=== PATIENT | female | born 1940 | race Caucasian/White ===

== ENCOUNTER 2016-11-13 10:02 | Inpatient (IN) | payer MEDICARE ==
[2016-11-13] MEDS ORDERED: SODIUM CHLORIDE 0.9% 1,000 ML IV STA (10:28)
[2016-11-13] MEDS ORDERED: ACETAMINOPHEN TAB 325 MG TAB PO STA (10:28)
--- NOTE | 2016-11-13 10:37 | ED ---
Fever HPI - General Chief Complaint: Fever Stated Complaint: fever Time Seen by Provider: 11/13/16 10:12 Source: patient Mode of arrival: ambulatory Limitations: no limitations - History of Present Illness Initial Comments: 76-year-old female presents with onset of cough for 2 days. Began having a fever that day [place] night. Up to 101. She then began having some diarrhea and loose stools. His been on no recent antibiotics. Her cough is nonproductive. She has not been eating or drinking well the last 2 days. She anticipated her fever would resolve his private viral. She had a URI about a week and a half ago. She denies any earache sore throat runny nose no frequency urgency dysuria. Patient has had a non-Hodgkin's B-cell lymphoma diagnosed in January 2011 she is no longer on chemotherapy but follows with the oncologist. She had a history of hypertension no diabetes seizures stroke asthma. She has Sjogren syndrome. She also has a history of atrial fibrillation flutter. - Related Data Home Medications Medication Instructions Recorded Confirmed Hydroxychloroquine Sulfate 200 mg PO BID 05/26/15 11/13/16 [Plaquenil] LORazepam [Ativan] 1 mg PO HS PRN 05/26/15 11/13/16 Levothyroxine Sodium [Synthroid] 88 mcg PO SUTUWETHSA 05/26/15 11/13/16 Levothyroxine Sodium [Synthroid] 132 mcg PO MOFR 05/26/15 11/13/16 Pilocarpine [Salagen] 5 mg PO TID 05/26/15 11/13/16 Ranitidine HCl 150 mg PO BID 05/26/15 11/13/16 cycloSPORINE 0.05% OPHTH SOLN 1 drop BOTH EYES BID 05/26/15 11/13/16 [Restasis] Hydrocodone/Acetaminophen 1 tab PO TID PRN 08/31/15 11/13/16 [Hydrocodon-Acetaminophen 5-325] Apixaban [Eliquis] 2.5 mg PO BID 07/28/16 11/13/16 Biotin 5 mg PO DAILY 07/28/16 11/13/16 Spironolactone [Aldactone] 25 mg PO DAILY 07/28/16 11/13/16 Amiodarone [Cordarone] 100 mg PO DAILY 02/26/17 02/26/17 amLODIPine [Norvasc] 5 mg PO DAILY PRN 11/13/16 11/13/16 Previous Rx's Medication Instructions Recorded predniSONE 1 mg PO DAILY tab 09/04/15 Allergies Allergy/AdvReac Type Severity Reaction Status Date / Time Iodinated Contrast Media - Allergy Rash/Hives Verified 11/13/16 12:10 Oral and [Iodinated Contrast Media - IV Dye] Review of Systems ROS Statement: Those systems with pertinent positive or pertinent negative responses have been documented in the HPI. ROS Other: All systems not noted in ROS Statement are negative. Constitutional: Reports: fever, weakness. Denies: chills Eyes: Denies: eye discharge ENT: Denies: ear pain, throat pain Respiratory: Reports: cough. Denies: dyspnea, wheezes Cardiovascular: Denies: chest pain Endocrine: Reports: fatigue Gastrointestinal: Reports: diarrhea (Loose stools 3 a day). Denies: abdominal pain, nausea, vomiting Genitourinary: Denies: urgency, dysuria, frequency Musculoskeletal: Denies: back pain Skin: Denies: rash Neurological: Denies: headache Psychiatric: Denies: anxiety, depression Hematological/Lymphatic: Denies: easy bleeding, easy bruising Past Medical History Past Medical History: Cancer, Deep Vein Thrombosis (DVT), GERD/Reflux, Osteoarthritis (OA), Thyroid Disorder Additional Past Medical History / Comment(s): autoimmune hepatits (1994), sjogrens, lupus, osteoporosis, lymphoma-monthly chemo treatments History of Any Multi-Drug Resistant Organisms: None Reported Past Surgical History: Appendectomy, Breast Surgery, Cholecystectomy, Tonsillectomy Additional Past Surgical History / Comment(s): breast biopsy, paola cataracts, Past Anesthesia/Blood Transfusion Reactions: No Reported Reaction Past Psychological History: No Psychological Hx Reported Smoking Status: Never smoker Past Alcohol Use History: None Reported Past Drug Use History: None Reported - Past Family History Mother Family Medical History: No Reported History, Osteoarthritis (OA) General Exam Limitations: no limitations General appearance: alert, in no apparent distress Head exam: Present: atraumatic Eye exam: Present: normal appearance, PERRL, EOMI ENT exam: Present: normal oropharynx, mucous membranes dry Neck exam: Present: normal inspection. Absent: meningismus Respiratory exam: Present: rales (Left base and anterior right) Cardiovascular Exam: Present: normal heart sounds GI/Abdominal exam: Present: soft. Absent: distended, tenderness Neurological exam: Present: alert, CN II-XII intact Psychiatric exam: Present: normal affect, normal mood Skin exam: Present: warm, dry Course Vital Signs 11/13/16 11/13/16 11/13/16 10:04 10:27 10:48 Temperature 101.2 F H Pulse Rate 60 50 L Respiratory 18 16 16 Rate Blood Pressure 196/79 173/79 O2 Sat by Pulse 98 99 Oximetry Medical Decision Making - Medical Decision Making Spoke with Dr. Perez for Dr Chambers will admit - Lab Data Result diagrams: 11/13/16 10:45 11/13/16 10:45 Lab Results 11/13/16 11/13/16 11/13/16 Range/Units 10:45 10:45 10:50 WBC 4.0 (3.8-10.6) k/uL RBC 4.15 (3.80-5.40) m/uL Hgb 12.7 (11.4-16.0) gm/dL Hct 39.5 (34.0-46.0) % MCV 95.2 (80.0-100.0) fL MCH 30.6 (25.0-35.0) pg MCHC 32.1 (31.0-37.0) g/dL RDW 14.8 (11.5-15.5) % Plt Count 133 L (150-450) k/uL Neutrophils % (Manual) 83.0 % Lymphocytes % (Manual) 4.0 % Monocytes % (Manual) 13.0 % Neutrophils # (Manual) 3.3 (1.3-7.7) k/uL Lymphocytes # (Manual) 0.2 L (1.0-4.8) k/uL Monocytes # (Manual) 0.5 (0-1.0) k/uL Nucleated RBCs 0 (0-0) /100 WBC Manual Slide Review Performed Polychromasia Present Sodium 135 L (137-145) mmol/L Potassium 5.9 H (3.5-5.1) mmol/L Chloride 104 (98-107) mmol/L Carbon Dioxide 20 L (22-30) mmol/L Anion Gap 11 mmol/L BUN 20 H (7-17) mg/dL Creatinine 1.45 H (0.52-1.04) mg/dL Est GFR (MDRD) Af Amer 43 (>60 ml/min/1.73 sqM) Est GFR (MDRD) Non-Af 35 (>60 ml/min/1.73 sqM) Glucose 86 (74-99) mg/dL Calcium 9.2 (8.4-10.2) mg/dL Total Bilirubin 0.8 (0.2-1.3) mg/dL AST 32 (14-36) U/L ALT 32 (9-52) U/L Alkaline Phosphatase 123 (38-126) U/L Total Protein 8.4 H (6.3-8.2) g/dL Albumin 4.0 (3.5-5.0) g/dL Urine Color Yellow Urine Appearance Cloudy H (Clear) Urine pH 6.0 (5.0-8.0) Ur Specific Carmen 1.010 (1.001-1.035) Urine Protein 1+ H (Negative) Urine Glucose (UA) Negative (Negative) Urine Ketones Negative (Negative) Urine Blood Small H (Negative) Urine Nitrate Positive H (Negative) Urine Bilirubin Negative (Negative) Urine Urobilinogen <2.0 (<2.0) mg/dL Ur Leukocyte Esterase Trace H (Negative) Urine RBC 6 H (0-5) /hpf Urine WBC 12 H (0-5) /hpf Ur Squamous Epith Cells 8 H (0-4) /hpf Urine Bacteria Rare H (None) /hpf Urine Mucus Occasional H (None) /hpf - EKG Data -: EKG Interpreted by 11/13/16 11:31 EKG 11/13/2016 1123 ventricular rate 48 bpm, SC interval 154 ms, QRS duration and 32 ms, QT interval 500 ms, sinus bradycardia with right bundle branch block left anterior fascicular block - Radiology Data Radiology results: report reviewed Chronic chest x-ray changes with patchy left infiltrate or atelectasis. Disposition Clinical Impression: Community acquired pneumonia, UTI (urinary tract infection), B-cell lymphoma, Hyperkalemia Disposition: ADMITTED IP TO THIS HOSP Condition: Fair Referrals: Vitaly Chambers MD [Primary Care Provider] - 1-2 days Time of Disposition: 12:17
[2016-11-13 11:01] LABS: Appearance,Urine Cloudy (Clear); Bacteria,Urine Rare /hpf; Bilirubin,Urine Negative (Negative); Glucose,Urine (UA) Negative (Negative); Ketones,Urine Negative (Negative); Leukocyte Esterase,Urine Trace (Negative); Mucus,Urine Occasional /hpf; Nitrite,Urine Positive (Negative); Particle Count 96513; Protein,Urine 1+ (Negative); RBC,Urine 6 /hpf (0-5); Squamous Epithelial Cell,Urine 8 /hpf (0-4); UA Billing (MACRO vs. MICRO) MICRO; Urobilinogen,Urine <2.0 mg/dL (<2.0); WBC,Urine 12 /hpf (0-5)
[2016-11-13 11:01] LABS: Aty Lym Flag Slight; CH 30.7; CHCM 32.4; HCT 39.5 % (34.0-46.0); HDW 2.84; HGB 12.7 gm/dL (11.4-16.0); MCH 30.6 pg (25.0-35.0); MCHC 32.1 g/dL (31.0-37.0); MCV 95.2 fL (80.0-100.0); Mean Platelet Volume 7.2; RBC 4.15 m/uL (3.80-5.40); RDW 14.8 % (11.5-15.5); WBC (Perox) 4.08
[2016-11-13 11:05] LABS: Calcium 9.2 mg/dL (8.4-10.2); Potassium 5.9 mmol/L (3.5-5.1); Total Bilirubin 0.8 mg/dL (0.2-1.3); Total Protein 8.4 g/dL (6.3-8.2)
--- NOTE | 2016-11-13 11:13 | XR ---
EXAMINATION TYPE: XR chest 2V DATE OF EXAM: 11/13/2016 11:03 AM COMPARISON: 08/31/2015 HISTORY: 76-year-old female cough, fever TECHNIQUE: PA and lateral views FINDINGS: Heart remains upper limits of normal in size. Chronic interstitial prominence, possible chronic bronc hitis/asthma. There is some new patchy retrocardiac and left basilar density. No pleural effusion. IMPRESSION: Chronic changes with some new patchy left basilar atelectasis or early infiltrate.
[2016-11-13 11:34] LABS: Add Differential Manual Differential
[2016-11-13 11:37] LABS: Nucleated Red Blood Cells 0 /100 WBC (0-0); Total Cells Counted 100
[2016-11-13 11:38] LABS: Manual Review Performed; Polychromasia Present
[2016-11-13] MEDS ORDERED: amLODIPine 5 MG TAB PO STA (11:55)
[2016-11-13] MEDS ORDERED: NALOXONE 0.4 MG/ML 1 ML VIAL IV PRN (12:18)
[2016-11-13] MEDS ORDERED: ACETAMINOPHEN TAB 325 MG TAB PO PRN (12:20)
[2016-11-13] MEDS ORDERED: HYDROcodone/APAP 5-325MG 1 EACH TAB PO PRN (12:22)
[2016-11-13] MEDS ORDERED: amLODIPine 5 MG TAB PO PRN (12:22)
[2016-11-13] MEDS ORDERED: AZITHROMYCIN 500 MG in SODIUM CHLORIDE 0.9% 250 ML IVPB STA (12:33)
[2016-11-13] MEDS ORDERED: 0.9% NACL WITH KCL 20 MEQ/L 1,000 ML IV ONE (13:00)
[2016-11-13 14:59] VITALS: BMI 28.2
[2016-11-13] MEDS: SODIUM CHLORIDE 0.9% 1,000 ML IV SCH (17:08)
[2016-11-13] MEDS: PILOCARPINE 5 MG TAB PO SCH ×2 (17:49→22:33)
[2016-11-13] MEDS ORDERED: SODIUM POLYSTYRENE SULFONATE 15 GM/60 ML BOTTLE PO STA (18:20)
[2016-11-13] MEDS: FAMOTIDINE 20 MG TAB PO SCH (20:40)
[2016-11-13] MEDS: APIXABAN 2.5 MG TABLET PO SCH (22:33)
[2016-11-13] MEDS: HYDROXYCHLOROQUINE SULFATE 200 MG TAB PO SCH (22:33)
[2016-11-13] MEDS: cycloSPORINE 0.05% OPHTH 0.4 ML DROPERETTE BOTH EYES SCH (22:33)
[2016-11-14] MEDS: SODIUM CHLORIDE 0.9% 1,000 ML IV SCH ×2 (05:47→20:53)
[2016-11-14] MEDS ORDERED: LEVOTHYROXINE 88 MCG TAB PO SCH (06:30)
[2016-11-14 08:11] LABS: Calcium 8.2 mg/dL (8.4-10.2); Magnesium 1.7 mg/dL (1.6-2.3); Potassium 5.5 mmol/L (3.5-5.1); Uric Acid 5.3 mg/dL (3.7-7.4)
[2016-11-14 08:27] LABS: Aty Lym Flag Slight; CH 30.7; CHCM 31.5; HCT 37.3 % (34.0-46.0); HDW 2.91; HGB 11.6 gm/dL (11.4-16.0); Hypochromasia Slight; MCH 30.4 pg (25.0-35.0); MCV 97.9 fL (80.0-100.0); Mean Platelet Volume 8.4; RBC 3.81 m/uL (3.80-5.40); RDW 14.9 % (11.5-15.5); WBC (Perox) 4.09
--- NOTE | 2016-11-14 08:47 | HP ---
DATE OF ADMISSION: 11/13/2016 FULL CODE. DATA: She is 5 foot, 6 inches. Her weight 79.37 kg. Body surface area 1.89 m2. Body mass index 28.2 kg/m2. Allergy to IODINATED CONTRAST MEDIA and ORAL CONTRAST and others. The history and chief complain. Patient presented to the emergency room brought from the [facility] to the emergency room. CHIEF COMPLAINT: Not feeling well, having cold symptoms and she had a fever. HISTORY OF PRESENT ILLNESS: Patient seen and evaluated by the ER physician, Dr. Jacques Mcknight and he stated that she has been onset of cough and she had fever on Monday up to 101. She had then diarrhea and loose bowels, but no recent antibiotic. She had a cough, but nonproductive and she is not eating or drinking in the last 2 days and she was anticipated that will be all resolved and she was brought by private car. PAST MEDICAL HISTORY: She had history of upper respiratory tract infection and she was seen by Dr. Chambers with cold symptoms and he is advised her that if she has any further problem or increased temperature, she may have to call him. Subsequently as symptom appeared during the weekend and he is out of town, patient came to the ER. Currently she denies any ear aches, sore throat, frequency of urination. She had history of B-cell lymphoma and was non-Hodgkin and she was treated by Dr. Ornelas with the two cycles of chemotherapy and it ( ) and since then she had no problem and was diagnosed in [address] Chambers on October [address] Ornelas one week later. PAST MEDICAL HISTORY: She had history of osteoporosis. However, currently in the lab in the ER found that she has also hyperkalemia and they did give her Kayexalate one dose. On the reviewing of the symptoms, neuropsychiatry was negative. She is conscious, alert, oriented, no headache. No blurred vision. On the cardiovascular, she has history of atrial fibrillation. She has been treated with apixaban as well as with amiodarone. She was converted to sinus by Dr. Fariha Salazar who is her shear grinder operator and she did see Dr. Fariha Salazar recently and he told her that her heart rate average of 45 but sinus. The other medical problem including no recurrent of the B-cell lymphoma. On her kidney, I did ask about any previous history of kidney disease. She denied; however, she had increase BUN and creatinine, mainly the creatinine is elevated. Currently no nausea and vomiting and no hematochezia or hematemesis or melena. She has been seen by a liver foreign banknote teller specialist closer to [place] where he advised her that she had autoimmune liver disease that was 5 years ago and she still has been following with him and she has been taking prednisone 1 mg once a day and has been adjusting that prednisone for her. The question if the patient has underlying adrenal insufficiency or not that will be ( ). We will obtain a cortisol level in a.m. She had underlying history of hypertension and she checked her blood pressure at the [facility]. If it is more than 140, Dr. Chambers advised her to take amlodipine. She denied any edema of the lower extremities and denied any urinary symptoms at this time or genitourinary symptoms. No history of pneumonia in the past. She had surgical history of gallbladder, laparoscopic cholecystectomy and she had history of appendectomy and she had history of tonsillectomy at the age of 13. SOCIAL HISTORY: She is a and she has no children. She denies any numbness or tingling or previous stroke. 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 On the examination, patient is conscious, alert, oriented x3. She is giving a good history. Her temperature 98.3 orally. Her pulse rate has been in the average 45 to 50 with the bradycardia and regular sinus. Her blood pressure was on admission 173/79 and currently 152/70 and her pulse ox was 95%. On exam, she is conscious, alert, oriented x3. Her pupils are equal, reactive she had a previous cataract removed with implants by Dr. Rivas. Her ears are negative, oropharynx, has dentures upper and lower. Uvula midline. No sore throat, no runny nose. No congestion over the throat, no recent events of swelling or expectoration. The neck was supple. No JVD. No thyromegaly. No lymphadenopathy. Trachea midline. She had history of hypothyroidism. The chest was clear to auscultation in the upper lung field, lower lung field she has underlying inspiratory rhonchi and no wheezes, however. The heart PMI in the fifth intercostal space was outside the midclavicular line with the underlying bradycardia. I could not hear any gallop. The abdomen is obese, positive bowel sounds. No tenderness in the 4 quadrant and no tenderness in the suprapubic or on the flank area and the extremities she had some bruises and plus the pulses bilateral dorsalis pedis and posterior tibial and she has as well onychomycosis of the toenail bilateral from 1 to 5 in both right and left foot. On the back, she had mild discomfort on the lumbosacral junction with the deep palpation. Otherwise, the risks of the spine is normal. She had no other abnormalities appear on the back. Also the laboratory, I mentioned the laboratory indicating that white count was 4 and platelet count was 133, slightly thrombocytopenia and her sodium is 135, the initial potassium was 5.9 and the second potassium 5.2 with the underlying hyperkalemia. She had also carbon dioxide was 20 slightly below the normal range. Patient could be acidotic and she had BUN of 20, and creatinine 1.4, indicating the estimated glomerular filtration rate is 35% and she had normal blood sugar, normal bilirubin, normal liver enzyme as well as alkaline phosphatase. Her total protein was slightly elevated 4.8 and albumin is normal at 4. She had urinalysis and the urinalysis was indicating that she had a positive nitrate and trace leukocyte and WBC 12, with the indicating definitely presence of urinary tract infection. Her chest x-ray as well that initially done in the ER and that was indicating that she had underlying new patchy left basilar atelectasis or infiltrate. Patient neuro examination was grossly intact. Patient on several medications could be underlying immunosuppressed as well, with the cyclosporin for stasis and also she is on hypothyroidism. She is also on for dryness the mouth she is receiving Salagen and she is prednisone 1 mg has been for the last 5 years and will be checking also serum cortisol level. ASSESSMENT: 1. Urinary tract infection evident by the urinary tract infection by the urinalysis. We do not have the culture yet. 2. Questionable patchy infiltrate with the possibility of early infiltrate and pneumonia of the left basilar considered. 3. Hypoproteinemia with the elevated protein was considered and the thrombocytopenia is considered as well. 4. History of B-cell lymphoma with no recurrence. 5. Hyperkalemia and we will be giving her Kayexalate another dose and as well as have chronic kidney disease stage III and patient apparently was not aware of that but could be associated with her urinary tract infection as well. PLAN: 1. Will hydrate the patient. 2. Will obtain laboratory tomorrow, BMP and CBC with differential and meanwhile we obtained ultrasound of the kidneys, bladder and ureter and start the Kayexalate and continue the antibiotic, which has been on azithromycin and Rocephin as well and further investigation depends on the results of the ultrasound of the kidney as well as the laboratories and the general condition. Patient had recently echocardiogram at Dr. Fariha Salazar. Will try to get copy of that echocardiogram. We will be obtaining influenza A & B as well with the underlying diagnosis of pyrexia. The etiology is unclear at this time with normal hemoglobin.
[2016-11-14] MEDS ORDERED: AZITHROMYCIN 500 MG in SODIUM CHLORIDE 0.9% 250 ML IVPB SCH (09:00)
[2016-11-14] MEDS: FAMOTIDINE 20 MG TAB PO SCH (09:09)
[2016-11-14] MEDS: AMIODARONE 100 MG TAB PO SCH (09:09)
[2016-11-14] MEDS: PILOCARPINE 5 MG TAB PO SCH ×3 (09:09→20:54)
[2016-11-14] MEDS: HYDROXYCHLOROQUINE SULFATE 200 MG TAB PO SCH ×2 (09:10→20:54)
[2016-11-14] MEDS: APIXABAN 2.5 MG TABLET PO SCH ×2 (09:10→20:53)
[2016-11-14] MEDS: cycloSPORINE 0.05% OPHTH 0.4 ML DROPERETTE BOTH EYES SCH ×2 (09:10→20:53)
[2016-11-14] MEDS: predniSONE 1 MG TAB PO SCH (09:10)
--- NOTE | 2016-11-14 09:15 | US ---
EXAMINATION TYPE: US kidneys/renal and bladder DATE OF EXAM: 11/14/2016 8:48 AM COMPARISON: See PACS CLINICAL HISTORY: CKD/ B cell lymphoma. EXAM MEASUREMENTS: Right Kidney: 9.8 x 4.2 x 4.5 cm Left Kidney: 9.7 x 3.6 4.0 cm TECHNOLOGIST IMPRESSION: patient of large body habitus with extensive overlying bowel gas, technical ly difficult and limited study FINDINGS: There is no evidence for hydronephrosis at this point in time. No nephrolithiasis is seen. No soo s are identified. The urinary bladder is anechoic. Bilateral ureteral jets are seen. Hypoechoic nodule involving the left kidney is too small to characterize. IMPRESSION: 1. There is a 1 cm hypoechoic nodule left kidney too small to characterize. 2. Liver is diffusely heterogeneous in appearance. Only portions are demonstrated. Recommend follow-u p hepatic ultrasound.
[2016-11-14 10:41] LABS: Add Differential Manual Differential
[2016-11-14 10:44] LABS: Nucleated Red Blood Cells 0 /100 WBC (0-0); Total Cells Counted 100
[2016-11-14 10:46] LABS: Polychromasia Present
[2016-11-14 10:47] LABS: Large Platelets Present; Manual Review Performed
[2016-11-14] MEDS ORDERED: SODIUM POLYSTYRENE SULFONATE 15 GM/60 ML BOTTLE PO STA (10:54)
[2016-11-14 11:39] LABS: Erythrocyte Sedimentation Rate 33 mm/hr (0-20)
[2016-11-14] MEDS: amLODIPine 10 MG TAB PO SCH (13:21)
--- NOTE | 2016-11-14 18:53 | P.PN ---
Subjective There is a dictation on progress note date of service 11/14/2016, dictated by Dr. Toby Espitia [facility]. Patient seen and evaluated discussed with her in detail [id number]. On admission patient has fever and cough and was suspicious of x-ray phone pneumonitis, as well as UTI found to be enterococcus sensitivity not available. Consultation with Dr. Rivas infectious disease requested, patient has history of B-cell lymphoma and she is on hydroxy quinolone Plaquenil for many years however she could not recall who gave it to her and for what diagnosis, questionable autoimmune disease questionable rheumatoid arthritis, unclear. We also consulted Dr. Ornelas oncology hematology who has been treated her with the B-cell lymphoma in the past for his evaluation and input. Patient has persistent hyperkalemia treated with Kayexalate, she has to have a bowel movement and glucose and the bothering her, patient had potassium today 5.5 and we have to give her another dose of Kayexalate, she has not been taken any medication 2 added potassium on her however to increase the serum potassium , we looked at her medication and she is on Plaquenil and amiodarone, patient has chronic at [place] fibrillation as well Patient found that she had also elevated BUN/creatinine creatinine, we did ultrasound of the kidneys catheter ureter which was insignificant to increase the baseline could be associated with the cardiac function, we will order echocardiogram to disease with Doppler failure for evaluation of the heart and the ejection fraction and the effect on the kidneys. On the physical exam: HEENT negative, neck supple no JVD no thyromegaly no lymphadenopathy trachea midline. Chest there is a coughing, minimal rhonchi's with admission chest x-ray questionable infiltrate, was normal white count, we'll repeat the chest x-ray tomorrow patient on antibiotic. Her heart is regular irregularities controlled ventricular response with the underlying atrial fibrillation. We'll recheck her ejection fraction Abdomen soft positive bowel sounds no tenderness in the 4 quadrant. Extremities : She had bilateral varicose veins. When she came to the hospital initially was because of her fever and chills with negative influenza A and B. Neurologically stable no lateralizing sign. Assessment: #1 UTI with enterococcus associated with fever and chills with the possible immunocompromised. #2 chest x-ray questionable infiltrate with possible pneumonitis or the effect of amiodarone on the chest. #3 she is on Plaquenil with the change of her vision, using it for prolonged time, unclear the treatment for what diagnosis, with possible autoimmune disease, rheumatoid arthritis, other etiology unknown. #4 chronic at [place] fibrillation with the associated possible decreased ejection fraction affecting the kidney with the associated chronic kidney disease. #5 chronic kidney disease. Plan: #[address] Rivas and Dr. Altamirano. #2 obtaining CCP as well ANAs and DNA double-stranded. #3 obtain echocardiogram to assess her ejection fraction. CBC with differential and BMP in a.m. as well as sed rate. Objective - Vital Signs Vital signs: Vital Signs Temp 99.3 F 11/14/16 15:00 Pulse 53 L 11/14/16 16:00 Resp 16 11/14/16 16:00 BP 132/60 11/14/16 15:00 Pulse Ox 94 L 11/14/16 15:00 Intake & Output 11/13/16 11/14/16 11/14/16 18:59 06:59 18:59 Intake Total 200 900 200 Balance 200 900 200 Weight 79.379 kg 79.379 kg Intake: Intake, IV Titration 200 600 Amount Azithromycin 500 mg In 100 Sodium Chloride 0.9% 250 ml @ 125 mls/hr IVPB ONCE STA Rx#:[id number] Sodium Chloride 0.9% 1, 600 000 ml @ 75 mls/hr IV . [id number] Rx#:[id number] cefTRIAXone 1,000 mg In 100 Sodium Chloride 0.9% 50 ml @ 100 mls/hr IVPB ONCE STA Rx#:[id number] Oral 300 200 Other: Voiding Method Toilet Toilet Toilet # Voids 2 1 1 - Labs CBC & Chem 7: 11/14/16 07:24 11/14/16 07:24 Labs: Abnormal Lab Results - Last 24 Hours (Table) 11/14/16 11/14/16 Range/Units 07:24 07:24 Plt Count 127 L (150-450) k/uL Lymphocytes # (Manual) 0.2 L (1.0-4.8) k/uL ESR 33 H (0-20) mm/hr Sodium 134 L (137-145) mmol/L Potassium 5.5 H (3.5-5.1) mmol/L Carbon Dioxide 17 L (22-30) mmol/L BUN 20 H (7-17) mg/dL Creatinine 1.20 H (0.52-1.04) mg/dL Calcium 8.2 L (8.4-10.2) mg/dL
[2016-11-14] MEDS: PIPERACILLIN-TAZOBACTAM 3.375 GM in DEXTROSE/WATER 1 50ML.BAG IVPB SCH (19:54)
[2016-11-14] MEDS: LORazepam 1 MG TAB PO PRN (20:55)
[2016-11-15] MEDS: PIPERACILLIN-TAZOBACTAM 3.375 GM in DEXTROSE/WATER 1 50ML.BAG IVPB SCH ×3 (03:37→20:25)
[2016-11-15] MEDS: LEVOTHYROXINE 88 MCG TAB PO SCH (06:16)
[2016-11-15 07:15] LABS: Basophils % (A) 0 %; CH 30.4; CHCM 31.4; Eosinophils % (A) 0 %; HCT 34.2 % (34.0-46.0); HDW 2.96; HGB 10.8 gm/dL (11.4-16.0); Hypochromasia Slight; Luc # (Auto) 0.06; Luc % (Auto) 2; Lymphocytes # (A) 0.2 k/uL (1.0-4.8); Lymphocytes % (A) 5 %; MCH 30.8 pg (25.0-35.0); MCHC 31.6 g/dL (31.0-37.0); MCV 97.3 fL (80.0-100.0); Mean Platelet Volume 7.9; Monocytes # (A) 0.1 k/uL (0-1.0); Monocytes % (A) 4 %; Neutrophils # (A) 2.7 k/uL (1.3-7.7); Neutrophils % (A) 89 %; RBC 3.51 m/uL (3.80-5.40); RDW 14.7 % (11.5-15.5); WBC 3.1 k/uL (3.8-10.6)
[2016-11-15 07:37] LABS: Calcium 7.8 mg/dL (8.4-10.2); Potassium 4.7 mmol/L (3.5-5.1)
--- NOTE | 2016-11-15 07:55 | XR ---
EXAMINATION TYPE: XR chest 2V DATE OF EXAM: 11/15/2016 7:10 AM COMPARISON: Prior chest x-ray 13 November 2016 HISTORY: Pneumonia, follow-up TECHNIQUE: Frontal and lateral views of the chest are obtained. FINDINGS: Prominent lung volumes suggest underlying COPD. Surgical clips present in the upper abdome n. There are overlying cardiac leads. No pneumothorax or pleural effusion. Interstitium is increased. Heart is again enlarged. Patchy basilar density is again noted. IMPRESSION: Similar findings. There may be some basilar airspace disease or atelectasis, additional follow-up recommended. Suspect interstitial lung disease, difficult to exclude a component of volume overload, interstitial edema. 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
[2016-11-15 08:58] LABS: Erythrocyte Sedimentation Rate 28 mm/hr (0-20)
[2016-11-15] MEDS ORDERED: AZITHROMYCIN 500 MG TAB PO SCH (09:00)
[2016-11-15] MEDS: predniSONE 1 MG TAB PO SCH (09:07)
[2016-11-15] MEDS: PILOCARPINE 5 MG TAB PO SCH ×3 (09:07→22:10)
[2016-11-15] MEDS: cycloSPORINE 0.05% OPHTH 0.4 ML DROPERETTE BOTH EYES SCH ×2 (09:07→22:09)
[2016-11-15] MEDS: FAMOTIDINE 20 MG TAB PO SCH (09:07)
[2016-11-15] MEDS: HYDROXYCHLOROQUINE SULFATE 200 MG TAB PO SCH (09:08)
[2016-11-15] MEDS: amLODIPine 10 MG TAB PO SCH (09:08)
[2016-11-15] MEDS: AMIODARONE 100 MG TAB PO SCH (09:08)
[2016-11-15] MEDS: APIXABAN 2.5 MG TABLET PO SCH ×2 (09:08→22:10)
--- NOTE | 2016-11-15 11:57 | P.CONS ---
History of Present Illness - Reason for Consult Consult date: 11/15/16 Urinary tract infection - History of Present Illness This is a 76-year-old female. She has a significant past medical history for autoimmune hepatitis, Sjogren's, lupus and had been under the care of a meal room hand and powersaw supervisor. 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 She was treated with 2 chemo treatments and the last one was in September 2014 and it did shrink the leg lesion. She is not currently on any treatment for this and follows with Dr. Ornelas. Patient apparently was not able to tolerate any additional treatments. She states during that time she did have a urinary tract infection and has had one episode since completing her chemotherapy which was during a hospitalization in August 2015 at which time she was admitted for atrial fibrillation, new onset. She has been on amiodarone and eliquis since that time. She also has a history of DVT on the right lower extremity and also wound to the right lower extremity for which [facility] under the care of Dr. Thompson a few years ago and had full healing of this wound. She states at least a couple weeks ago she had upper respiratory infection and has never felt that she fully recovered from this. Patient states she has noticed that she has been losing strength for about 2 1/2 weeks. She states she is having difficulty managing her apartment at [facility] and prior to this was very independent and active. Fever started on Monday and she had diarrhea on and off since Monday but now seems to have resolved. She has had very little to eat or drink since Monday and she also has a cough but resolved and then suddenly returned. She denies having nausea or vomiting, abdominal pain. She denies any pain with urination but she wears depends for incontinence and noticed she has had worsening incontinence and possibly more frequent episodes. On Monday she went to cardiology office and she ended up going back to her car and she pushed the button to open the hatchback which then brushed against her and she lost her balance. She thought she was going to fall but, fortunately, she did not have fall or syncope at that time but she was afraid and was concerned that something was wrong. Patient's niece is here from [place] to visit with her and some of the history is being obtained from her. Patient came into [facility] emergency center on November 13. She had a chest x-ray that showed chronic changes with some area of patchy basilar atelectasis or early infiltrate. Renal ultrasound showed a 1 cm hypoechoic non-jolt left kidney which Rosie to small to characterize. Liver has diffusely heterogenous in appearance. She was noted to have a temperature of 101.2, white count was 4. Platelet count was 133 and is now at 111. Cortisol level is 28, TSH 1.580. Influenza testing for a and B was negative. Urinalysis was cloudy, blood small, nitrate positive, leukoesterase trace, RBC 6, WBC is 12, squamous cells 8, bacteria rare. Urine culture showing group D enterococcus and gram-negative bacilli. Blood cultures showing no growth. Initially she came in with a potassium of 5.9 and had Kayexalate given with good results and again patient has not had any further diarrhea since response from Kayexalate. Patient states at this time she is feeling almost back to her baseline and is much improved since she has been admitted. She has been on IV antibiotics with Zosyn.. Review of Systems All systems: negative Constitutional: Reports anorexia, Reports chills, Reports fatigue, Reports fever , Reports poor appetite, Reports weakness Eyes: denies blurred vision, denies pain Ears, nose, mouth and throat: Denies dental pain, Denies headache, Denies mouth pain, Denies sore throat, Denies vertigo Cardiovascular: Reports leg edema, Reports shortness of breath, Denies chest pain, Denies lightheadedness, Denies syncope Respiratory: Reports cough, Denies cough with sputum, Denies dyspnea, Denies excessive sputum, Denies hemoptysis, Denies home oxygen Gastrointestinal: Reports diarrhea, Denies abdominal pain, Denies nausea, Denies vomiting Genitourinary: Reports stress incontinence, Reports urge incontinence, Denies dysuria, Denies hematuria Musculoskeletal: Reports muscle weakness, Denies myalgias Integumentary: Denies pruritus, Denies rash, Denies wounds Neurological: Reports weakness, Denies numbness, Denies visual changes Psychiatric: Denies anxiety, Denies depression Endocrine: Denies fatigue, Denies weight change 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, chronic kidney disease stage III History of Any Multi-Drug Resistant Organisms: None Reported Past Surgical History: Appendectomy, Breast Surgery, Cholecystectomy, Tonsillectomy Additional Past Surgical History / Comment(s): breast biopsy, paola cataracts, biopsy left thigh mass, wound right lower extremity [facility] status post multiple debridements Past Anesthesia/Blood Transfusion Reactions: No Reported Reaction Past Psychological History: No Psychological Hx Reported Smoking Status: Never smoker Past Alcohol Use History: None Reported Additional Past Alcohol Use History / Comment(s): Patient is a lifelong nonsmoker. No illicit drug use. No alcohol abuse or alcohol intake. The patient is worked in the past for [employer]. She lives at [facility] and has a cat in the home. Past Drug Use History: None Reported - Past Family History Mother Family Medical History: No Reported History, Osteoarthritis (OA) Medications and Allergies Home Medications Medication Instructions Recorded Confirmed Type Hydroxychloroquine Sulfate 200 mg PO BID 05/26/15 11/13/16 History [Plaquenil] LORazepam [Ativan] 1 mg PO HS PRN 05/26/15 11/13/16 History Levothyroxine Sodium [Synthroid] 88 mcg PO SUTUWETHSA 05/26/15 11/13/16 History Levothyroxine Sodium [Synthroid] 132 mcg PO MOFR 05/26/15 11/13/16 History Pilocarpine [Salagen] 5 mg PO TID 05/26/15 11/13/16 History Ranitidine HCl 150 mg PO BID 05/26/15 11/13/16 History cycloSPORINE 0.05% OPHTH SOLN 1 drop BOTH EYES BID 05/26/15 11/13/16 History [Restasis] Hydrocodone/Acetaminophen 1 tab PO TID PRN 08/31/15 11/13/16 History [Hydrocodon-Acetaminophen 5-325] Apixaban [Eliquis] 2.5 mg PO BID 07/28/16 11/13/16 History Biotin 5 mg PO DAILY 07/28/16 11/13/16 History Spironolactone [Aldactone] 25 mg PO DAILY 07/28/16 11/13/16 History Amiodarone [Cordarone] 100 mg PO DAILY 11/13/16 11/13/16 History amLODIPine [Norvasc] 5 mg PO DAILY PRN 11/13/16 11/13/16 History Allergies Allergy/AdvReac Type Severity Reaction Status Date / Time Iodinated Contrast Media - Allergy Rash/Hives Verified 11/13/16 12:10 Oral and [Iodinated Contrast Media - IV Dye] Physical Exam Vitals: Vital Signs Temp Pulse Resp BP Pulse Ox 11/15/16 07:00 98.5 F 48 L 16 142/66 93 L 11/15/16 00:00 50 L 16 11/14/16 21:00 97.9 F 46 L 16 138/63 95 11/14/16 16:00 53 L 16 11/14/16 15:00 99.3 F 53 L 16 132/60 94 L Intake and Output 11/14/16 11/15/16 11/15/16 22:59 06:59 14:59 Intake Total 1070 650 Balance 1070 650 Intake: Intake, IV Titration 350 650 Amount Piperacillin-Tazobactam 3 50 50 .375 gm In Dextrose/Water 1 50ml.bag @ 12.5 mls/hr IVPB Q8H BATSHEVA Rx#: [id number] Sodium Chloride 0.9% 1, 300 600 000 ml @ 75 mls/hr IV . [id number] BATSHEVA Rx#:[id number] Oral 720 Other: Voiding Method Toilet Toilet Toilet # Voids 1 1 # Bowel Movements 1 Weight 79.379 kg 79.379 kg Patient Weight 11/16/16 06:59 Weight 79.379 kg Gen: This is a 76-year-old female. She is found sitting up in a chair at the bedside and appears to be in no acute distress. HEENT: Head is atraumatic, normocephalic. Pupils equal, round. Sclerae is anicteric. Conjunctiva pink. Mucous membranes of the mouth are dry. Tongue is smooth. Dentures upper and lower are in place. No thrush noted NECK: Supple. No JVD. No lymphadenopathy. No thyromegaly. LUNGS: A few scattered rhonchi but otherwise good air exchange. No intercostal retractions. HEART: Regular rate and rhythm. No murmur. Bradycardia. ABDOMEN: Soft. Bowel sounds are present. No masses. No tenderness. EXTREMITIES: Trace bilateral pedal edema. No calf tenderness. Dorsalis pedis 1 + bilaterally. NEUROLOGICAL: Patient is awake, alert and oriented x3. Cranial nerves 2 through 12 are grossly intact. Results Results: Laboratory Results WBC 3.1 k/uL (3.8-10.6) L 11/15/16 06:47 RBC 3.51 m/uL (3.80-5.40) L 11/15/16 06:47 Hgb 10.8 gm/dL (11.4-16.0) L 11/15/16 06:47 Hct 34.2 % (34.0-46.0) 11/15/16 06:47 MCV 97.3 fL (80.0-100.0) 11/15/16 06:47 MCH 30.8 pg (25.0-35.0) 11/15/16 06:47 MCHC 31.6 g/dL (31.0-37.0) 11/15/16 06:47 RDW 14.7 % (11.5-15.5) 11/15/16 06:47 Plt Count 111 k/uL (150-450) L 11/15/16 06:47 Neutrophils % 89 % 11/15/16 06:47 Neutrophils % (Manual) 80.0 % 11/14/16 07:24 Lymphocytes % 5 % 11/15/16 06:47 Lymphocytes % (Manual) 5.0 % 11/14/16 07:24 Monocytes % 4 % 11/15/16 06:47 Monocytes % (Manual) 15.0 % 11/14/16 07:24 Eosinophils % 0 % 11/15/16 06:47 Basophils % 0 % 11/15/16 06:47 Neutrophils # 2.7 k/uL (1.3-7.7) 11/15/16 06:47 Neutrophils # (Manual) 3.2 k/uL (1.3-7.7) 11/14/16 07:24 Lymphocytes # 0.2 k/uL (1.0-4.8) L 11/15/16 06:47 Lymphocytes # (Manual) 0.2 k/uL (1.0-4.8) L 11/14/16 07:24 Monocytes # 0.1 k/uL (0-1.0) 11/15/16 06:47 Monocytes # (Manual) 0.6 k/uL (0-1.0) 11/14/16 07:24 Eosinophils # 0.0 k/uL (0-0.7) 11/15/16 06:47 Basophils # 0.0 k/uL (0-0.2) 11/15/16 06:47 Nucleated RBCs 0 /100 WBC (0-0) 11/14/16 07:24 Manual Slide Review Performed 11/14/16 07:24 Large Platelets Present 11/14/16 07:24 Polychromasia Present 11/14/16 07:24 Hypochromasia Slight 11/15/16 06:47 ESR 28 mm/hr (0-20) H 11/15/16 06:47 Sodium 136 mmol/L (137-145) L 11/15/16 06:47 Potassium 4.7 mmol/L (3.5-5.1) 11/15/16 06:47 Chloride 109 mmol/L (98-107) H 11/15/16 06:47 Carbon Dioxide 18 mmol/L (22-30) L 11/15/16 06:47 Anion Gap 9 mmol/L 11/15/16 06:47 BUN 19 mg/dL (7-17) H 11/15/16 06:47 Creatinine 1.39 mg/dL (0.52-1.04) H 11/15/16 06:47 Est GFR (MDRD) Af Amer 45 (>60 ml/min/1.73 sqM) 11/15/16 06:47 Est GFR (MDRD) Non-Af 37 (>60 ml/min/1.73 sqM) 11/15/16 06:47 Glucose 104 mg/dL (74-99) H 11/15/16 06:47 Osmolality 280 mosm/kg (280-301) 11/13/16 12:13 Uric Acid 5.3 mg/dL (3.7-7.4) 11/14/16 07:24 Calcium 7.8 mg/dL (8.4-10.2) L 11/15/16 06:47 Magnesium 1.7 mg/dL (1.6-2.3) 11/14/16 07:24 Total Bilirubin 0.8 mg/dL (0.2-1.3) 11/13/16 10:45 AST 32 U/L (14-36) 11/13/16 10:45 ALT 32 U/L (9-52) 11/13/16 10:45 Alkaline Phosphatase 123 U/L (38-126) 11/13/16 10:45 Total Protein 8.4 g/dL (6.3-8.2) H 11/13/16 10:45 Albumin 4.0 g/dL (3.5-5.0) 11/13/16 10:45 TSH 1.580 mIU/L (0.465-4.680) 11/14/16 07:24 Cortisol 28 ug/dL 11/14/16 07:24 Urine Color Yellow 11/13/16 10:50 Urine Appearance Cloudy (Clear) H 11/13/16 10:50 Urine pH 6.0 (5.0-8.0) 11/13/16 10:50 Ur Specific Dietrich 1.010 (1.001-1.035) 11/13/16 10:50 Urine Protein 1+ (Negative) H 11/13/16 10:50 Urine Glucose (UA) Negative (Negative) 11/13/16 10:50 Urine Ketones Negative (Negative) 11/13/16 10:50 Urine Blood Small (Negative) H 11/13/16 10:50 Urine Nitrate Positive (Negative) H 11/13/16 10:50 Urine Bilirubin Negative (Negative) 11/13/16 10:50 Urine Urobilinogen <2.0 mg/dL (<2.0) 11/13/16 10:50 Ur Leukocyte Esterase Trace (Negative) H 11/13/16 10:50 Urine RBC 6 /hpf (0-5) H 11/13/16 10:50 Urine WBC 12 /hpf (0-5) H 11/13/16 10:50 Ur Squamous Epith Cells 8 /hpf (0-4) H 11/13/16 10:50 Urine Bacteria Rare /hpf (None) H 11/13/16 10:50 Urine Mucus Occasional /hpf (None) H 11/13/16 10:50 Influenza Type A RNA Not Detected (Not Detectd) 11/13/16 21:00 Influenza Type B (PCR) Not Detected (Not Detectd) 11/13/16 21:00 CBC & Chem 7: 11/15/16 06:47 11/15/16 06:47 Labs: Abnormal Lab Results - Last 24 Hours (Table) 11/14/16 11/15/16 11/15/16 Range/Units 07:24 06:47 06:47 WBC 3.1 L (3.8-10.6) k/uL RBC 3.51 L (3.80-5.40) m/uL Hgb 10.8 L (11.4-16.0) gm/dL Plt Count 127 L 111 L (150-450) k/uL Lymphocytes # 0.2 L (1.0-4.8) k/uL Lymphocytes # (Manual) 0.2 L (1.0-4.8) k/uL ESR 33 H 28 H (0-20) mm/hr Sodium 136 L (137-145) mmol/L Chloride 109 H (98-107) mmol/L Carbon Dioxide 18 L (22-30) mmol/L BUN 19 H (7-17) mg/dL Creatinine 1.39 H (0.52-1.04) mg/dL Glucose 104 H (74-99) mg/dL Calcium 7.8 L (8.4-10.2) mg/dL Assessment and Plan Plan: This is a 76-year-old female who was past medical history for multiple autoimmune diseases as well as non-Hodgkin be lymphoma. She presented with signs of sepsis and dehydration, hyperkalemia. Influenza testing was negative. Urinalysis culture is showing group D enterococcus and Klebsiella pneumoniae. She has been on Zosyn for urinary tract infection. It is noted she has had thrombocytopenia and currently with platelet count of 111. Blood culture showing no growth after 24 hours. Patient is anxious to be discharged home. Recommendations will be made for oral antibiotics at discharge. Further recommendations as patient progresses. The above dictated assessment and findings were discussed with Dr. Rivas. The impression and plan of care have been directed as dictated. Daly Del Cid nurse practitioner acting as scribe for Dr. Rivas. Time with Patient: Greater than 30
--- NOTE | 2016-11-15 12:00 | ECHOF ---
Referral Reason:Atrial fibrillation, cardiomyopathy MEASUREMENTS -------- HEIGHT: 167.6 cm WEIGHT: 79.4 kg BP: 132/60 RVIDd: 3.5 cm (< 3.3) IVSd: 1.2 cm (0.6 - 1.1) LVIDd: 4.2 cm (3.9 - 5.3) LVPWd: 1.2 cm (0.6 - 1.1) IVSs: 1.4 cm LVIDs: 3.3 cm LVPWs: 1.7 cm LA Diam: 3.1 cm (2.7 - 3.8) LAESV Index (A-L): 38.05 ml/m Ao Diam: 3.4 cm (2.0 - 3.7) AV Cusp: 1.9 cm (1.5 - 2.6) LA Diam: 3.4 cm (2.7 - 3.8) MV EXCURSION: 19.197 mm (> 18.000) MV EF SLOPE: 94 mm/s (70 - 150) EPSS: 1.1 cm AR PHT: 1515 ms RAP: 5.00 mmHg RVSP: 40.08 mmHg FINDINGS -------- Atrial fibrillation. This was a technically good study. There is borderline concentric left ventricular hypertrophy. Overall left ventricular systolic function is normal with, an EF between 55 - 60 %. The right ventricle is mildly enlarged. LA is moderately dilated 34-39 ml/m2 The right atrial size is normal. Aortic valve is trileaflet and is mildly thickened. There is mild aortic regurgitation. The mitral valve leaflets are mildly thickened. Mild mitral annular calcification present. Mild mitral regurgitation is present. Mild tricuspid regurgitation present. There is mild pulmonary hypertension. The right ventricular systolic pressure, as measured by Doppler, is 40.08mmHg. Moderate pulmonic regurgitation. The aortic root size is normal. The inferior vena cava is mildly dilated. There is no pericardial effusion. CONCLUSIONS -------- 1. Atrial fibrillation. 2. The mitral valve leaflets are mildly thickened. 3. Mild mitral annular calcification present. 4. Mild mitral regurgitation is present. 5. Mild tricuspid regurgitation present. 6. There is mild pulmonary hypertension. 7. The right ventricular systolic pressure, as measured by Doppler, is 40.08mmHg. 8. Moderate pulmonic regurgitation. 9. The aortic root size is normal. 10. The inferior vena cava is mildly dilated. 11. There is no pericardial effusion. 12. This was a technically good study. 13. There is borderline concentric left ventricular hypertrophy. 14. Overall left ventricular systolic function is normal with, an EF between 55 - 60 %. 15. The right ventricle is mildly enlarged. 16. LA is moderately dilated 34-39 ml/m2 17. The right atrial size is normal. 18. Aortic valve is trileaflet and is mildly thickened. 19. There is mild aortic regurgitation. TELEVISION PROGRAM DIRECTOR: Heather Canseco RDCS
--- NOTE | 2016-11-15 13:46 | P.PN ---
Subjective This is a dictation on progress note date of service 11/15/[address] Chris Espitia [facility] Patient seen and evaluated [id number] discussed with the patient and her niece. Also discussed the lab and discussed with Dr. Travis Rivas infectious disease. And she had in the telemetry episodes of bradycardia we will be consulting the harness installer Dr. LEDESMA As well as obtaining echocardiogram. With the underlying lung infiltrate could be associated with mild congestive heart failure. Patient had potassium 4.7 and corrected now however she lost a lot of fluid through the GI tract with the treatment for hyperkalemia and possibly that improved her general condition has decreased volume. On exam she feeling much better today seen by Dr. Rivas infectious disease and he also is not 100% convinced of the pneumonia or pneumonitis however she is on antibiotic for the Enterococcus faecalis which is covered by Zosyn and she will be on oral antibiotic when she gets to be discharged. The of shortness of breath is not clear yet we will be obtaining BNP as well as obtaining echocardiogram and consultation with the cardiology especially with the association of bradycardia she had underlying history of a tibial fibrillation and she is on anticoagulation. Patient on Plaquenil and apparently hit she had a leukopenia with the associated adverse effect of the Plaquenil as well as the visual problem and we will hold the Plaquenil at this time, the laboratory for AMA and DNA and CCP and sed rate not available yet On the physical exam patient conscious alert oriented 3 able to communicate with her niece at bedside and neck was supple and no JVD no thyromegaly no lymphadenopathy trachea midline chest was improved aeration bilaterally no wheezes no rhonchi's and the heart was irregular irregularities with a tibial fibrillation chronically present the abdomen is soft positive bowel sounds and no tenderness in the four-quadrant extremities she had mild varicose veins bilaterally and she does not wear stocking. Neurologically moving 4 extremities ambulatory no added abnormalities no lateralizing sign. Assessment urinary tract infection with sepsis enterococcus faecalis #2 underlying pneumonitis versus mild congestive heart failure considered #3 bradycardia intermittently with a history of atrial fibrillation on anticoagulant. #4 questionable history of autoimmune disease versus inflammatory arthritis #5 adverse effect associated with Plaquenil spatially patient also on amiodarone and will hold the Plaquenil for the Plan hold his Plaquenil until we find the results of the laboratory and will repeat lab in a.m., #2 we'll obtain echocardiogram #[address] LEDESMA. His and a dictation by [facility] Toby Espitia [facility] thank you Objective - Vital Signs Vital signs: Vital Signs Temp 98.5 F 11/15/16 07:00 Pulse 48 L 11/15/16 07:00 Resp 16 11/15/16 07:00 BP 142/66 11/15/16 07:00 Pulse Ox 93 L 11/15/16 07:00 Intake & Output 11/14/16 11/15/16 11/15/16 18:59 06:59 18:59 Intake Total 200 1720 Balance 200 1720 Weight 79.379 kg 79.379 kg Intake: Intake, IV Titration 1000 Amount Piperacillin-Tazobactam 3 100 .375 gm In Dextrose/Water 1 50ml.bag @ 12.5 mls/hr IVPB Q8H [facility]HEVA Rx#: [id number] Sodium Chloride 0.9% 1, 900 000 ml @ 75 mls/hr IV . [id number] BATSHEVA Rx#:[id number] Oral 200 720 Other: Voiding Method Toilet Toilet Toilet # Voids 1 1 # Bowel Movements 1 - Labs CBC & Chem 7: 11/15/16 06:47 11/15/16 06:47 Labs: Abnormal Lab Results - Last 24 Hours (Table) 11/15/16 11/15/16 Range/Units 06:47 06:47 WBC 3.1 L (3.8-10.6) k/uL RBC 3.51 L (3.80-5.40) m/uL Hgb 10.8 L (11.4-16.0) gm/dL Plt Count 111 L (150-450) k/uL Lymphocytes # 0.2 L (1.0-4.8) k/uL ESR 28 H (0-20) mm/hr Sodium 136 L (137-145) mmol/L Chloride 109 H (98-107) mmol/L Carbon Dioxide 18 L (22-30) mmol/L BUN 19 H (7-17) mg/dL Creatinine 1.39 H (0.52-1.04) mg/dL Glucose 104 H (74-99) mg/dL Calcium 7.8 L (8.4-10.2) mg/dL
[2016-11-15] MEDS: SODIUM CHLORIDE 0.9% 1,000 ML IV SCH (14:11)
[2016-11-15] MEDS: SODIUM BICARBONATE TAB 650 MG TAB PO SCH (14:16)
[2016-11-15] MEDS ORDERED: ALBUTEROL NEBULIZED 2.5 MG/3 ML INHALATION PRN (16:21)
[2016-11-15 17:11] LABS: ANA w/Reflex to Titer POSITIVE (NEGATIVE)
[2016-11-15] MEDS: ALBUTEROL NEBULIZED 2.5 MG/3 ML INHALATION SCH (18:40)
--- NOTE | 2016-11-15 21:10 | P.CON ---
Consult Note - . Consult date: 11/15/16 Assessment/Plan:: his is a 76-year-old female. She has a significant past medical history for autoimmune hepatitis, Sjogren's, lupus and had been under the care of a imaging account manager and awning spreader. 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 She was treated with 2 chemo treatments and the last one was in September 2014 and it did shrink the leg lesion. She is not currently on any treatment for this and follows with Dr. Ornelas. Patient apparently was not able to tolerate any additional treatments. She states during that time she did have a urinary tract infection and has had one episode since completing her chemotherapy which was during a hospitalization in August 2015 at which time she was admitted for atrial fibrillation, new onset. She has been on amiodarone and eliquis since that time. She also has a history of DVT on the right lower extremity and also wound to the right lower extremity for which [facility] the care of Dr. Thompson a few years ago and had full healing of this wound. She states at least a couple weeks ago she had upper respiratory infection and has never felt that she fully recovered from this. Patient states she has noticed that she has been losing strength for about 2 1/2 weeks. She states she is having difficulty managing her apartment at [facility] and prior to this was very independent and active. Fever started on Monday and she had diarrhea on and off since Monday but now seems to have resolved. She has had very little to eat or drink since Monday and she also has a cough but resolved and then suddenly returned. She denies having nausea or vomiting, abdominal pain. She denies any pain with urination but she wears depends for incontinence and noticed she has had worsening incontinence and possibly more frequent episodes. On Monday she went to cardiology office and she ended up going back to her car and she pushed the button to open the hatchback which then brushed against her and she lost her balance. She thought she was going to fall but, fortunately, she did not have fall or syncope at that time but she was afraid and was concerned that something was wrong. Patient's niece is here from [place] to visit with her and some of the history is being obtained from her. Patient came into [facility] emergency center on November 13. She had a chest x-ray that showed chronic changes with some area of patchy basilar atelectasis or early infiltrate. Renal ultrasound showed a 1 cm hypoechoic non-jolt left kidney which Rosie to small to characterize. Liver has diffusely heterogenous in appearance. She was noted to have a temperature of 101.2, white count was 4. Platelet count was 133 and is now at 111. Cortisol level is 28, TSH 1.580. Influenza testing for a and B was negative. Urinalysis was cloudy, blood small, nitrate positive, leukoesterase trace, RBC 6, WBC is 12, squamous cells 8, bacteria rare. Urine culture showing group D enterococcus and gram-negative bacilli. Blood cultures showing no growth. Initially she came in with a potassium of 5.9 and had Kayexalate given with good results and again patient has not had any further diarrhea since response from Kayexalate. Patient states at this time she is feeling almost back to her baseline and is much improved since she has been admitted. She has been on IV antibiotics with Zosyn. Lucida consult note as dictated by nurse practitioner Mrs. Daly Del Cid. This pleasant elderly woman has a extensive history of autoimmune disease, non- Hodgkin's B-cell lymphoma and prior treatment with chemotherapy. He has noted urine cultures with Enterococcus faecalis and Klebsiella pneumoniae was fortunately negative blood cultures. Antibiotic therapy currently is with Zosyn which gives coverage for both eyes and pathogens.if she improves or over the option for oral therapy at the time of her transfer. Cultures being monitored. Importance of good nutrition is emphasized that the patient she definitely feels much better. Her niece was present is pleased that she is improving. I agree with evaluation, assessment and plan as dictated by nurse practitioner Mrs. Daly Del Cid.
[2016-11-15] MEDS: LORazepam 1 MG TAB PO PRN (22:10)
--- NOTE | 2016-11-15 22:42 | P.CONS ---
History of Present Illness - Reason for Consult Consult date: 11/15/16 Hx B-cell lymphoma Requesting physician: Alan Perez - Chief Complaint fever, cough - History of Present Illness Ms. Chapman is a very pleasant female pt of Dr. Ornelas who presented with large left thigh mass in early 2014, she had MRI of her thigh on 12/30/2014 which revealed 6.8cm lobulated enhancing mass within the posteromedial left thigh. She was referred to [facility] and on 01/26/2015 she had FNA, pathology was positive for B-cell lymphoid neoplasm with extreme plasmacytic differentiation, low grade but could not be further classified. Staging CT of [facility] on 02/08/2015 showed 3.6 x 1.6 right thoracic paraspinal mass and retrocrural lymphadenopathies measuring 1.7 x 1.6cm, at baseline CBC revealed mild anemia, hgb 11.1gm/dl and mild lymphopenia and hypercalcemia, bone marrow biopsy was negative. 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 She was started on rituxan , cytoxan and prednisone on 07/20/2015. She had 2 cycles and was hospitalized after that cycle due to a-fib with RVR, she tolerated treatment rather poorly but, she had excellent response so it was decided to hold any further treatment. She was seen by Dr. Ornelas on 10/31/16 and placed on 6 month follow up. She has had auto immune hepatitis since 1994 and suffers from Sjogren disease. Pt states that she was having fevers at home, higher then 101F, she had a cough and was feeling progressively more "drained", she came to the hospital and has been admitted diagnosed with pneumonia. She is feeling better today then she did on admit, no fever this AM, she has an appetite, denies having any nausea or vomiting, her cough persists, denies hemoptysis but she is wheezing, no palpitations, abd pain or bloating, dysuria, hematuria, diarrhea or constipation. Review of Systems All systems: negative Constitutional: Reports as per HPI 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, chronic kidney disease stage III History of Any Multi-Drug Resistant Organisms: None Reported Past Surgical History: Appendectomy, Breast Surgery, Cholecystectomy, Tonsillectomy Additional Past Surgical History / Comment(s): breast biopsy, paola cataracts, biopsy left thigh mass, wound right lower extremity [facility] status post multiple debridements Past Anesthesia/Blood Transfusion Reactions: No Reported Reaction Past Psychological History: No Psychological Hx Reported Smoking Status: Never smoker Past Alcohol Use History: None Reported Additional Past Alcohol Use History / Comment(s): Patient is a lifelong nonsmoker. No illicit drug use. No alcohol abuse or alcohol intake. The patient is worked in the past for [employer]. She lives at [facility] and has a cat in the home. Past Drug Use History: None Reported - Past Family History Mother Family Medical History: No Reported History, Osteoarthritis (OA) Medications and Allergies Home Medications Medication Instructions Recorded Confirmed Type Hydroxychloroquine Sulfate 200 mg PO BID 05/26/15 11/13/16 History [Plaquenil] LORazepam [Ativan] 1 mg PO HS PRN 05/26/15 11/13/16 History Levothyroxine Sodium [Synthroid] 88 mcg PO SUTUWETHSA 05/26/15 11/13/16 History Levothyroxine Sodium [Synthroid] 132 mcg PO MOFR 05/26/15 11/13/16 History Pilocarpine [Salagen] 5 mg PO TID 05/26/15 11/13/16 History Ranitidine HCl 150 mg PO BID 05/26/15 11/13/16 History cycloSPORINE 0.05% OPHTH SOLN 1 drop BOTH EYES BID 05/26/15 11/13/16 History [Restasis] Hydrocodone/Acetaminophen 1 tab PO TID PRN 08/31/15 11/13/16 History [Hydrocodon-Acetaminophen 5-325] Apixaban [Eliquis] 2.5 mg PO BID 07/28/16 11/13/16 History Biotin 5 mg PO DAILY 07/28/16 11/13/16 History Spironolactone [Aldactone] 25 mg PO DAILY 07/28/16 11/13/16 History Amiodarone [Cordarone] 100 mg PO DAILY 11/13/16 11/13/16 History amLODIPine [Norvasc] 5 mg PO DAILY PRN 11/13/16 11/13/16 History Allergies Allergy/AdvReac Type Severity Reaction Status Date / Time Iodinated Contrast Media - Allergy Rash/Hives Verified 11/13/16 12:10 Oral and [Iodinated Contrast Media - IV Dye] Physical Exam Vitals: Vital Signs Temp Pulse Resp BP Pulse Ox 11/15/16 16:00 98.3 F 45 L 16 119/66 96 11/15/16 15:03 16 11/15/16 07:00 98.5 F 48 L 16 142/66 93 L 11/15/16 00:00 50 L 16 11/14/16 21:00 97.9 F 46 L 16 138/63 95 Intake and Output 11/15/16 11/15/16 11/15/16 06:59 14:59 22:59 Intake Total 650 200 Balance 650 200 Intake: Intake, IV Titration 650 Amount Piperacillin-Tazobactam 3 50 .375 gm In Dextrose/Water 1 50ml.bag @ 12.5 mls/hr IVPB Q8H BATSHEVA Rx#: [id number] Sodium Chloride 0.9% 1, 600 000 ml @ 75 mls/hr IV . [id number] BATSHEVA Rx#:[id number] Oral 200 Other: Voiding Method Toilet Toilet Toilet # Voids 1 Weight 79.379 kg 79.379 kg Patient Weight 11/16/16 06:59 Weight 79.379 kg - Constitutional General appearance: average body habitus, cooperative, no acute distress - EENT Eyes: anicteric sclerae, normal appearance ENT: normal oropharynx - Neck Neck: no lymphadenopathy - Respiratory Respiratory: right: wheezing, bilateral: rales (scattered) - Cardiovascular Heart sounds: normal: S1, S2 leg Peripheral Edema: right: None, left: 1+ - Gastrointestinal General gastrointestinal: no absent bowel sounds, no decreased bowel sounds, no distended, no hepatomegaly, no hyperactive bowel sounds, normal bowel sounds, no organomegaly, no rigid, no scaphoid, soft, no splenomegaly, no tenderness, no umbilical hernia, no ventral hernia - Neurologic Neurologic: CNII-XII intact - Musculoskeletal Musculoskeletal: strength equal bilaterally - Psychiatric Psychiatric: A&O x's 3, appropriate affect, intact judgment & insight Results CBC & Chem 7: 11/15/16 06:47 11/15/16 06:47 Labs: Abnormal Lab Results - Last 24 Hours (Table) 11/15/16 11/15/16 11/15/16 Range/Units 06:47 06:47 06:47 WBC 3.1 L (3.8-10.6) k/uL RBC 3.51 L (3.80-5.40) m/uL Hgb 10.8 L (11.4-16.0) gm/dL Plt Count 111 L (150-450) k/uL Lymphocytes # 0.2 L (1.0-4.8) k/uL ESR 28 H (0-20) mm/hr Sodium 136 L (137-145) mmol/L Chloride 109 H (98-107) mmol/L Carbon Dioxide 18 L (22-30) mmol/L BUN 19 H (7-17) mg/dL Creatinine 1.39 H (0.52-1.04) mg/dL Glucose 104 H (74-99) mg/dL Calcium 7.8 L (8.4-10.2) mg/dL Ur Random Sodium (30-90) mmol/L ARCENIO Screen POSITIVE H (NEGATIVE) 11/15/16 Range/Units 16:55 WBC (3.8-10.6) k/uL RBC (3.80-5.40) m/uL Hgb (11.4-16.0) gm/dL Plt Count (150-450) k/uL Lymphocytes # (1.0-4.8) k/uL ESR (0-20) mm/hr Sodium (137-145) mmol/L Chloride (98-107) mmol/L Carbon Dioxide (22-30) mmol/L BUN (7-17) mg/dL Creatinine (0.52-1.04) mg/dL Glucose (74-99) mg/dL Calcium (8.4-10.2) mg/dL Ur Random Sodium 93 H (30-90) mmol/L ARCENIO Screen (NEGATIVE) Comments: ECHO report reviewed US kidneys and bladder report reviewed Chest x-ray: report reviewed Assessment and Plan (1) B-cell lymphoma Narrative/Plan: Ig levels will be ordered for review, pt has otherwise been doing well in regards to her lymphoma, no evidence of disease recurrence at this time Will review case in more detail with Dr. Ornelas to see if he would like any other testing while pt is hospitalized. She will keep her 6 month follow up for now. Status: Chronic
[2016-11-16] MEDS: PIPERACILLIN-TAZOBACTAM 3.375 GM in DEXTROSE/WATER 1 50ML.BAG IVPB SCH ×3 (04:00→20:00)
[2016-11-16] MEDS: LEVOTHYROXINE 88 MCG TAB PO SCH (06:22)
[2016-11-16] MEDS: ALBUTEROL NEBULIZED 2.5 MG/3 ML INHALATION SCH ×3 (08:00→16:22)
[2016-11-16 08:07] LABS: Basophils % (A) 0 %; CH 30.8; CHCM 31.6; Eosinophils % (A) 0 %; HDW 3.04; Hypochromasia Slight; Luc % (Auto) 3; Lymphocytes # (A) 0.2 k/uL (1.0-4.8); Lymphocytes % (A) 7 %; MCH 30.8 pg (25.0-35.0); MCHC 31.4 g/dL (31.0-37.0); MCV 98.1 fL (80.0-100.0); Mean Platelet Volume 8.2; Monocytes # (A) 0.3 k/uL (0-1.0); Monocytes % (A) 9 %; Neutrophils % (A) 81 %; RBC 3.57 m/uL (3.80-5.40); WBC 3.7 k/uL (3.8-10.6); WBC (Perox) 3.93
[2016-11-16 08:31] LABS: Calcium 8.4 mg/dL (8.4-10.2); Potassium 4.6 mmol/L (3.5-5.1)
[2016-11-16] MEDS: cycloSPORINE 0.05% OPHTH 0.4 ML DROPERETTE BOTH EYES SCH ×2 (08:35→21:06)
[2016-11-16] MEDS: FAMOTIDINE 20 MG TAB PO SCH (08:35)
[2016-11-16] MEDS: amLODIPine 10 MG TAB PO SCH (08:35)
[2016-11-16] MEDS: AMIODARONE 100 MG TAB PO SCH (08:35)
[2016-11-16] MEDS: SODIUM BICARBONATE TAB 650 MG TAB PO SCH ×2 (08:36→21:07)
[2016-11-16] MEDS: PILOCARPINE 5 MG TAB PO SCH ×3 (08:36→21:08)
[2016-11-16] MEDS: APIXABAN 2.5 MG TABLET PO SCH ×2 (08:36→21:08)
[2016-11-16] MEDS: predniSONE 1 MG TAB PO SCH (08:36)
[2016-11-16] MEDS: FUROSEMIDE 20 MG TAB PO SCH (13:36)
--- NOTE | 2016-11-16 13:52 | CONS ---
DATE OF CONSULTATION: This patient's medical records, EMR reviewed. Patient is known to us with a past history of persistent atrial fibrillation. Patient is being maintained in normal sinus rhythm with amiodarone 100 mg daily. Patient initially had some symptoms of upper respiratory tract infection and she did not feel well and subsequently was admitted in the hospital and she has been treated for urinary tract infection. Since the admission in the hospital, she is feeling much better. She denies any significant shortness of breath or cough. Patient has evidence of resting sinus bradycardia; however, she is asymptomatic. She denies any dizziness, lightheadedness or syncope. Patient has a past history of lupus, Sjogren's syndrome and non-Hodgkin's B-cell lymphoma. Patient's home medications included prednisone, Aldactone 25 mg daily, Synthroid, lorazepam and Plaquenil and apixaban and Cordarone 100 mg daily. Physical examination at present reveals a 76-year-old female who does not appear to be in any acute distress. She is feeling much better. Patient is afebrile. Respirations are not labored. Heart rate is 45 to 50 per minute, asymptomatic. Blood pressure is 137/63 mmHg. HEENT examination is negative. Neck is supple. There is no increase in jugular venous pressure. Both the carotid pulses are felt. There is no bruit. Chest is symmetrical. HEART: The PMI is not felt. First and second heart sounds are normal. Lung examination revealed bilateral scattered wheezes. Abdomen is soft. EXTREMITIES: Peripheral pulsations are 1+. There is no evidence of any leg edema. Patient's electrolytes are normal. Creatinine is 1.51. Patient's BNP level was in the range of 4500. Chest x-ray shows questionable mild volume overload. Patient's echocardiogram is suggestive of possible diastolic dysfunction. FINAL IMPRESSION: 1. This patient is being admitted with urinary tract infection and she is getting better. 2. Patient has a history of paroxysmal atrial flutter fibrillation, now she is been maintained in the normal sinus rhythm. She had sinus bradycardia, but she is asymptomatic. In view of that, we will continue observation. 3. Patient may have a mild component of the chronic diastolic congestive cardiac failure. Her BNP level is moderately elevated. In view of that, I will discharge the patient on Lasix 20 mg daily. We will discontinue Aldactone.
[2016-11-16 16:46] LABS: % Iron Saturation 6.3 % (20-50)
[2016-11-16] MEDS ORDERED: FUROSEMIDE 10 MG/ML 2 ML VIAL IV STA (17:42)
--- NOTE | 2016-11-16 18:17 | P.PN ---
Subjective Visit dictation on progress note by , PCP Dr. Chambers. Dictation on 09/2016 progress note. On exam: #1 patient is conscious alert oriented 3 wants to go home, and despite that she is short of breath and wheezing coughing with never smoked in the past. With the underlying asthma attack. She admitted to the hospital with UTI versus questionable sepsis with the Enterococcus faecalis organisms. She has been on Plaquenil, discussed the side effect with the patient and her caregiver with the leukopenia visual changes. And has been stopped yesterday. Patient has history of autoimmune disease of the liver has been seen by gastroenterology and [facility] and he treated her with prednisone 1 mg once a day. On review of the laboratory with the patient found that she has anemia of iron deficiency we'll start iron as well, also we find that his inflammatory arthritis was treated in the past by Dr. Zheng house detective and they started her on the Plaquenil more than 5 years. With the current laboratory indicating some adverse effects Plaquenil has been stopped. Patient is very symptomatic with the severe shortness of breath as well as she has echocardiogram was indicated that high BNP consultation with cardiology Dr. VC mart indicating diastolic dysfunction with congestive heart failure diastolic type acute on the top questionable chronic started her on Lasix, she still had rhonchi's and rales patient received another dose of 20 mg of Lasix IV tonight. Dr. Rivas discussed with her in detail the current problem with the urine tract infection and the presence of the cleaning aspect after bowel movement. Patient indicated that she has incontinence of the urine and the need to be dry and to change the pull-ups. Her laboratory also indicating that she probably had rheumatoid arthritis questionable dry eyes could be associated with that other than's Sjogren syndrome After extensive discussion myself and Dr. Rivas patient agreed to stay one day more, will be starting steroid as IV Solu-Medrol as well as will start inhalation therapy with DuoNeb Inhalation therapy as well as Pulmicort every 12 hours. And tomorrow will be planning for discharge and we hope that she feel better probably her antibiotic will be changes to oral per Dr. Rivas and he will leave a prescription and will give her inhalation therapy with inhaler and that will be done tomorrow before discharge and we hope that she feel better tomorrow. He [id number] exam discussion with her caregiver answering the question with the best of my ability. HEENT was negative Neck was supple no JVD Chest is as there is wheezing inspiratory and expiratory was probably exacerbation of asthma she never smoked in the past and she had also rhonchi's in the bases and rales she is currently on Zosyn and no evidence of infiltrate and she had leukopenia from the plaque 1. Heart she has a chronic atrial fibrillation and she has underlying intermittent paroxysmal and she is on chronic anticoagulation. Abdomen: Soft positive bowel sounds no organ enlargement. Extremities she had bilateral varicose veins of the lower extremities. And some ecchymosis with the low platelet could be associated as well with the Plaquenil. Genitourinary she had urine incontinent intermittently. Patient is conscious alert oriented 3 ambulatory and goes to the bathroom no neuro deficit. Assessment: #1 Enterococcus faecalis UTI probable with sepsis treated by Dr. Travis Rivas. Infectious disease. #2 underlying leukopenia ecchymosis visual changes with the possibility of the toenail adverse effect stopped. And #3 anemia of iron deficiency. #4 acute asthma exacerbation with wheezing and shortness of breath with minimal exertion. #5 acute diastolic congestive heart failure with normal ejection fraction. #. #6 paroxysmal atrial fibrillation on anticoagulant chronic. #7 history of inflammatory arthritis was treated with Plaquenil, i.e. rheumatoid arthritis, Sjogren. No clear evidence except laboratory indicating positive CCP as well as positive Susan negative DNA with elevated sed rate mildly. #8 hyperkalemia on admission treated with Kayexalate secondary to Aldactone use at home was not mentioned to the nursing staff at the time of the admission, currently her potassium is controlled and Aldactone has been discontinued. Plan: #1 start steroid 60 mg Solu-Medrol IV. IV push every 6 hours, withhold the prednisone 1 mg, start ferrous sulfate 324 mg twice a day. #2 obtaining lab tomorrow to assess potassium and electrolyte with the use of Lasix. #3 inhalation therapy with DuoNeb as well as Pulmicort, as well as IV steroid with the acute exacerbation of asthma associated also with mild cough. #4 underlying interstitial lung disease considered. #5 significant discussion in regards follow-up with Dr. Chmabers, also may need to follow-up with the house detective of her choice. In the future. Visit end of dictation by Dr. Chris BUCKNERP on the progress note date of service 11/16/2069. Objective - Vital Signs Vital signs: Vital Signs Temp 97.8 F 11/16/16 15:25 Pulse 44 L 11/16/16 16:34 Resp 20 11/16/16 15:25 BP 122/42 11/16/16 15:25 Pulse Ox 99 11/16/16 15:25 Intake & Output 11/15/16 11/16/16 11/16/16 18:59 06:59 18:59 Intake Total 200 410 50 Balance 200 410 50 Weight 79.379 kg 79.379 kg Intake: IV 50 Piperacillin-Tazobactam 3 50 .375 gm In Dextrose/Water 1 50ml.bag @ 12.5 mls/hr IVPB Q8H [facility]ATSHEVA Rx#: [id number] Intake, IV Titration 90 Amount Piperacillin-Tazobactam 3 50 .375 gm In Dextrose/Water 1 50ml.bag @ 12.5 mls/hr IVPB Q8H BATSHEVA Rx#: [id number] Sodium Chloride 0.9% 1, 40 000 ml @ 75 mls/hr IV . [id number] BATSHEVA Rx#:[id number] Oral 200 320 Other: Voiding Method Toilet Toilet Toilet # Voids 2 3 - Labs CBC & Chem 7: 11/16/16 07:07 11/16/16 07:07 Labs: Abnormal Lab Results - Last 24 Hours (Table) 11/15/16 11/16/16 11/16/16 Range/Units 06:47 07:07 07:07 WBC 3.7 L (3.8-10.6) k/uL RBC 3.57 L (3.80-5.40) m/uL Hgb 11.0 L (11.4-16.0) gm/dL Plt Count 125 L (150-450) k/uL Lymphocytes # 0.2 L (1.0-4.8) k/uL Chloride 110 H (98-107) mmol/L Carbon Dioxide 18 L (22-30) mmol/L BUN 24 H (7-17) mg/dL Creatinine 1.51 H (0.52-1.04) mg/dL Glucose 107 H (74-99) mg/dL Iron 17 L (37-170) ug/dL % Saturation 6.3 L (20-50) % Cycl Citrul Peptide IgG 24 H (<20) UNITS
--- NOTE | 2016-11-16 18:38 | P.PN ---
Subjective Principal diagnosis: UTI and shortness of breath This is a 76-year-old female. 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 She was treated with 2 chemo treatments and the last one was in September 2014 and it did shrink the leg lesion. She is not currently on any treatment for this and follows with Dr. Ornelas. Patient apparently was not able to tolerate any additional treatments. She states during that time she did have a urinary tract infection and has had one episode since completing her chemotherapy which was during a hospitalization in August 2015 at which time she was admitted for atrial fibrillation, new onset. She has been on amiodarone and eliquis since that time. She also has a history of DVT on the right lower extremity and also wound to the right lower extremity for which [facility] the care of Dr. Thompson a few years ago and had full healing of this wound. She states at least a couple weeks ago she had upper respiratory infection and has never felt that she fully recovered from this. Patient states she has noticed that she has been losing strength for about 2 1/2 weeks. She states she is having difficulty managing her apartment at [facility] and prior to this was very independent and active. Fever started on Monday and she had diarrhea on and off since Monday but now seems to have resolved. She has had very little to eat or drink since Monday and she also has a cough but resolved and then suddenly returned. She denies having nausea or vomiting, abdominal pain. She denies any pain with urination but she wears depends for incontinence and noticed she has had worsening incontinence and possibly more frequent episodes. On Monday she went to cardiology office and she ended up going back to her car and she pushed the button to open the hatchback which then brushed against her and she lost her balance. She thought she was going to fall but, fortunately, she did not have fall or syncope at that time but she was afraid and was concerned that something was wrong. Patient's niece is here from [place] to visit with her and some of the history is being obtained from her. Patient came into [facility] emergency center on November 13. She had a chest x-ray that showed chronic changes with some area of patchy basilar atelectasis or early infiltrate. Renal ultrasound showed a 1 cm hypoechoic non-jolt left kidney which Rosie to small to characterize. Liver has diffusely heterogenous in appearance. She was noted to have a temperature of 101.2, white count was 4. Platelet count was 133 and is now at 111. Cortisol level is 28, TSH 1.580. Influenza testing for a and B was negative. Urinalysis was cloudy, blood small, nitrate positive, leukoesterase trace, RBC 6, WBC is 12, squamous cells 8, bacteria rare. Urine culture showing group D enterococcus and gram-negative bacilli. Blood cultures showing no growth. Initially she came in with a potassium of 5.9 and had Kayexalate given with good results and again patient has not had any further diarrhea since response from Kayexalate. Potassium is improved Aldactone discontinued. Require multiple breathing treatments today. Somewhat anxious for discharge to home. Objective - Vital Signs Vital signs: Vital Signs Temp 97.8 F 11/16/16 15:25 Pulse 44 L 11/16/16 16:34 Resp 20 11/16/16 15:25 BP 122/42 11/16/16 15:25 Pulse Ox 99 11/16/16 15:25 Intake & Output 11/15/16 11/16/16 11/16/16 18:59 06:59 18:59 Intake Total 200 410 50 Balance 200 410 50 Weight 79.379 kg 79.379 kg Intake: IV 50 Piperacillin-Tazobactam 3 50 .375 gm In Dextrose/Water 1 50ml.bag @ 12.5 mls/hr IVPB Q8H BATSHEVA Rx#: [id number] Intake, IV Titration 90 Amount Piperacillin-Tazobactam 3 50 .375 gm In Dextrose/Water 1 50ml.bag @ 12.5 mls/hr IVPB Q8H BATSHEVA Rx#: [id number] Sodium Chloride 0.9% 1, 40 000 ml @ 75 mls/hr IV . [id number] BATSHEVA Rx#:[id number] Oral 200 320 Other: Voiding Method Toilet Toilet Toilet # Voids 2 3 - Exam Gen: This is a 76-year-old female. She is found sitting up in a chair at the bedside and appears to be in no acute distress. HEENT: Head is atraumatic, normocephalic. Pupils equal, round. Sclerae is anicteric. Conjunctiva pink. Mucous membranes of the mouth are dry. Tongue is smooth. Dentures upper and lower are in place. No thrush noted NECK: Supple. No JVD. No lymphadenopathy. No thyromegaly. LUNGS: A few scattered rhonchi but otherwise good air exchange. Positive scattered wheezes are noted. No bronchial sounds. HEART: Regular rate and rhythm. No murmur. Bradycardia. ABDOMEN: Soft. Bowel sounds are present. No masses. No tenderness. EXTREMITIES: Trace bilateral pedal edema. No calf tenderness. Dorsalis pedis 1 + bilaterally. NEUROLOGICAL: Patient is awake, alert and oriented x3. - Labs CBC & Chem 7: 11/16/16 07:07 11/16/16 07:07 Labs: Abnormal Lab Results - Last 24 Hours (Table) 11/15/16 11/16/16 11/16/16 Range/Units 06:47 07:07 07:07 WBC 3.7 L (3.8-10.6) k/uL RBC 3.57 L (3.80-5.40) m/uL Hgb 11.0 L (11.4-16.0) gm/dL Plt Count 125 L (150-450) k/uL Lymphocytes # 0.2 L (1.0-4.8) k/uL Chloride 110 H (98-107) mmol/L Carbon Dioxide 18 L (22-30) mmol/L BUN 24 H (7-17) mg/dL Creatinine 1.51 H (0.52-1.04) mg/dL Glucose 107 H (74-99) mg/dL Iron 17 L (37-170) ug/dL % Saturation 6.3 L (20-50) % Cycl Citrul Peptide IgG 24 H (<20) UNITS Laboratory Results WBC 3.7 k/uL (3.8-10.6) L 11/16/16 07:07 RBC 3.57 m/uL (3.80-5.40) L 11/16/16 07:07 Hgb 11.0 gm/dL (11.4-16.0) L 11/16/16 07:07 Hct 35.0 % (34.0-46.0) 11/16/16 07:07 MCV 98.1 fL (80.0-100.0) 11/16/16 07:07 MCH 30.8 pg (25.0-35.0) 11/16/16 07:07 MCHC 31.4 g/dL (31.0-37.0) 11/16/16 07:07 RDW 15.0 % (11.5-15.5) 11/16/16 07:07 Plt Count 125 k/uL (150-450) L 11/16/16 07:07 Neutrophils % 81 % 11/16/16 07:07 Neutrophils % (Manual) 80.0 % 11/14/16 07:24 Lymphocytes % 7 % 11/16/16 07:07 Lymphocytes % (Manual) 5.0 % 11/14/16 07:24 Monocytes % 9 % 11/16/16 07:07 Monocytes % (Manual) 15.0 % 11/14/16 07:24 Eosinophils % 0 % 11/16/16 07:07 Basophils % 0 % 11/16/16 07:07 Neutrophils # 3.0 k/uL (1.3-7.7) 11/16/16 07:07 Neutrophils # (Manual) 3.2 k/uL (1.3-7.7) 11/14/16 07:24 Lymphocytes # 0.2 k/uL (1.0-4.8) L 11/16/16 07:07 Lymphocytes # (Manual) 0.2 k/uL (1.0-4.8) L 11/14/16 07:24 Monocytes # 0.3 k/uL (0-1.0) 11/16/16 07:07 Monocytes # (Manual) 0.6 k/uL (0-1.0) 11/14/16 07:24 Eosinophils # 0.0 k/uL (0-0.7) 11/16/16 07:07 Basophils # 0.0 k/uL (0-0.2) 11/16/16 07:07 Nucleated RBCs 0 /100 WBC (0-0) 11/14/16 07:24 Manual Slide Review Performed 11/14/16 07:24 Large Platelets Present 11/14/16 07:24 Polychromasia Present 11/14/16 07:24 Hypochromasia Slight 11/16/16 07:07 ESR 28 mm/hr (0-20) H 11/15/16 06:47 Sodium 141 mmol/L (137-145) 11/16/16 07:07 Potassium 4.6 mmol/L (3.5-5.1) 11/16/16 07:07 Chloride 110 mmol/L (98-107) H 11/16/16 07:07 Carbon Dioxide 18 mmol/L (22-30) L 11/16/16 07:07 Anion Gap 13 mmol/L 11/16/16 07:07 BUN 24 mg/dL (7-17) H 11/16/16 07:07 Creatinine 1.51 mg/dL (0.52-1.04) H 11/16/16 07:07 Est GFR (MDRD) Af Amer 41 (>60 ml/min/1.73 sqM) 11/16/16 07:07 Est GFR (MDRD) Non-Af 34 (>60 ml/min/1.73 sqM) 11/16/16 07:07 Glucose 107 mg/dL (74-99) H 11/16/16 07:07 Osmolality 280 mosm/kg (280-301) 11/13/16 12:13 Uric Acid 5.3 mg/dL (3.7-7.4) 11/14/16 07:24 Calcium 8.4 mg/dL (8.4-10.2) 11/16/16 07:07 Magnesium 1.9 mg/dL (1.6-2.3) 11/16/16 07:07 Iron 17 ug/dL (37-170) L 11/16/16 07:07 TIBC 270 ug/dL (265-497) 11/16/16 07:07 % Saturation 6.3 % (20-50) L 11/16/16 07:07 Total Bilirubin 0.8 mg/dL (0.2-1.3) 11/13/16 10:45 Ferritin 58 ng/mL (11-264) 11/16/16 07:07 AST 32 U/L (14-36) 11/13/16 10:45 ALT 32 U/L (9-52) 11/13/16 10:45 Alkaline Phosphatase 123 U/L (38-126) 11/13/16 10:45 Total Protein 8.4 g/dL (6.3-8.2) H 11/13/16 10:45 Albumin 4.0 g/dL (3.5-5.0) 11/13/16 10:45 NT-Pro-B Natriuret Pep 4230 pg/mL 11/15/16 06:47 TSH 1.580 mIU/L (0.465-4.680) 11/14/16 07:24 Cortisol 28 ug/dL 11/14/16 07:24 Urine Color Yellow 11/13/16 10:50 Urine Appearance Cloudy (Clear) H 11/13/16 10:50 Urine pH 6.0 (5.0-8.0) 11/13/16 10:50 Ur Specific [place] 1.010 (1.001-1.035) 11/13/16 10:50 Urine Protein 1+ (Negative) H 11/13/16 10:50 Urine Glucose (UA) Negative (Negative) 11/13/16 10:50 Urine Ketones Negative (Negative) 11/13/16 10:50 Urine Blood Small (Negative) H 11/13/16 10:50 Urine Nitrate Positive (Negative) H 11/13/16 10:50 Urine Bilirubin Negative (Negative) 11/13/16 10:50 Urine Urobilinogen <2.0 mg/dL (<2.0) 11/13/16 10:50 Ur Leukocyte Esterase Trace (Negative) H 11/13/16 10:50 Urine RBC 6 /hpf (0-5) H 11/13/16 10:50 Urine WBC 12 /hpf (0-5) H 11/13/16 10:50 Ur Squamous Epith Cells 8 /hpf (0-4) H 11/13/16 10:50 Urine Bacteria Rare /hpf (None) H 11/13/16 10:50 Urine Mucus Occasional /hpf (None) H 11/13/16 10:50 Urine Osmolality 581 mosm/kg (50-1400) 11/15/16 16:55 Ur Random Sodium 93 mmol/L (30-90) H 11/15/16 16:55 Cycl Citrul Peptide IgG 24 UNITS (<20) H 11/15/16 06:47 ARCENIO Screen POSITIVE (NEGATIVE) H 11/15/16 06:47 Double Strand DNA Ab NEGATIVE (NEGATIVE) 11/15/16 06:47 Anti-DNA Ab Interp <1.0 IU/mL 11/15/16 06:47 Influenza Type A RNA Not Detected (Not Detectd) 11/13/16 21:00 Influenza Type B (PCR) Not Detected (Not Detectd) 11/13/16 21:00 Microbiology 11/13/16 10:45 Blood Blood Culture - Preliminary No Growth after 72 hours 11/13/16 10:50 Urine,Voided Urine Culture - Final Enterococcus faecalis Klebsiella pneumoniae Assessment and Plan (1) UTI (urinary tract infection) Narrative/Plan: 76-year-old woman presents to Hospital with evidence of significant illness. She had evidence of sepsis dehydration. Was also with hyperkalemia. She has not evidence of urinary tract infection with enterococcus and Klebsiella pneumoniae. She's been responding well to the current antibiotic therapy and piperacillin tazobactam. Overall she is improved but is having some wheezing today. Followed by cardiology retreating for her diastolic congestive heart failure and is having some improvement with breathing treatments as well as diuretic therapy. The patient was somewhat anxious about going home. I meet with the primary care physician and the patient as well as her advocate. We suggest the importance of enhancing her current breathing treatments so that she will do well at home and not require going back 3 to the hospital. She does understand and agrees. Would expect Bierly tomorrow she'll be doing better and it may be discharged home. As far as antimicrobial therapy at home ciprofloxacin 500 mg every 12 hours for 7 days has been sent to her pharmacy. Status: Acute (2) B-cell lymphoma Status: Chronic (3) Diastolic congestive heart failure Status: Acute
[2016-11-16] MEDS: methylPREDNISolone SOD SUCCI 125 MG/2 ML VIAL IV SCH ×2 (19:22→23:16)
[2016-11-16] MEDS: IPRATROPIUM-ALBUTEROL 3 ML NEB INHALATION SCH (19:44)
[2016-11-16] MEDS: BUDESONIDE 0.5 MG/2 ML NEBU INHALATION SCH (19:44)
[2016-11-16] MEDS: LORazepam 1 MG TAB PO PRN (19:53)
[2016-11-16] MEDS: FERROUS SULFATE 325 MG TAB PO SCH (19:53)
[2016-11-17] MEDS: PIPERACILLIN-TAZOBACTAM 3.375 GM in DEXTROSE/WATER 1 50ML.BAG IVPB SCH (02:56)
[2016-11-17] MEDS: methylPREDNISolone SOD SUCCI 125 MG/2 ML VIAL IV SCH (04:45)
[2016-11-17] MEDS: LEVOTHYROXINE 88 MCG TAB PO SCH (06:06)
[2016-11-17 07:48] VITALS: BP 136/65; RESP 18; TEMP 97
[2016-11-17] MEDS: PILOCARPINE 5 MG TAB PO SCH (08:17)
[2016-11-17] MEDS: AMIODARONE 100 MG TAB PO SCH (08:17)
[2016-11-17] MEDS: APIXABAN 2.5 MG TABLET PO SCH (08:17)
[2016-11-17] MEDS: cycloSPORINE 0.05% OPHTH 0.4 ML DROPERETTE BOTH EYES SCH (08:17)
[2016-11-17] MEDS: FAMOTIDINE 20 MG TAB PO SCH (08:17)
[2016-11-17] MEDS: amLODIPine 10 MG TAB PO SCH (08:17)
[2016-11-17] MEDS: SODIUM BICARBONATE TAB 650 MG TAB PO SCH (08:17)
[2016-11-17] MEDS: FUROSEMIDE 20 MG TAB PO SCH (08:17)
[2016-11-17] MEDS: FERROUS SULFATE 325 MG TAB PO SCH (08:17)
[2016-11-17] MEDS: IPRATROPIUM-ALBUTEROL 3 ML NEB INHALATION SCH (08:40)
[2016-11-17] MEDS: BUDESONIDE 0.5 MG/2 ML NEBU INHALATION SCH (08:40)
[2016-11-17 08:43] VITALS: PULSE 52
[2016-11-17 09:29] LABS: Calcium 9.1 mg/dL (8.4-10.2); Magnesium 1.7 mg/dL (1.6-2.3); Potassium 4.9 mmol/L (3.5-5.1)
[2016-11-17 09:32] LABS: Basophils % (A) 0 %; CH 30.3; CHCM 31.6; Eosinophils % (A) 0 %; HCT 38.9 % (34.0-46.0); HDW 3.03; Hypochromasia Slight; Luc # (Auto) 0.02; Luc % (Auto) 1; Lymphocytes # (A) 0.2 k/uL (1.0-4.8); Lymphocytes % (A) 4 %; MCH 29.9 pg (25.0-35.0); MCHC 30.9 g/dL (31.0-37.0); MCV 96.7 fL (80.0-100.0); Mean Platelet Volume 7.5; Monocytes # (A) 0.1 k/uL (0-1.0); Monocytes % (A) 3 %; Neutrophils # (A) 3.3 k/uL (1.3-7.7); Neutrophils % (A) 92 %; RBC 4.02 m/uL (3.80-5.40); RDW 14.9 % (11.5-15.5); WBC 3.6 k/uL (3.8-10.6)
--- NOTE | 2016-11-17 09:40 | P.DS ---
Providers Date of admission: 11/13/16 12:24 Attending physician: Vitaly Chambers Consults: 11/14/16 15:49 Consult Physician Urgent Consulting Provider: Heena Ornelas Consult Reason/Comments: B cell lymphoma Do you want consulting provider notified?: Yes 11/14/16 16:01 Consult Physician Urgent Consulting Provider: Travis Rivas Consult Reason/Comments: uti Do you want consulting provider notified?: Yes 11/15/16 13:28 Consult Physician Routine Consulting Provider: Andrew Salazar Consult Reason/Comments: bradicardia Do you want consulting provider notified?: Already Contacted Primary care physician: Vitaly Chambers discharge summary dictated 11/17/2016 time spend more than 40 min . lab and med.rec reviewed . Patient Condition at Discharge: Fair Plan - Discharge Summary New Discharge Prescriptions: Albuterol Inhaler [Ventolin Hfa Inhaler] 2 puff INHALATION QID #1 inhaler Ciprofloxacin HCl [Cipro] 500 mg PO Q12HR #14 tablet Ferrous Sulfate [Iron (65 MG Elemental)] 325 mg PO BID-W/MEALS #60 tab Fluticasone/Salmeterol [Advair Hfa 230-21 Mcg Inhaler] 2 puff INHALATION BID #1 inhaler Furosemide [Lasix] 20 mg PO DAILY #30 tab Discharge Medication List LORazepam [Ativan] 1 mg PO HS PRN 05/26/15 [History] Levothyroxine Sodium [Synthroid] 88 mcg PO SUTUWETHSA 05/26/15 [History] Levothyroxine Sodium [Synthroid] 132 mcg PO MOFR 05/26/15 [History] Pilocarpine [Salagen] 5 mg PO TID 05/26/15 [History] Ranitidine HCl 150 mg PO BID 05/26/15 [History] cycloSPORINE 0.05% OPHTH SOLN [Restasis] 1 drop BOTH EYES BID 05/26/15 [History] Hydrocodone/Acetaminophen [Hydrocodon-Acetaminophen 5-325] 1 tab PO TID PRN [History] predniSONE 1 mg PO DAILY tab 09/04/15 [Rx] Apixaban [Eliquis] 2.5 mg PO BID 07/28/16 [History] Biotin 5 mg PO DAILY 07/28/16 [History] Amiodarone [Cordarone] 100 mg PO DAILY 11/13/16 [History] amLODIPine [Norvasc] 5 mg PO DAILY PRN 11/13/16 [History] Ciprofloxacin HCl [Cipro] 500 mg PO Q12HR #14 tablet 11/16/16 [Rx] Albuterol Inhaler [Ventolin Hfa Inhaler] 2 puff INHALATION QID #1 inhaler [Rx] Ferrous Sulfate [Iron (65 MG Elemental)] 325 mg PO BID-W/MEALS #60 tab 11/17/16 [Rx] Fluticasone/Salmeterol [Advair Hfa 230-21 Mcg Inhaler] 2 puff INHALATION BID #1 inhaler 11/17/16 [Rx] Furosemide [Lasix] 20 mg PO DAILY #30 tab 11/17/16 [Rx] Follow up Appointment(s)/Referral(s): Vitaly Chambers MD [Primary Care Provider] - 12/12/16 3:45 pm Patient Instructions/Handouts: Ciprofloxacin (By mouth), Furosemide (By mouth) , Albuterol (By breathing), Fluticasone/Salmeterol (By breathing), Urinary Tract Infection in Women (DC), Hyperkalemia (DC)
--- NOTE | 2016-11-17 10:15 | DS ---
DATE OF ADMISSION: 11/13/2016 DATE OF DISCHARGE: DATE OF SERVICE: 11/17/2016 NEW DATA: She is a FULL CODE. Her height is 5 foot 6 inches, weight 79.379 kg, body surface area 1.89 m2, BMI body mass index 28.2 kg/m2. The allergy to IODINATED CONTRAST MEDIA AND ORAL and others. FINAL DIAGNOSES: 1. Hyperkalemia secondary to Aldactone. 2. Urinary tract infection with sepsis. 3. Community-acquired pneumonia was only suspicious with the underlying probably volume overload with the history of chronic atrial fibrillation, paroxysmal. 4. Diastolic congestive heart failure, acute. 5. Enterococcus faecalis and Klebsiella pneumonia in the urine. 6. Inflammatory arthritis by the history with probably rheumatoid, associated with Sjogren. 7. Urinary incontinence. 8. Anemia, mild iron-deficiency with mixed type with chronic anemia. 9. History of B-cell lymphoma. No recurrence. 10. Hypothyroidism, stable. 11. Autoimmune disease of the liver, treated with prednisone 1 mg. 12. Acute exacerbation of asthma. No evidence of chronic obstructive pulmonary disease and no history of smoking. 13. Anxiety disorder. 14. Acute asthma attack. 15. Thrombocytopenia secondary probably to Plaquenil. The patient's history and chief complaint: Patient admitted through the emergency room with fever and chills associated with the urinary tract and found in the ER she had hyperkalemia. Patient admitted to the floor and with the hyperkalemia, patient received Kayexalate; however, the potassium is persistent and we continued to use Kayexalate until the potassium down to 4.7. Found that her congestion is progressive and apparently cough with the probably history of volume overload. Patient appeared as pneumonia in the ER; however, did not have pneumonia actually. The echocardiogram was indicating diastolic congestive heart failure with a normal ejection fraction as well as the BMP was more than 2000, which is indicative of acute diastolic congestive heart failure. Patient seen by Dr. Fariha Salazar who referred her to follow with her own cardiology that she has been following as outpatient and he started her on Lasix and we gave her extra doses of Lasix last night and today on the [id number] examination, patient was conscious, alert and oriented x3 appearing significantly great, able to breath, no wheezes, no rhonchi with the underlying acute asthma attack and the patient continued with inhalation therapy and as well as nebulizers in the hospital. On discharge, we did add the Ventolin inhaler 2 puffs q.i.d. and p.r.n. as well as Advair HFA 230/221 two puffs twice a day. Patient will be following with Dr. Chambers in one week and if she needs any further treatment, she can call our office. Patient advised also to see her memorial mason of her choice. She did see in the past Dr. Rebolledo who has prescribed for her the Plaquenil which has been discontinued as well as the Aldactone was discontinued with the evidence adverse effect of the plaque as well as the vision changes, as well as leukopenia and anemia. With the current physical exam as mentioned, HEENT was negative. Neck was supple and no thyromegaly. No lymphadenopathy. Trachea midline. Chest was clear today on auscultation and percussion and complete resolution. Heart was regular sinus with the change from atrial fibrillation on admission to regular sinus after episode of bradycardia as evaluated by Dr. Fariha Salazar. Abdomen is soft, positive bowel sounds. EXTREMITIES: No edema. She had varicose veins bilaterally. As patient's stable general condition, ambulatory and breathing better, feeling better, able to eat. Will be discharged home today to follow up with Dr. Chambers. CONSULTING PHYSICIAN: Dr. Rivas and Dr. Fariha Salazar and advised to be followed with Dr. Rebolledo who has been seeing her in the past for re-evaluation and re-diagnosis of her inflammatory arthritis with a positive CCP, positive ARCENIO and positive sed rate elevation. The patient has stable general condition for discharge and she is discharged today on November 17, 2016.
== END 2016-11-17 11:50 | disposition home health service (06) | DRG 871 ==
LOC: EC 10:02 → 5MS5E 12:24
PROVIDERS: ADMIT Internal Medicine; ATTEND Internal Medicine
DX: A41.81 Sepsis due to Enterococcus (principal); J18.9 Pneumonia, unspecified organism; I50.31 Acute diastolic (congestive) heart failure; C85.10 Unspecified B-cell lymphoma, unspecified site; D69.59 Other secondary thrombocytopenia; I48.1 Persistent atrial fibrillation; I13.0 Hypertensive heart and chronic kidney disease with heart failure and stage 1 through stage 4 chronic kidney disease, or unspecified chronic kidney disease; N39.0 Urinary tract infection, site not specified; J45.901 Unspecified asthma with (acute) exacerbation; J98.11 Atelectasis; E87.5 Hyperkalemia; E86.0 Dehydration; M35.00 Sjogren syndrome, unspecified; N18.3 Chronic kidney disease, stage 3 (moderate); K75.4 Autoimmune hepatitis; T50.0X5A Adverse effect of mineralocorticoids and their antagonists, initial encounter; T37.8X5A Adverse effect of other specified systemic anti-infectives and antiparasitics, initial encounter; B35.1 Tinea unguium; M81.0 Age-related osteoporosis without current pathological fracture; Z90.49 Acquired absence of other specified parts of digestive tract; M19.90 Unspecified osteoarthritis, unspecified site; E03.9 Hypothyroidism, unspecified; D72.819 Decreased white blood cell count, unspecified; K21.9 Gastro-esophageal reflux disease without esophagitis; B96.1 Klebsiella pneumoniae [K. pneumoniae] as the cause of diseases classified elsewhere; M06.4 Inflammatory polyarthropathy; R32 Unspecified urinary incontinence; D50.9 Iron deficiency anemia, unspecified; F41.9 Anxiety disorder, unspecified; I83.93 Asymptomatic varicose veins of bilateral lower extremities; Z98.42 Cataract extraction status, left eye; Z98.41 Cataract extraction status, right eye; Z96.1 Presence of intraocular lens; Z91.041 Radiographic dye allergy status; Z92.21 Personal history of antineoplastic chemotherapy; Z86.718 Personal history of other venous thrombosis and embolism; Z79.01 Long term (current) use of anticoagulants; Z79.52 Long term (current) use of systemic steroids; Z79.899 Other long term (current) drug therapy
CPT/HCPCS: 36415; 71020; 76770; 80048; 80053; 81001; 82103; 82533; 82728; 82784; 83540; 83550; 83735; 83880; 83930; 83935; 84132; 84300; 84443; 84550; 85025; 85652; 86038; 86039; 86200; 86225; 87040; 87077; 87086; 87186; 87502; 93005; 93306; 94640; 96365; 99285

== ENCOUNTER → 2017-02-22 | Outpatient (CLI) | payer MEDICARE ==
--- NOTE | 2017-02-22 09:36 | MM ---
Reason for exam: screening (asymptomatic). Last mammogram was performed 1 year and 2 months ago. History: Patient is postmenopausal, history of other cancer, and is nulliparous. Benign left mammotome panel of the left breast, December 01, 2006. Physical Findings: A clinical breast exam by your physician is recommended on an annual basis and results should be correlated with mammographic findings. MG Screening Mammo w CAD Bilateral CC and MLO view(s) were taken. Prior study comparison: December 17, 2015, bilateral MG screening mammo w CAD. December 15, 2014, bilateral MG screening mammo w CAD. The breast tissue is heterogeneously dense. This may lower the sensitivity of mammography. Benign calcifications. There is no discrete abnormality. No significant changes when compared with prior studies. ASSESSMENT: Benign, BI-RAD 2 RECOMMENDATION: Routine screening mammogram of both breasts in 1 year.
--- NOTE | 2017-02-22 12:04 | BD ---
EXAMINATION TYPE: MG DEXA axial skeleton. DATE OF EXAM: 02/22/2017 COMPARISON: NONE CLINICAL HISTORY: [id number] SCREENING FOR OSTEOPOROSIS Height: 64.5 Weight: 177.9 FRAX RISK QUESTIONS: Alcohol (3 or more units per day): NO Family History (Parent hip fracture): NO Glucocorticoids (More than 3mos): PREDNOSONE SINCE 1994 (Ex: prednisone, prednisolone, methylprednisolone, dexamethasone, and hydrocortisone). History of Fracture in Adulthood: NO Secondary Osteoporosis: 1. Type 1 Diabetes: NO 2. Hyperthyroidism: NO 3. Menopause before 45: NO 4. Malnutrition: NO 5. Chronic liver disease: YES Rheumatoid Arthritis: NO Current Tobacco Use: NO RISK FACTORS HISTORY OF: Hip Fracture (Right/Left): NO Spine Fracture: NO History of Wrist Fracture: NO Surgery to Spine/Hip(right/left)/Wrist (right/left): NO Family History of Osteoporosis: YES Active: YES Diet low in dairy products/other sources of calcium: NO Postmenopausal woman: AGE 54 Lost more than 2 inches in height since high school: NO Frequent falls: NO Adrenal Insufficiency: NO MEDICATIONS: Prednisone or other steroids: YES How Long: SINCE 1994 Thyroid Medications: LEVATHYROXINE How Long: LONG TIME Additional Medications: HYDROCODONE, SALAGENPILO CARPINE HCL, ELIQUIS, AMOLDIPINE,SPIRONOLACTONE Additional History: EXAM MEASUREMENTS: Bone mineral densitometry was performed using the [employer] How To System. Bone mineral density as measured about the Lumbar spine is: ----- L1-L4(G/cm2): 1.178 T Score Values are as follows: ----- L2: 0.0 ----- L3: 0.2 ----- L4: -0.6 ----- L1-L4: 0.0 Bone mineral density has: INCREASED 0.7 % since study of: 12.15.2014 Bone mineral density about the R hip (g/cm2): 0.808 Bone mineral density about the L hip (g/cm2): 0.712 T Score values are as follows: -----R Neck: -1.7 -----L Neck: -2.3 -----R Total: -2.3 -----L Total: -2.7 Bone mineral density has: DECREASED -4.8 % since study of: 12.15.2014 IMPRESSION: 1. Osteoporosis about the left hip and osteopenia about the right hip. NOTE: T-SCORE=SD OF THE YOUNG ADULT MEAN.
== END | disposition home or self-care (01) ==
LOC: RADMAMWWP 07:50
PROVIDERS: ATTEND Obstetrics & Gynecology
DX: Z12.31 Encounter for screening mammogram for malignant neoplasm of breast (principal); M81.0 Age-related osteoporosis without current pathological fracture; M85.80 Other specified disorders of bone density and structure, unspecified site
CPT/HCPCS: 77080; G0202

== ENCOUNTER → 2017-04-27 | Outpatient (CLI) | payer MEDICARE ==
--- NOTE | 2017-04-27 13:47 | PN ---
DATE OF SERVICE: 04/27/2017 A 76-year-old lady who had been evaluated in the [facility] for sleep problems. Multiple awakenings from sleep, nocturia, dryness of the mouth during awakenings. HISTORY OF PRESENT ILLNESS/SLEEP WAKE EVALUATION: Patient's usual sleep schedule from around 10 p.m. to 7 a.m. Usually she does not have any problem with falling sleep but sometimes she may think about her problems and that may create some problems with her falling asleep. She sleeps by herself so no clear information about her snoring or breathing during the sleep. She has TV set in the bedroom. Usually sleep in the side position. Wakes up from sleep at least 5 times with up to 5 episodes of nocturia. No history of hypnagogical hallucinations, sleep paralysis or cataplexy. During the day she may feel sleepy and falling asleep during the day according to her and her family. Sometimes she has episodes of anxiety. [place] sleepiness scale is 3. PAST MEDICAL HISTORY: Positive for atrial fibrillation for about 2 years, lupus erythematosus, asthma, rheumatoid arthritis, hypothyroidism, Sjorgen's syndrome, nodules in the lungs, biopsy of the nodules showed inflammatory. Positive history of lymphoma of left ( ), status post chemotherapy, thrush in the mouth. MEDICATIONS: Restasis, prednisone, lorazepam, ranitidine, hydrochlorothiazide, levothyroxine, hydrocodone, acetaminophen, ( ), Eliquis, amlodipine, spironolactone. SOCIAL HISTORY: Never for smoking or using alcohol. REVIEW OF SYSTEMS: Multiple awakenings from sleep, sleepiness during the day. FAMILY HISTORY: Hypertension, hyperlipidemia, arthritis, sinus headaches, mental illness. PHYSICAL EXAM: A lady without distress. BP 177/75, HR 64, RR 16, height 5 foot 3, weight 176, BMI 31, neck 15 inches in circumference, temp 98.2, oxygen saturation at room air 97%. OROPHARYNX: Extremely low position of soft palate, thrush on the tongue and cheeks. HEART: S1, S2 sounds regular to me. Splitting of second tone on pulmonary artery. ABDOMEN: Obese. EXTREMITIES: 1+ bilateral ankle edema. Weakness in her legs, difficulties to walk, using walker. NECK: Supple, No JVD. Thyroid is not palpable. LUNGS: Clear to percussion and to auscultation. Good air exchange. No wheezing or rhonchi. MOLD TOOLER: Awake, alert, and oriented x3. Cranial nerves 2 to 7 intact. There is no fasciculation or atrophy noted. No focal deficits observed. Sincerely, IMPRESSION: 1. Multiple awakenings from sleep 5 times with nocturia and dry mouth. Extremely low position of soft palate. Sleepiness during the day. Obstructive sleep apnea-hypopnea syndrome. 2. History of atrial fibrillation. 3. History of lupus erythematosus. 4. History of Sjorgren's syndrome. 5. Asthma. 6. Hypothyroidism. 7. History of rheumatoid arthritis. 8. History of multiple nodules in the lungs, results of biopsy showed inflammatory changes. 9. 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 10. Thrush in the mouth. PLAN: 1. Titration with positive air pressure. 2. Watching and losing weight. 3. Sleep hygiene with regular time in bed for at least 8 hours. 4. No driving if feeling any sleepiness. 5. ( ) for treatment of insomnia. Thank you very much for referring this patient for consultation. Sincerely, Abhishek Van MD, PhD, FAASM. Diplomat of [place] [employer], Sleep Medicine Board by [place] [employer] [employer] Digital Forensic Analyst of [facility] [place] [facility]
== END ==
LOC: SLEEP 10:26
PROVIDERS: ATTEND Internal Medicine
DX: G47.33 Obstructive sleep apnea (adult) (pediatric) (principal); J45.909 Unspecified asthma, uncomplicated; I48.91 Unspecified atrial fibrillation; E03.9 Hypothyroidism, unspecified; L93.0 Discoid lupus erythematosus; M06.9 Rheumatoid arthritis, unspecified; M35.00 Sjogren syndrome, unspecified; Z79.899 Other long term (current) drug therapy
CPT/HCPCS: 99211

== ENCOUNTER → 2017-08-09 | Outpatient (CLI) | payer MEDICARE ==
--- NOTE | 2017-08-09 12:50 | XR ---
EXAMINATION TYPE: XR clavicle LT, XR shoulder complete LT DATE OF EXAM: 08/09/2017 CLINICAL HISTORY: Left shoulder and clavicular pain after a fall. TECHNIQUE: Three views of the left shoulder are obtained. Additionally 2 views of the left clavicle were obtained. COMPARISON: None. FINDINGS: There is no acute fracture/dislocation evident in the left shoulder. There is mild acromio clavicular arthropathy with marginal osteophytes and capsular hypertrophy. There is moderate left gle nohumeral arthropathy with bony irregularity of the glenoid and small marginal osteophytes of the hum erus. There is also joint space narrowing of the glenohumeral joint. The clavicle is intact as are th e visualized ribs. The patient's chin obscures the lung apices. IMPRESSION: 1. There is no acute fracture or dislocation in the left shoulder. 2. No evidence of left clavicular fracture. 3. Mild acromioclavicular arthropathy and moderate glenohumeral arthropathy. If there is persistent p ain MRI could be performed to evaluate for rotator cuff injury.
== END | disposition home or self-care (01) ==
LOC: RADXRMAIN 09:12
PROVIDERS: ATTEND Internal Medicine
DX: M12.812 Other specific arthropathies, not elsewhere classified, left shoulder (principal)

== ENCOUNTER → 2017-08-16 | Outpatient (CLI) | payer MEDICARE ==
--- NOTE | 2017-08-16 15:21 | PN ---
PROGRESS NOTE DATE OF SERVICE: 08/16/2017. A 77-year-old lady who has been followed in the Sleep Center for treatment of obstructive sleep apnea-hypopnea syndrome several months ago. Patient had polysomnogram and following CPAP titration and I discussed results of the sleep study with her and his family in detail. Patient has severe sleep apnea. She was started on treatment with CPAP. Recently she had some difficulties with CPAP secondary to the mask, when mask was changed to another style of the mask and patient was able to use it every night without significant problems, but then she had fracture of her left arm and has difficulties to put the mask on because it is difficult to do with one hand. [place] Sleepiness Scale today is 5. I checked patient's CPAP unit. Usage is /42 nights and more than 4 hours is 17/42 nights. Average usage is 6.7 hours. Pressure in the machine is 9 cm of water. Leak is 34 L/minute which is slightly higher than I would like to see. Apnea-hypopnea index is 1.8, which is in normal range and this is for the whole period of time of usage of the machine. MEDICATIONS: Restasis, cyclosporine, prednisone, lorazepam, amiodarone, Ranitidine, hydrochloroquine, levothyroxine, Eliquis, amlodipine, spironolactone. PHYSICAL EXAM: Patient in no distress. BP 148/79, HR 79, RR 16, weight 180.6, temp 98.0, oxygen saturation at room air is 100%. OROPHARYNX: Extremely low position of soft palate. ABDOMEN: Obese. EXTREMITIES: 1+ ankle edema. Neck Supple, no JVD. Thyroid is not palpable. LUNGS Clear to percussion and to auscultation. Good air exchange. No wheezing or rhonchi. HEART S1, S2 regular. No murmurs, gallops, or rubs. MANAGER MASS Awake, alert, and oriented X3. Cranial nerves 2 to 7 intact. There is no fasciculation or atrophy. noted. No focal deficits observed. IMPRESSION: 1. Severe obstructive sleep apnea-hypopnea syndrome; apnea-hypopnea index 53.0 with oxygen saturation to 71% on control with CPAP at 9 cm of water. Recently patient used her CPAP equipment every night. Presently, she has difficulties because of the fracture of her left arm and she has difficulties to put the mask on. 2. History of atrial fibrillation. 3. History of lupus erythematosus. 4. History of Sjogren syndrome. 5. Asthma. 6. Hypothyroidism. 7. History of rheumatoid arthritis. 8. History of multiple nodules in the lungs with inflammatory changes by biopsy. 9. 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 PLAN: 1. I discussed with the patient possibility to try to put small nasal pillow mask, only with the right hand at the present time. Patient will try to do it. 2. Sleep hygiene with regular time in bed for at least 7.5 hours. 3. Losing weight. 4. Patient does not drive at the present time. Thank you very much for allowing me to participate in management of your patient. Sincerely, Abhishek Van MD, PhD, FAASM Diplomat of [place] [employer] [place] [employer] Clinical Trials Assistant of [facility] [place] MMODL / LISYN: [id number] /
== END | disposition home or self-care (01) ==
LOC: SLEEP 13:18
PROVIDERS: ATTEND Internal Medicine
DX: G47.33 Obstructive sleep apnea (adult) (pediatric) (principal); S42.302D Unspecified fracture of shaft of humerus, left arm, subsequent encounter for fracture with routine healing; L93.0 Discoid lupus erythematosus; I48.91 Unspecified atrial fibrillation; M35.00 Sjogren syndrome, unspecified; M06.9 Rheumatoid arthritis, unspecified; J45.909 Unspecified asthma, uncomplicated; E03.9 Hypothyroidism, unspecified; R91.8 Other nonspecific abnormal finding of lung field; Z85.79 Personal history of other malignant neoplasms of lymphoid, hematopoietic and related tissues; Z92.21 Personal history of antineoplastic chemotherapy; Z79.899 Other long term (current) drug therapy

== ENCOUNTER 2017-11-07 07:53 | Inpatient (IN) | payer MEDICARE ==
[2017-11-07] MEDS ORDERED: ACETAMINOPHEN TAB 500 MG TAB PO STA (08:12)
[2017-11-07] MEDS ORDERED: SODIUM CHLORIDE 0.9% 500 ML IV ONE (08:13)
--- NOTE | 2017-11-07 08:16 | ED ---
General Adult HPI - General Chief complaint: Nausea/Vomiting/Diarrhea Stated complaint: diarrhea Time Seen by Provider: 11/07/17 07:56 Source: patient, EMS, RN notes reviewed Mode of arrival: EMS Limitations: no limitations - History of Present Illness Initial comments: 77-year-old female resents for evaluation of nausea, and diarrhea. Patient's symptoms began approximately 8 PM. She states she has had significant amount of explosive diarrhea. Denies significant abdominal pain. Does have some nausea. No vomiting. No chest pain or shortness of breath. Denies any URI symptoms, no cough symptoms. No dysuria. Patient is on anticoagulation for with history of atrial fibrillation. She does report that her stools are dark at baseline however she takes supplemental iron and believes this is the cause of her dark stool. Patient has no pain complaints at the time my evaluation. No recent antibiotic exposure. No known sick contacts. - Related Data Home Medications Medication Instructions Recorded Confirmed LORazepam [Ativan] 1 mg PO HS 05/26/15 11/07/17 Levothyroxine Sodium [Synthroid] 88 mcg PO SUTUWETHSA 05/26/15 11/07/17 Levothyroxine Sodium [Synthroid] 132 mcg PO MOFR 05/26/15 11/07/17 [place]arpine [Salagen] 5 mg PO TID 05/26/15 11/07/17 Ranitidine HCl 150 mg PO BID PRN 05/26/15 11/07/17 cycloSPORINE 0.05% OPHTH SOLN 1 drop BOTH EYES BID 05/26/15 11/07/17 [Restasis] Hydrocodone/Acetaminophen 1 tab PO TID PRN 08/31/15 11/07/17 [Hydrocodon-Acetaminophen 5-325] Amiodarone [Cordarone] 50 mg PO Q48H 11/13/16 11/07/17 amLODIPine [Norvasc] 5 mg PO DAILY 11/13/16 11/07/17 Albuterol Inhaler [Ventolin Hfa 2 puff INHALATION RT-QID PRN 11/07/17 11/07/17 Inhaler] Apixaban [Eliquis] 2.5 mg PO BID 11/07/17 11/07/17 Fluticasone/Salmeterol [Advair Hfa 2 puff INHALATION RT-BID 11/07/17 11/07/17 230-21 Mcg Inhaler] Furosemide [Lasix] 20 mg PO BID 11/07/17 11/07/17 Hydroxychloroquine Sulfate 200 mg PO BID 11/07/17 11/07/17 [Plaquenil] Previous Rx's Medication Instructions Recorded predniSONE 1 mg PO DAILY tab 09/04/15 Ferrous Sulfate [Iron (65 MG 325 mg PO BID-W/MEALS #60 tab 11/17/16 Elemental)] Allergies Allergy/AdvReac Type Severity Reaction Status Date / Time Iodinated Contrast- Oral and Allergy Rash/Hives Verified 11/07/17 09:19 IV Dye [Iodinated Contrast Media - IV Dye] Review of Systems ROS Statement: Those systems with pertinent positive or pertinent negative responses have been documented in the HPI. ROS Other: All systems not noted in ROS Statement are negative. 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, chronic kidney disease stage III History of Any Multi-Drug Resistant Organisms: None Reported Past Surgical History: Appendectomy, Breast Surgery, Cholecystectomy, Tonsillectomy Additional Past Surgical History / Comment(s): breast biopsy, paola cataracts, biopsy left thigh mass, wound right lower extremity [facility] status post multiple debridements Past Anesthesia/Blood Transfusion Reactions: No Reported Reaction Past Psychological History: No Psychological Hx Reported Smoking Status: Never smoker Past Alcohol Use History: None Reported Additional Past Alcohol Use History / Comment(s): Patient is a lifelong nonsmoker. No illicit drug use. No alcohol abuse or alcohol intake. The patient is worked in the past for [employer]. She lives at [facility] and has a cat in the home. Past Drug Use History: None Reported - Past Family History Mother Family Medical History: No Reported History, Osteoarthritis (OA) General Exam Limitations: no limitations General appearance: alert, in no apparent distress Head exam: Present: atraumatic, normocephalic Eye exam: Present: normal appearance, PERRL ENT exam: Present: mucous membranes dry Neck exam: Present: normal inspection. Absent: tenderness, meningismus Respiratory exam: Present: normal lung sounds bilaterally. Absent: respiratory distress, wheezes Cardiovascular Exam: Present: regular rate, normal rhythm GI/Abdominal exam: Present: soft. Absent: distended, tenderness, guarding Extremities exam: Present: normal inspection, normal capillary refill. Absent: pedal edema Neurological exam: Present: alert, oriented X3. Absent: motor sensory deficit Psychiatric exam: Present: normal affect, normal mood Skin exam: Present: warm, dry, intact. Absent: cyanosis, diaphoretic Course Vital Signs 11/07/17 11/07/17 11/07/17 07:54 08:02 09:31 Temperature 102.5 F H 99.4 F Pulse Rate 92 81 Respiratory 20 20 Rate Blood Pressure 160/68 139/63 O2 Sat by Pulse 90 L 95 95 Oximetry EKG Findings - EKG Comments: EKG Findings:: EKG shows normal sinus rhythm, right bundle branch block, ventricular rate 88, PA interval 142, castration 126, QTC 454, no signs of acute ischemia Medical Decision Making - Medical Decision Making 77 yo female presenting with diarrhea. Patient clinically appears dehydrated. Electrolytes within normal limits, creatinine 1.17 which is stable from baseline. Mild lactic acidosis 2.7. X-rays obtained, negative for focal pneumonia. X-ray abdomen is consistent with enteritis and colitis given the history of diarrhea. Urinalysis positive for nitrate and few bacteria, as patient was febrile on presentation, urine culture and blood cultures are pending. Patient is given 1 dose of antibiotics in the emergency department for concern of UTI. She will be admitted for continued IV hydration and reevaluation. C. difficile toxin pending - Lab Data Result diagrams: 11/07/17 08:00 11/07/17 08:00 Lab Results 11/07/17 11/07/17 11/07/17 Range/Units 08:00 08:00 08:00 WBC 5.3 (3.8-10.6) k/uL RBC 4.35 (3.80-5.40) m/uL Hgb 13.5 (11.4-16.0) gm/dL Hct 43.8 (34.0-46.0) % MCV 100.6 H (80.0-100.0) fL MCH 31.0 (25.0-35.0) pg MCHC 30.9 L (31.0-37.0) g/dL RDW 13.1 (11.5-15.5) % Plt Count 133 L (150-450) k/uL Neutrophils % (Manual) 89 % Band Neutrophils % 9 % Lymphocytes % (Manual) 2 % Monocytes % (Manual) 1 % Neutrophils # (Manual) 5.10 (1.3-7.7) k/uL Lymphocytes # (Manual) 0.11 L (1.0-4.8) k/uL Monocytes # (Manual) 0.05 (0-1.0) k/uL Plasma Cell # (Manual) 0.05 H (0) k/uL Nucleated RBCs 0 (0-0) /100 WBC Plasma Cells % 1 % Hypochromasia Slight Anisocytosis (manual) Present PT (9.0-12.0) sec INR (<1.2) APTT (22.0-30.0) sec Sodium 141 (137-145) mmol/L Potassium 3.7 (3.5-5.1) mmol/L Chloride 111 H (98-107) mmol/L Carbon Dioxide 18 L (22-30) mmol/L Anion Gap 12 mmol/L BUN 30 H (7-17) mg/dL Creatinine 1.17 H (0.52-1.04) mg/dL Est GFR (MDRD) Af Amer 55 (>60 ml/min/1.73 sqM) Est GFR (MDRD) Non-Af 45 (>60 ml/min/1.73 sqM) Glucose 104 H (74-99) mg/dL Plasma Lactic Acid Fabio 2.7 H* (0.7-2.0) mmol/L Calcium 9.1 (8.4-10.2) mg/dL Total Bilirubin 1.1 (0.2-1.3) mg/dL AST 79 H (14-36) U/L ALT 42 (9-52) U/L Alkaline Phosphatase 175 H (38-126) U/L Total Protein 6.3 (6.3-8.2) g/dL Albumin 3.0 L (3.5-5.0) g/dL Urine Color Urine Appearance (Clear) Urine pH (5.0-8.0) Ur Specific [place] (1.001-1.035) Urine Protein (Negative) Urine Glucose (UA) (Negative) Urine Ketones (Negative) Urine Blood (Negative) Urine Nitrite (Negative) Urine Bilirubin (Negative) Urine Urobilinogen (<2.0) mg/dL Ur Leukocyte Esterase (Negative) Urine RBC (0-5) /hpf Urine WBC (0-5) /hpf Ur Squamous Epith Cells (0-4) /hpf Amorphous Sediment (None) /hpf Urine Bacteria (None) /hpf Urine Mucus (None) /hpf Influenza Type A RNA (Not Detectd) Influenza Type B (PCR) (Not Detectd) 11/07/17 11/07/17 11/07/17 Range/Units 08:00 08:00 09:33 WBC (3.8-10.6) k/uL RBC (3.80-5.40) m/uL Hgb (11.4-16.0) gm/dL Hct (34.0-46.0) % MCV (80.0-100.0) fL MCH (25.0-35.0) pg MCHC (31.0-37.0) g/dL RDW (11.5-15.5) % Plt Count (150-450) k/uL Neutrophils % (Manual) % Band Neutrophils % % Lymphocytes % (Manual) % Monocytes % (Manual) % Neutrophils # (Manual) (1.3-7.7) k/uL Lymphocytes # (Manual) (1.0-4.8) k/uL Monocytes # (Manual) (0-1.0) k/uL Plasma Cell # (Manual) (0) k/uL Nucleated RBCs (0-0) /100 WBC Plasma Cells % % Hypochromasia Anisocytosis (manual) PT 10.8 (9.0-12.0) sec INR 1.1 (<1.2) APTT 20.3 L (22.0-30.0) sec Sodium (137-145) mmol/L Potassium (3.5-5.1) mmol/L Chloride (98-107) mmol/L Carbon Dioxide (22-30) mmol/L Anion Gap mmol/L BUN (7-17) mg/dL Creatinine (0.52-1.04) mg/dL Est GFR (MDRD) Af Amer (>60 ml/min/1.73 sqM) Est GFR (MDRD) Non-Af (>60 ml/min/1.73 sqM) Glucose (74-99) mg/dL Plasma Lactic Acid Fabio (0.7-2.0) mmol/L Calcium (8.4-10.2) mg/dL Total Bilirubin (0.2-1.3) mg/dL AST (14-36) U/L ALT (9-52) U/L Alkaline Phosphatase (38-126) U/L Total Protein (6.3-8.2) g/dL Albumin (3.5-5.0) g/dL Urine Color Light Yellow Urine Appearance Cloudy H (Clear) Urine pH 5.5 (5.0-8.0) Ur Specific [place] 1.006 (1.001-1.035) Urine Protein 1+ H (Negative) Urine Glucose (UA) Negative (Negative) Urine Ketones Negative (Negative) Urine Blood Negative (Negative) Urine Nitrite Positive H (Negative) Urine Bilirubin Negative (Negative) Urine Urobilinogen <2.0 (<2.0) mg/dL Ur Leukocyte Esterase Negative (Negative) Urine RBC 2 (0-5) /hpf Urine WBC 3 (0-5) /hpf Ur Squamous Epith Cells <1 (0-4) /hpf Amorphous Sediment Few H (None) /hpf Urine Bacteria Few H (None) /hpf Urine Mucus Occasional H (None) /hpf Influenza Type A RNA Not Detected (Not Detectd) Influenza Type B (PCR) Not Detected (Not Detectd) Disposition Clinical Impression: Dehydration, Lactic acidosis, Diarrhea Disposition: ADMITTED IP TO THIS [facility] Condition: Stable Referrals: Vitaly Chambers MD [Primary Care Provider] - 1-2 days Time of Disposition: 10:43 Decision to Admit Reason: Admit from EC Decision Date: 11/07/17 Decision Time: 10:44
[2017-11-07] MEDS: SODIUM CHLORIDE 0.9% 1,000 ML IV SCH (08:20)
[2017-11-07 08:37] LABS: HCT 43.8 % (34.0-46.0); HGB 13.5 gm/dL (11.4-16.0); Hypochromasia Slight; MCHC 30.9 g/dL (31.0-37.0); MCV 100.6 fL (80.0-100.0); Mean Platelet Volume 7.5; Platelet Count 133 k/uL (150-450); RBC 4.35 m/uL (3.80-5.40); RDW 13.1 % (11.5-15.5); WBC 5.3 k/uL (3.8-10.6)
[2017-11-07 08:42] LABS: Calcium 9.1 mg/dL (8.4-10.2); Potassium 3.7 mmol/L (3.5-5.1); Total Bilirubin 1.1 mg/dL (0.2-1.3); Total Protein 6.3 g/dL (6.3-8.2)
[2017-11-07 08:51] LABS: INR 1.1 (<1.2); Prothrombin Time 10.8 sec (9.0-12.0)
[2017-11-07 08:55] LABS: Partial Thromboplastin Time 20.3 sec (22.0-30.0)
[2017-11-07 09:04] LABS: Band Neutrophils % 9 %; Lymphocytes # (M) 0.11 k/uL (1.0-4.8); Nucleated Red Blood Cells 0 /100 WBC (0-0); Plasma Cells # (M) 0.05 k/uL (0); Plasma Cells % 1 %
[2017-11-07 09:05] LABS: Monocytes # (M) 0.05 k/uL (0-1.0); Neutrophils % (M) 89 %; Total Cells Counted 200
[2017-11-07 09:06] LABS: Anisocytosis (M) Present
--- NOTE | 2017-11-07 09:40 | XR ---
Abdomen HISTORY: Fever nausea and diarrhea Frontal view of the abdomen on 2 images. No comparisons Vascular calcifications suspected within the pelvis. There is a spinal curvature present. Surgical cl ips are present in the right upper quadrant. Lung bases are clear. No evident bowel obstruction or pn eumoperitoneum. Question some loss of normal folds along the distribution of the bowel wall. IMPRESSION: There may be an underlying enteritis, colitis, correlate. Follow-up recommended.
--- NOTE | 2017-11-07 09:43 | XR ---
EXAMINATION TYPE: XR chest 2V DATE OF EXAM: 11/07/2017 COMPARISON: Prior chest x-ray 11/15/2016 HISTORY: Fever, nausea and diarrhea TECHNIQUE: Frontal and lateral views of the chest are obtained. FINDINGS: There are overlying cardiac leads. Lung volumes are low. Patient is rotated. No evident ai rspace disease, pneumothorax, or pleural effusion. Cardiomediastinal silhouette, pulmonary vascularit y and lino not significantly changed accounting for differences in technique. Suspect there is promin ence of interstitium. The aorta is dense. Bone mineralization is reduced. IMPRESSION: Similar findings to prior exam. There may be interstitial lung disease. Expiratory rotat ed exam. Follow-up as indicated.
[2017-11-07 10:05] LABS: Amorphous Sediment,Urine Few /hpf; Appearance,Urine Cloudy (Clear); Bacteria,Urine Few /hpf; Bilirubin,Urine Negative (Negative); Blood,Urine Negative (Negative); Color,Urine Light Yellow; Glucose,Urine (UA) Negative (Negative); Ketones,Urine Negative (Negative); Leukocyte Esterase,Urine Negative (Negative); Mucus,Urine Occasional /hpf; Nitrite,Urine Positive (Negative); PH, Urine 5.5 (5.0-8.0); Protein,Urine 1+ (Negative); RBC,Urine 2 /hpf (0-5); Specific Gravity,Urine 1.006 (1.001-1.035); Squamous Epithelial Cell,Urine <1 /hpf (0-4); Urobilinogen,Urine <2.0 mg/dL (<2.0); WBC,Urine 3 /hpf (0-5)
[2017-11-07] MEDS ORDERED: cefTRIAXone IN SWFI 1,000 MG/10 ML SYRINGE IVP STA (10:37)
[2017-11-07] MEDS ORDERED: ACETAMINOPHEN TAB 325 MG TAB PO PRN (10:38)
[2017-11-07] MEDS ORDERED: NALOXONE 0.4 MG/ML 1 ML VIAL IV PRN (10:38)
[2017-11-07] MEDS: PILOCARPINE 5 MG TAB PO SCH ×2 (15:31→21:24)
[2017-11-07] MEDS ORDERED: ALBUTEROL NEBULIZED 2.5 MG/3 ML INHALATION PRN (18:20)
[2017-11-07] MEDS ORDERED: FAMOTIDINE 20 MG TAB PO PRN (18:20)
[2017-11-07] MEDS: cycloSPORINE 0.05% OPHTH 0.4 ML DROPERETTE BOTH EYES SCH (20:45)
[2017-11-07] MEDS: LORazepam 1 MG TAB PO SCH (20:45)
[2017-11-07] MEDS: APIXABAN 2.5 MG TABLET PO SCH (20:45)
[2017-11-07] MEDS: SYMBICORT 160-4.5 MCG INHALER INHALATION SCH (20:51)
[2017-11-08] MEDS: HYDROcodone/APAP 5-325MG 1 EACH TAB PO PRN ×2 (05:53→23:47)
[2017-11-08] MEDS: LEVOTHYROXINE 88 MCG TAB PO SCH (05:53)
[2017-11-08] MEDS ORDERED: DIPHENOX-ATROP 2.5-0.025 MG 1 EACH TAB PO PRN ×2 (08:00→08:19)
[2017-11-08] MEDS: SODIUM CHLORIDE 0.9% 1,000 ML IV SCH ×3 (08:06→14:45)
[2017-11-08] MEDS: SYMBICORT 160-4.5 MCG INHALER INHALATION SCH ×2 (08:12→20:53)
[2017-11-08] MEDS: cycloSPORINE 0.05% OPHTH 0.4 ML DROPERETTE BOTH EYES SCH ×2 (08:16→21:49)
[2017-11-08] MEDS: APIXABAN 2.5 MG TABLET PO SCH ×2 (08:16→21:49)
[2017-11-08] MEDS: amLODIPine 5 MG TAB PO SCH (08:16)
[2017-11-08] MEDS: PILOCARPINE 5 MG TAB PO SCH ×3 (08:17→21:49)
[2017-11-08] MEDS: predniSONE 1 MG TAB PO SCH (08:17)
[2017-11-08] MEDS ORDERED: AMIODARONE 100 MG TAB PO SCH (09:00)
[2017-11-08 09:05] VITALS: BMI 28.0
[2017-11-08] MEDS: cefTRIAXone IN SWFI 1,000 MG/10 ML SYRINGE IVP SCH (12:37)
[2017-11-08] MEDS ORDERED: FAMOTIDINE 20 MG TAB PO PRN (15:30)
[2017-11-08] MEDS: LORazepam 1 MG TAB PO SCH (21:49)
--- NOTE | 2017-11-09 02:16 | HP ---
HISTORY AND PHYSICAL ATTENDING PHYSICIAN: Dr. Avery Chambers. DATE OF ADMISSION: 11/07/2017 DATE OF SERVICE: 11/07/2017. CHIEF COMPLAINT: Diarrhea. HISTORY OF PRESENT ILLNESS: This 77-year-old was admitted to the hospital after presenting to the emergency room with significant profuse diarrhea through the night. The patient complains weakness. She denies any fever or chills. However, the patient was noted to be febrile with a temperature 102.5 in the emergency room. The patient has felt nauseous but no vomiting. Denies any abdominal pain. There was no blood or mucus in the stool. The patient denies having any contact with anybody who has had the same symptoms. 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 At that time the patient subsequently developed atrial fibrillation which resolved and has not had any further symptoms. The patient also has a history of hypothyroidism. Showed pneumonia back about a year ago. Previous echocardiogram revealed EF off 55-60%. Patient does have some degenerative arthritis. PAST SURGICAL HISTORY: Significant for appendectomy, cholecystectomy, tonsillectomy. A biopsy of the left thigh lymphoma. PERSONAL HISTORY: Nonsmoker. Alcohol none. ALLERGIES: TO IVP DYE. MEDICATIONS: Medications include: 1. Prednisone 1 mg daily. 2. Restasis eye drops. 3. Norvasc 5 mg p.r.n. 4. Zantac 150 mg b.i.d. 5. Salagen 5 mg t.i.d. 6. Synthroid 88 mcg 5 days a week and 132 mcg 2 days a week. 7. Ativan 1 mg at q.h.s. 8. Plaquenil 200 mg b.i.d. 9. [place] 1 p.r.n. t.i.d. 10.Lasix 20 mg b.i.d. 11.Advair 2 puffs b.i.d. 12.Ferrous sulfate b.i.d. 13.Eliquis 2.5 mg b.i.d. 14.Ventolin inhaler. SOCIAL HISTORY: The patient is , lives alone. FAMILY MEDICAL HISTORY: Noncontributory. She had no children. A sister with history of dementia, hypertension. REVIEW OF SYSTEMS: NEURO: Denies any headaches, dizziness. No double vision or blurred vision. No symptoms of TIA, syncope or seizures. Psych: No anxiety or depression. Cardiac: Denies chest pain, angina, palpitations. Respiratory: Denies shortness of breath, cough, hemoptysis. GI has some nausea. No vomiting. No abdominal pain. Present complaint of diarrhea. no symptoms of dysuria, hematuria, urgency, frequency. Extremities: Reveal no pain. Does have some edema. Constitutional: The patient had chills and fever this morning. Noted to have temperature 102.5, which she did not recognize. SKIN: No rashes. PHYSICAL EXAMINATION: Pleasant female in no distress at the time of my evaluation. The patient's temperature 98.6, pulse 80, respirations 16, blood pressure 121/58, pulse ox 98% on 2 L. Earlier temperature 102.5. HEENT: Normocephalic. NECK: Supple. No JVD. Conjunctivae pink. Sclerae nonicteric. Nostrils are clear. Oral cavity is dry. Neck reveals no JVD. No carotid bruits. No thyromegaly. CHEST: Clear to auscultation with decreased air flow at the bases. Cardiac distant heart sounds S1, S2 with no gallops. Systolic murmur 2/6 left sternal border. ABDOMEN: Soft, protuberant. Bowel sounds are active. Extremities reveal 1+ edema at the ankles. NEUROLOGIC: Awake, alert, oriented x3 with well-coordinated movements. LABORATORY ASSESSMENT: White count was normal at 5.3, hemoglobin 13.5, platelets 133. INR was normal. Patient's electrolytes revealed sodium 141, potassium 3.7, chloride 111, CO2 content 18, anion gap 12, BUN 30, creatinine 1.17, plasma lactic acid was 2.7. Urine had positive nitrite. Specific gravity 1.006. C difficile was negative and influenza negative. Blood culture was reported positive for gram negative bacilli. ASSESSMENT: 1. Sepsis. 2. Gastroenteritis. 3. Dehydration. 4. Chronic kidney disease stage 3. 5. Urinary tract infection. 6. Sjogren syndrome. 7. History of lymphoma in remission. PLAN: The patient at present will be hydrated. Continue present medical regimen. Started on Rocephin to cover the urine and positive blood culture. The patient's general condition is guarded. Prognosis guarded. Condition discussed with the patient. MMODL / IJN: [id number] /
--- NOTE | 2017-11-09 02:36 | PN ---
PROGRESS NOTE CHIEF COMPLAINT: Re-evaluation. HISTORY OF PRESENT ILLNESS: This 77-year-old female was admitted to the hospital with diarrhea. She still has some diarrhea tonight but has improved. Has had no further fever, chills. REVIEW OF SYSTEMS: NEURO: Denies any headaches or dizziness. Psych no anxiety. Cardiac no chest pain, angina or palpitation. Respiratory denies shortness of breath, cough. GI no nausea, vomiting, decreased appetite. No abdominal pain. Diarrhea as mentioned above. no symptoms of dysuria, hematuria. Diarrhea with no blood or mucus in the stool. no symptoms of dysuria, hematuria. Extremities: Some edema. Constitutional: No fever or chills. PHYSICAL EXAMINATION: Temperature 97.8, pulse 81, respiration 19, blood pressure 127/71, pulse ox of 94% on room air. HEENT: Normocephalic. NECK: Supple. No JVD. CHEST: Clear to auscultation with decreased air flow at the bases. Cardiac: Normal S1, S2 with no gallops. Systolic murmur 2/6 left sternal border. ABDOMEN: Soft. No palpable masses. Bowel sounds active. Extremities reveal trace edema. Neurological: Awake, alert, oriented times three with well-coordinated movements. LABORATORY ASSESSMENT: Pending. ASSESSMENT: 1. Sepsis with gram-negative bacteremia. 2. Urinary tract infection. 3. Diarrhea. 4. Dehydration, resolved. 5. Chronic kidney disease, stage III. 6. History of lymphoma in remission. 7. Sjogren syndrome. PLAN: The patient is stable. Continue present medical regimen. Patient's condition discussed with the patient. Prognosis guarded. The patient also does mention a diagnosis of probable urinary tract infection. Continue present medical regimen with Rocephin. Patient's condition is improved compared to yesterday. MMODL / IJN: [id number] /
[2017-11-09] MEDS: HYDROcodone/APAP 5-325MG 1 EACH TAB PO PRN ×2 (05:42→20:48)
[2017-11-09] MEDS: LEVOTHYROXINE 88 MCG TAB PO SCH (05:43)
[2017-11-09] MEDS: SODIUM CHLORIDE 0.9% 1,000 ML IV SCH (05:43)
[2017-11-09 07:20] VITALS: RESP 16
[2017-11-09 07:29] LABS: Basophils % (A) 0 %; Calcium 8.5 mg/dL (8.4-10.2); Eosinophils # (A) 0.3 k/uL (0-0.7); Eosinophils % (A) 2 %; HCT 36.6 % (34.0-46.0); HGB 11.3 gm/dL (11.4-16.0); Hypochromasia Slight; Lymphocytes # (A) 0.5 k/uL (1.0-4.8); Lymphocytes % (A) 3 %; MCH 30.9 pg (25.0-35.0); MCHC 30.9 g/dL (31.0-37.0); MCV 99.9 fL (80.0-100.0); Monocytes # (A) 0.7 k/uL (0-1.0); Monocytes % (A) 5 %; Neutrophils # (A) 12.9 k/uL (1.3-7.7); Neutrophils % (A) 88 %; Platelet Count 103 k/uL (150-450); Potassium 4.9 mmol/L (3.5-5.1); RBC 3.67 m/uL (3.80-5.40); RDW 13.3 % (11.5-15.5); WBC 14.7 k/uL (3.8-10.6)
[2017-11-09] MEDS: SYMBICORT 160-4.5 MCG INHALER INHALATION SCH ×2 (09:08→20:51)
[2017-11-09] MEDS: predniSONE 1 MG TAB PO SCH (09:52)
[2017-11-09] MEDS: APIXABAN 2.5 MG TABLET PO SCH ×2 (09:55→20:46)
[2017-11-09] MEDS: amLODIPine 5 MG TAB PO SCH (09:57)
[2017-11-09] MEDS: PILOCARPINE 5 MG TAB PO SCH ×3 (09:58→20:46)
[2017-11-09] MEDS: cycloSPORINE 0.05% OPHTH 0.4 ML DROPERETTE BOTH EYES SCH ×2 (09:58→20:46)
[2017-11-09] MEDS: cefTRIAXone IN SWFI 1,000 MG/10 ML SYRINGE IVP SCH (12:03)
--- NOTE | 2017-11-09 17:06 | P.PN ---
Subjective Progress Note Date: 11/09/17 Principal diagnosis: diarrhea sepsis this 77-year-old female was admitted to the hospital with severe diarrhea of about 12 hours duration associated with some dehydration and acute on chronic renal failure. The patient's blood culturewithin 12 hours was positive for gram- negat The patient's urine also showing bacteriuria which gram Patient's on IV antibiotic. Her diarrhea has slowed down signifand she feels much better. The patient did have a bowel movement which was loose ye since last night. Denies any abdominal pain, no fever chills or any shortness of breath cough. No dysuria REVIEW OF SYSTEMS: Neuro:[ Denies any headaches dizziness.] Psych: [Denies anxiety depression feels oriented.] Cardiac: [Denies chest pain and angina palpitations.] Respiratory: [Denies shortness of breath cough]. GI: [Denies nausea vomiting or abdominal pain. intermittent hiccups.] :[ Denies dysuria hematuria.] Extremities:[ Denies pain. mild edema.] Skin:[ Intact]. Constitutional: [No fever, chills. Objective - Vital Signs Vital signs: Vital Signs Temp 97.6 F 11/09/17 14:12 Pulse 71 11/09/17 14:12 Resp 16 11/09/17 14:12 BP 132/77 11/09/17 14:12 Pulse Ox 99 11/09/17 14:12 Intake & Output 11/08/17 11/09/17 11/09/17 18:59 06:59 18:59 Intake Total 600 2090 Balance 600 2090 Weight 78.925 kg Intake: IV 600 350 Sodium Chloride 0.9% 1, 600 350 000 ml @ 50 mls/hr IV . Q20H BATSHEVA Rx#:[id number] Intake, IV Titration 400 Amount Sodium Chloride 0.9% 1, 400 000 ml @ 50 mls/hr IV . Q20H BATSHEVA Rx#:[id number] Oral 1340 Other: # Voids 1 3 PHYSICAL EXAMINATION: Cooperative, at present in no acute distress. HEENT: [Neck supple. No JVD.] Chest: [Clear to auscultation decreased airflow left base][normal percussion.] Cardiac: [Normal S1-S2] [no gallops] [no murmur ]. Abdomen:[ Soft ][bowel sounds present.] Extremities: [1+ pitting edema ankles] [no tenderness ] Neurologically: [Awake, alert, oriented with well-coordinated movements.] - Labs CBC & Chem 7: 11/09/17 06:50 11/09/17 06:50 Labs: Abnormal Lab Results - Last 24 Hours (Table) 11/09/17 11/09/17 Range/Units 06:50 06:50 WBC 14.7 H (3.8-10.6) k/uL RBC 3.67 L (3.80-5.40) m/uL Hgb 11.3 L (11.4-16.0) gm/dL MCHC 30.9 L (31.0-37.0) g/dL Plt Count 103 L (150-450) k/uL Neutrophils # 12.9 H (1.3-7.7) k/uL Lymphocytes # 0.5 L (1.0-4.8) k/uL Chloride 115 H (98-107) mmol/L Carbon Dioxide 21 L (22-30) mmol/L BUN 27 H (7-17) mg/dL Creatinine 1.09 H (0.52-1.04) mg/dL Microbiology - Last 24 Hours (Table) 11/07/17 12:38 Blood Culture - Preliminary Blood No Growth after 48 hours 11/07/17 08:00 Blood Culture Gram Stain - Final Blood Blood Culture - Final Klebsiella pneumoniae 11/07/17 09:33 Urine Culture - Final Urine,Voided Klebsiella pneumoniae Assessment and Plan Assessment: ASSESSMENT: 1. [urinary tract infection with sepsis]. 2. [Klebsiella bacteremia]. 3. [history of enteritis]. 4. [acute on chronic renal failure]. 5. [sjogren's syndrome]. 6. [history of lymphoma in remission]. 7. [hypertension]. 8. [history of 1 episode of atrial fibrillation]. PLAN: [continue present medical regimen patient's conditions discussed with patient. Patient's cultures are Klebsiella sensitive to cephalosporins. Patient potentially could be discharged home tomorrowcondition discussed with patient].
[2017-11-09] MEDS: LORazepam 1 MG TAB PO SCH (20:46)
[2017-11-10] MEDS ORDERED: LEVOTHYROXINE 88 MCG TAB PO SCH (06:30)
[2017-11-10] MEDS: SYMBICORT 160-4.5 MCG INHALER INHALATION SCH (07:38)
[2017-11-10 08:46] VITALS: BP 158/84; PULSE 70; TEMP 97.5
[2017-11-10] MEDS: amLODIPine 5 MG TAB PO SCH (08:54)
[2017-11-10] MEDS: predniSONE 1 MG TAB PO SCH (08:55)
[2017-11-10] MEDS: PILOCARPINE 5 MG TAB PO SCH (08:56)
[2017-11-10] MEDS: cycloSPORINE 0.05% OPHTH 0.4 ML DROPERETTE BOTH EYES SCH (08:56)
[2017-11-10] MEDS: APIXABAN 2.5 MG TABLET PO SCH (08:56)
--- NOTE | 2017-11-19 14:40 | P.DS ---
Providers Date of admission: 11/07/17 10:39 Attending physician: Vitaly Chambers Primary care physician: Vitaly Chambers [facility] Course: This 77-year-old female was admitted to the hospital after presenting to the emergency room with complaints of diarrhea. The patient had profuse diarrhea with the night. She was somewhat dehydrated. She was admitted to the hospital. Her lactic acid was elevated patient was felt to be septic. She had urinary tract infection as well. The patient was started on IV antibiotics and IV fluids given oxygen and medications for diarrhea. Patient's diarrhea resolved by the third day. Her urine did grow Klebsiella pneumonia and a blood culture was positive for the same. Patient's has a history of lymphoma which is in remission. She does have Sjogren syndrome. The patient general condition progressively improved and thus she was discharged home on medical therapy. Final diagnosis 1. Urinary tract infection 2. Sepsis secondary to urinary tract infection 3. Diarrhea 4. Dehydration 5. Sjogren syndrome 6. Chronic kidney disease stage III 7. History of atrial fibrillation one episode 8. Anticoagulated status 9. History of phlebitis 10. History of marginal cell lymphoma posttreatment 11. Mild chronic anemia 12. Thrombocytopenia 13. Decreased nutritional status 14. Hypothyroidism Patient Condition at Discharge: Stable Plan - Discharge Summary Discharge Rx Participant: Yes New Discharge Prescriptions: New Acetaminophen Tab [Tylenol] 650 mg PO Q6HR PRN tab PRN Reason: Mild Pain Or Fever > 100.5 Cephalexin [Keflex] 500 mg PO Q8HR #21 cap Continue Levothyroxine Sodium [Synthroid] 88 mcg PO SUTUWETHSA cycloSPORINE 0.05% OPHTH SOLN [Restasis] 1 drop BOTH EYES BID Pilocarpine [Salagen] 5 mg PO TID Levothyroxine Sodium [Synthroid] 132 mcg PO MOFR LORazepam [Ativan] 1 mg PO HS Ranitidine HCl 150 mg PO BID PRN PRN Reason: Heartburn predniSONE 1 mg PO DAILY tab amLODIPine [Norvasc] 5 mg PO DAILY Ferrous Sulfate [Iron (65 MG Elemental)] 325 mg PO BID-W/MEALS #60 tab Albuterol Inhaler [Ventolin Hfa Inhaler] 2 puff INHALATION RT-QID PRN PRN Reason: Shortness Of Breath Apixaban [Eliquis] 2.5 mg PO BID Fluticasone/Salmeterol [Advair Hfa 230-21 Mcg Inhaler] 2 puff INHALATION RT- BID Furosemide [Lasix] 20 mg PO BID Hydroxychloroquine Sulfate [Plaquenil] 200 mg PO BID Discontinued Hydrocodone/Acetaminophen [Hydrocodon-Acetaminophen 5-325] 1 tab PO TID PRN PRN Reason: Pain Amiodarone [Cordarone] 50 mg PO Q48H Discharge Medication List LORazepam [Ativan] 1 mg PO HS 05/26/15 [History] Levothyroxine Sodium [Synthroid] 88 mcg PO SUTUWETHSA 05/26/15 [History] Levothyroxine Sodium [Synthroid] 132 mcg PO MOFR 05/26/15 [History] Pilocarpine [Salagen] 5 mg PO TID 05/26/15 [History] Ranitidine HCl 150 mg PO BID PRN 05/26/15 [History] cycloSPORINE 0.05% OPHTH SOLN [Restasis] 1 drop BOTH EYES BID 05/26/15 [History] predniSONE 1 mg PO DAILY tab 09/04/15 [Rx] amLODIPine [Norvasc] 5 mg PO DAILY 11/13/16 [History] Ferrous Sulfate [Iron (65 MG Elemental)] 325 mg PO BID-W/MEALS #60 tab 11/17/16 [Rx] Albuterol Inhaler [Ventolin Hfa Inhaler] 2 puff INHALATION RT-QID PRN 11/07/17 [ History] Apixaban [Eliquis] 2.5 mg PO BID 11/07/17 [History] Fluticasone/Salmeterol [Advair Hfa 230-21 Mcg Inhaler] 2 puff INHALATION RT-BID 11/07/17 [History] Furosemide [Lasix] 20 mg PO BID 11/07/17 [History] Hydroxychloroquine Sulfate [Plaquenil] 200 mg PO BID 11/07/17 [History] Acetaminophen Tab [Tylenol] 650 mg PO Q6HR PRN tab 11/10/17 [Rx] Cephalexin [Keflex] 500 mg PO Q8HR #21 cap 11/10/17 [Rx] Follow up Appointment(s)/Referral(s): Vitaly Chambers MD [Primary Care Provider] - 11/13/17 2:00 pm Patient Instructions/Handouts: Dehydration (DC) Discharge Disposition: HOME SELF-CARE
== END 2017-11-10 10:44 | disposition home or self-care (01) | DRG 872 ==
LOC: EC 07:53 → 4MS4W 10:39 → 3SUR 17:18
PROVIDERS: ADMIT Internal Medicine; ATTEND Internal Medicine
DX: A41.50 Gram-negative sepsis, unspecified (principal); N17.9 Acute kidney failure, unspecified; E86.0 Dehydration; N39.0 Urinary tract infection, site not specified; M35.00 Sjogren syndrome, unspecified; E03.9 Hypothyroidism, unspecified; I12.9 Hypertensive chronic kidney disease with stage 1 through stage 4 chronic kidney disease, or unspecified chronic kidney disease; K52.9 Noninfective gastroenteritis and colitis, unspecified; N18.3 Chronic kidney disease, stage 3 (moderate); M19.90 Unspecified osteoarthritis, unspecified site; K21.9 Gastro-esophageal reflux disease without esophagitis; M81.0 Age-related osteoporosis without current pathological fracture; Z79.01 Long term (current) use of anticoagulants; Z79.899 Other long term (current) drug therapy; Z79.52 Long term (current) use of systemic steroids; Z91.041 Radiographic dye allergy status; Z85.72 Personal history of non-Hodgkin lymphomas; Z86.718 Personal history of other venous thrombosis and embolism; Z90.49 Acquired absence of other specified parts of digestive tract; Z82.49 Family history of ischemic heart disease and other diseases of the circulatory system
CPT/HCPCS: 36415; 71046; 74018; 80048; 80053; 81001; 83605; 85025; 85610; 85730; 87040; 87077; 87086; 87186; 87324; 87502; 93005; 94640; 96361; 96374; 99285

== ENCOUNTER → 2017-11-23 | Outpatient (CLI) | payer MEDICARE ==
--- NOTE | 2017-11-23 15:20 | PN ---
PROGRESS NOTE DATE OF SERVICE: 11/23/2017 A 77-year-old lady who has been [facility] for treatment of obstructive sleep apnea-hypopnea syndrome. Patient is trying to use her CPAP equipment, but recently she has had bacterial infection in the upper respiratory and possibly sinuses and was in the hospital because of that, and she was not able to use her CPAP equipment at that time, and she has concern that maybe she gets this infection secondary to usage of the CPAP. After the last visit to our office she changed her mask to the small nasal pillows and she likes that mask and she does not have any problem with the usage, equipment with this mask now. I checked her CPAP unit, CPAP pressure is 9 cm of water. Usage is for the last month, 04/16 nights and 02/14 nights for more than 4 hours. Average usage 5.9 hours. Pressure in the machine is 9 cm of water, quite significant leak 34 L/minute. With the usage of machine, apnea-hypopnea index only 2.6, which is totally normal. Patient has severe sleep apnea with original apnea-hypopnea index 53.0. [place] Sleepiness Scale today is 5. MEDICATIONS: Restasis, prednisone, Lorazepam, Amiodarone, ranitidine, hydroxychloroquine, levothyroxine, Eliquis, amlodipine, spironolactone. PHYSICAL EXAM: Patient in no distress. BP 154/88, HR 82, RR 16, height 5, 3-1/2, weight 170, BMI 29.6, temp 97.6, oxygen saturation at room air 100%. OROPHARYNX: Extremely low position of soft palate. ABDOMEN: Obese. Patient has difficulties to walk using a walker because of leg problems. Some deformity of her arms. Neck Supple, no JVD. Thyroid is not palpable. LUNGS Clear to percussion and to auscultation. Good air exchange. No wheezing or rhonchi. HEART S1, S2 regular. No murmurs, gallops, or rubs. NETWORKING ADMINISTRATOR Awake, alert, and oriented X3. Cranial nerves 2 to 7 intact. There is no fasciculation or atrophy. noted. No focal deficits observed. IMPRESSION: 1. Severe obstructive sleep apnea-hypopnea syndrome, normal aspiration by results of reading from the machine while she is using her CPAP equipment. Patient had difficulties to use machine because she had upper respiratory infection. Presently, no problem with the pressure and mask according to patient. 2. Overweight. 3. History of atrial fibrillation. 4. History of lupus erythematosus. 5. History of Sjogren syndrome. 6. Asthma. 7. Hypothyroidism. 8. History of rheumatoid arthritis. 9. History of multiple nodules in the lungs with inflammatory changes by biopsy. 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 PLAN: 1. Patient will continue to use CPAP equipment every night. I will write her a prescription to extend trial period for another 90 days. 2. Prescription for chin strap. 3. Patient will continue to use distilled water for the humidifier. She has to dry all equipment in the morning and wash it as recommended before. 4. Sleep hygiene with regular time in bed for at least 7-1/2 hours[address] Patient [address] Thank you very much for allowing me to participate in the management of your patient. Sincerely, Abhishek Van MD, PhD, FAASM Diplomat of [place] [employer] [place] [employer] Mentally Retarded Teacher of [facility] [place] MMODL / IJN: [id number] /
== END ==
LOC: SLEEP 13:27
PROVIDERS: ATTEND Internal Medicine
DX: G47.33 Obstructive sleep apnea (adult) (pediatric) (principal); E66.3 Overweight; J45.909 Unspecified asthma, uncomplicated; E03.9 Hypothyroidism, unspecified; Z98.890 Other specified postprocedural states; Z87.2 Personal history of diseases of the skin and subcutaneous tissue; Z86.79 Personal history of other diseases of the circulatory system; Z99.89 Dependence on other enabling machines and devices; Z86.2 Personal history of diseases of the blood and blood-forming organs and certain disorders involving the immune mechanism; Z87.39 Personal history of other diseases of the musculoskeletal system and connective tissue; Z79.51 Long term (current) use of inhaled steroids; Z79.899 Other long term (current) drug therapy; Z79.01 Long term (current) use of anticoagulants; Z68.29 Body mass index [BMI] 29.0-29.9, adult

== ENCOUNTER → 2018-03-05 | Outpatient (CLI) | payer MEDICARE ==
--- NOTE | 2018-03-05 10:44 | MM ---
Reason for exam: screening (asymptomatic). Last mammogram was performed 1 year ago. History: Patient is postmenopausal, history of other cancer, and is nulliparous. Benign left mammotome panel of the left breast, December 01, 2006. Physical Findings: A clinical breast exam by your physician is recommended on an annual basis and results should be correlated with mammographic findings. MG Screening Mammo w CAD Bilateral CC and MLO view(s) were taken. Prior study comparison: February 22, 2017, bilateral MG screening mammo w CAD. December 17, 2015, bilateral MG screening mammo w CAD. The breast tissue is heterogeneously dense. This may lower the sensitivity of mammography. Finding: There are typically benign vascular, round calcifications in both breasts. Previous mammotome biopsy in the left breast. There is no discrete abnormality. ASSESSMENT: Benign, BI-RAD 2 RECOMMENDATION: Routine screening mammogram of both breasts in 1 year.
== END | disposition home or self-care (01) ==
LOC: RADMAMWWP 08:03
PROVIDERS: ATTEND Obstetrics & Gynecology
DX: Z12.31 Encounter for screening mammogram for malignant neoplasm of breast (principal)
CPT/HCPCS: 77067

== ENCOUNTER → 2018-09-06 | Outpatient (CLI) | payer MEDICARE ==
--- NOTE | 2018-09-06 16:07 | PN ---
PROGRESS NOTE DATE OF SERVICE: 09/06/2018 This patient is a 78-year-old lady who has been [facility] for treatment of obstructive sleep apnea-hypopnea syndrome. Patient continues to use her CPAP equipment every night for the whole night without any significant problem with the mask fitting or humidification. She is using a nasal pillow mask. [place] Sleepiness Scale today is 6, which is normal. I checked her CPAP unit. CPAP pressure is 7 cm of water. Usage is 100% of the time more than 4 hours, average usage 5.5 hours per night. Leak is 13 L/minute, which is acceptable. Apnea-hypopnea index only 0.9, which is absolutely normal range. MEDICATIONS: 1. Restasis. 2. Prednisone. 3. Lorazepam. 4. Ranitidine. 5. Hydroxychloroquine. 6. Levothyroxine. 7. Eliquis. 8. Amlodipine. 9. Spironolactone. PHYSICAL EXAMINATION: GENERAL: A pleasant patient in no distress. VITAL SIGNS: BP 167/79, HR 78, RR 16, height 5 feet 3 inches, weight 161, which is 9 pounds less than during the previous visit about 9 months ago. Body mass index 28.5, temperature 97.7, oxygen saturation at room air 95%. HEENT: PERRLA, EOMI. Evaluation of oropharynx showed tongue protrudes midline. Extremely low position of soft palate. NECK: Supple. No JVD. Thyroid is not palpable. LUNGS: Clear to percussion and to auscultation. Good air exchange. No wheezing or rhonchi. HEART: S1, S2 regular. No murmurs, gallops or rubs. ABDOMEN: Slightly obese. EXTREMITIES: Arms have possibly some ulnar deformity. CUSTOMS MANAGER: Awake, alert, and oriented X3. Cranial nerves 2 to 7 intact. There is no fasciculation or atrophy. noted. No focal deficits observed. IMPRESSION: 1. Obstructive sleep apnea-hypopnea syndrome, fully under control with CPAP. The patient demonstrated 100% compliance with treatment, benefitting from treatment. 2. History of atrial fibrillation, at present by auscultation regular rhythm. 3. History of lupus erythematosus. 4. History of Sjogren's syndrome. 5. History of asthma. 6. Hypothyroidism. 7. History of rheumatoid arthritis. 8. Status post left hip lymphoma, treated by chemotherapy. PLAN: 1. Patient will continue to use CPAP equipment every night. 2. Will maintain prescription for all necessary CPAP supplies, including nasal pillow masks, tube, filters. 3. Watching weight. 4. Sleep hygiene with regular time bed for at least 8 hours. 5. No driving if feeling any sleepiness. Thank you very much for allowing me to participate in the management of your patient. Sincerely, Abhishek Van MD, PhD, FAASM Diplomat of [place] [employer] [place] [employer] Oral And Maxillofacial Surgery Resident of [facility] [place] MMODL / IJN: [id number] /
== END ==
LOC: SLEEP 14:47
PROVIDERS: ATTEND Internal Medicine
DX: G47.33 Obstructive sleep apnea (adult) (pediatric) (principal); I48.91 Unspecified atrial fibrillation; L93.0 Discoid lupus erythematosus; M35.00 Sjogren syndrome, unspecified; J45.909 Unspecified asthma, uncomplicated; E03.9 Hypothyroidism, unspecified; M06.9 Rheumatoid arthritis, unspecified; Z92.21 Personal history of antineoplastic chemotherapy; Z85.72 Personal history of non-Hodgkin lymphomas; Z79.899 Other long term (current) drug therapy; Z79.01 Long term (current) use of anticoagulants; Z79.51 Long term (current) use of inhaled steroids; Z99.89 Dependence on other enabling machines and devices

== ENCOUNTER 2018-09-15 22:40 | Emergency (ER) | payer MEDICARE ==
[2018-09-15 22:46] VITALS: PULSE 72; RESP 16; TEMP 98
--- NOTE | 2018-09-15 23:54 | XR ---
EXAMINATION TYPE: XR elbow limited LT DATE OF EXAM: 09/15/2018 COMPARISON: NONE HISTORY: Pain after a fall TECHNIQUE: 2 views FINDINGS: There is supracondylar fracture of the distal humerus. There is comminution. There is no di slocation. There is some anterior displacement of the major fragment which involves the medial dale l condyle. IMPRESSION: There is an oblique supracondylar fracture of the distal humerus with comminution.
[2018-09-16] MEDS ORDERED: MORPHINE SULFATE 4 MG/ML SYRINGE IVP STA (00:19)
[2018-09-16 00:49] VITALS: BP 173/88
--- NOTE | 2018-09-16 01:14 | ED ---
Fall HPI - General Chief Complaint: Fall Stated Complaint: FALL Time Seen by Provider: 09/15/18 22:44 Source: patient Mode of arrival: EMS - History of Present Illness Initial Comments: Charo is a pleasant 78-year-old female presents to the emergency department today via EMS for evaluation of left elbow pain after a fall at home. Patient reports that she was in her laundry room, she noticed a dryer she on the floor and when she stepped and bent forward to pick it up she believes she stepped on the dryer sheet which caused her to lose her balance and she fell directly onto her left side hitting her left elbow. Patient reports she had immediate pain in her left elbow. She did not strike her head or neck she did not lose consciousness she did not have pain elsewhere. She did have her cell phone in her pocket so she called 911 for transfer to the hospital. EMS was able to assist her to her feet and she was ambulatory. Patient has no history of fracture or surgery to this arm in the past, she has seen orthopedic surgery in the past for her knees. Patient does take L Raman daily. - Related Data Home Medications Medication Instructions Recorded Confirmed Levothyroxine Sodium [Synthroid] 88 mcg PO SUTUTHSA 05/26/15 11/07/17 Levothyroxine Sodium [Synthroid] 132 mcg PO MOWEFR 05/26/15 09/15/18 Pilocarpine [Salagen] 5 mg PO TID 05/26/15 09/15/18 Ranitidine HCl 150 mg PO BID PRN 05/26/15 09/15/18 cycloSPORINE 0.05% OPHTH SOLN 1 drop BOTH EYES BID 05/26/15 09/15/18 [Restasis] amLODIPine [Norvasc] 5 mg PO DAILY 11/13/16 09/15/18 Albuterol Inhaler [Ventolin Hfa 2 puff INHALATION RT-QID PRN 11/07/17 09/15/18 Inhaler] Hydroxychloroquine Sulfate 200 mg PO BID 11/07/17 09/15/18 [Plaquenil] Apixaban [Eliquis] 5 mg PO BID 09/15/18 09/15/18 HYDROcodone/APAP 5-325MG [[place] 1 tab PO DAILY PRN 09/15/18 09/15/18 5-325] Mirabegron [Myrbetriq] 25 mg PO DAILY 09/15/18 09/15/18 Spironolactone [Aldactone] 12.5 mg PO DAILY 09/15/18 09/15/18 Previous Rx's Medication Instructions Recorded predniSONE 1 mg PO DAILY tab 09/04/15 Ferrous Sulfate [Iron (65 MG 325 mg PO BID-W/MEALS #60 tab 11/17/16 Elemental)] Allergies Allergy/AdvReac Type Severity Reaction Status Date / Time Iodinated Contrast- Oral and Allergy Rash/Hives Verified 09/15/18 23:35 IV Dye [Iodinated Contrast Media - IV Dye] Review of Systems ROS Statement: Those systems with pertinent positive or pertinent negative responses have been documented in the HPI. ROS Other: All systems not noted in ROS Statement are negative. Past Medical History Past Medical History: Atrial Fibrillation, Asthma, Cancer, Deep Vein Thrombosis (DVT), GERD/Reflux, Osteoarthritis (OA), Renal Disease, Rheumatoid Arthritis (RA ), Thyroid Disorder Additional Past Medical History / Comment(s): Autoimmune hepatits (1994), sjogrens, lupus, 2009 DVT R calf, recurrent R lower leg ulcers-seen in [facility] and healed at this time, TOMAS with device used in past then had some bacterial infections and stopped using but is now in process of possible getting another device, osteoporosis, non-Hodgkin's B lymphoma - left thigh January 2015 status post 2 chemo treatments, chronic kidney disease stage III, UTI with sepsis, chronic anemia, hypothyroid, stress incontinence. History of Any Multi-Drug Resistant Organisms: None Reported Past Surgical History: Appendectomy, Breast Surgery, Cholecystectomy, Tonsillectomy Additional Past Surgical History / Comment(s): L breast benign biopsy, paola cataracts, biopsy left thigh mass, BMA, liver bx, lip bx, wound right lower extremity [facility] status post multiple debridements Past Anesthesia/Blood Transfusion Reactions: No Reported Reaction Past Psychological History: No Psychological Hx Reported Smoking Status: Never smoker - Past Family History Sister(s) Family Medical History: Osteoarthritis (OA) Additional Family Medical History / Comment(s): Severe arthritis. Mother Family Medical History: Osteoarthritis (OA) Additional Family Medical History / Comment(s): Severe arthritis. General Exam - General Exam Comments Initial Comments: Physical Exam GENERAL: Patient is well-developed and well-nourished. Patient is nontoxic and well-hydrated and is in no distress - patient received fentanyl and route to the hospital which resolved her pain HENT: Normocephalic, Atraumatic. EYES: PERRL, EOMI PULMONARY: Unlabored respirations. No audible rales rhonchi or wheezing was noted. CARDIOVASCULAR: There is a regular rate and rhythm without any murmurs gallops or rubs. ABDOMEN: Soft and nontender with normal bowel sounds. SKIN: Skin tear to left forearm, approximately 2 segmenters by 4 cm, skin is contracted : Deferred NEUROLOGIC: Patient is alert and oriented x3. Moving all extremities spontaneously Normal sensation of the left arm MUSCULOSKELETAL: Decreased range of motion of left elbow secondary to pain. Full range of motion of the fingers, able flex and extend the wrist, no pronation or supination due to pain Full range of motion of the left hip and knee without pain PSYCHIATRIC: Normal psychiatric evaluation. Limitations: no limitations Limitations: no limitations Course Vital Signs 09/15/18 09/16/18 22:41 00:49 Temperature 98.0 F Pulse Rate 72 72 Respiratory 16 16 Rate Blood Pressure 192/87 173/88 O2 Sat by Pulse 96 98 Oximetry Procedures - Orthopedic Splinting/Casting Injury #1 Side: left Upper Extremity Injury Location: elbow Upper Extremity Immobilizer: posterior splint Medical Decision Making - Medical Decision Making Patient was seen and evaluated, history is obtained from the patient and signed patient with a mechanical trip and fall onto her left side landing on her left elbow presenting with left elbow pain. Range of motion is limited by pain. X-ray was obtained X-ray reveals a comminuted supracondylar fracture patient care was discussed with orthopedics sap basis consultant who evaluated the patient x-ray and recommended transfer to a facility with orthopedic trauma bay lability Patient care was discussed with her Charlene orthopedic surgeon at [facility] who agrees with plan for transfer, patient care was then passed with Dr. Hernández at [facility] emergency Department who accepts the transfer. Patient family were updated on plan. Patient's arm was placed in a posterior splint for comfort. Disposition Clinical Impression: Supracondylar fracture of humerus, Fall at home, Skin tear Disposition: OTHER INSTITUTION NOT DEFINED Referrals: Vitaly Chambers MD [Primary Care Provider] - 1-2 days - Out of Hospital Transfer - Req. Specs Out of Hospital Transfer - Requested Specifics: Other Emergency Center ([facility])
[2018-09-16] MEDS ORDERED: DIPH,PERTUS(ACELL)TETVAC-LF 0.5 ML VIAL IM ONE (01:20)
== END 2018-09-16 01:00 | disposition other institution (70) ==
LOC: EC 22:40
DX: S42.422A Displaced comminuted supracondylar fracture without intercondylar fracture of left humerus, initial encounter for closed fracture (principal); S51.812A Laceration without foreign body of left forearm, initial encounter; I48.91 Unspecified atrial fibrillation; J45.909 Unspecified asthma, uncomplicated; M19.90 Unspecified osteoarthritis, unspecified site; M06.9 Rheumatoid arthritis, unspecified; E03.9 Hypothyroidism, unspecified; N18.3 Chronic kidney disease, stage 3 (moderate); M35.00 Sjogren syndrome, unspecified; Z86.718 Personal history of other venous thrombosis and embolism; Z85.72 Personal history of non-Hodgkin lymphomas; Z79.01 Long term (current) use of anticoagulants; Z79.899 Other long term (current) drug therapy; Z91.041 Radiographic dye allergy status; W01.0XXA Fall on same level from slipping, tripping and stumbling without subsequent striking against object, initial encounter; Y92.008 Other place in unspecified non-institutional (private) residence as the place of occurrence of the external cause
CPT/HCPCS: 73070; 99285; 29105; 96374; J2270

== ENCOUNTER → 2018-12-13 | Outpatient (CLI) | payer MEDICARE ==
--- NOTE | 2018-12-13 11:49 | SFUN ---
SLEEP CENTER FOLLOW UP NOTE DATE OF SERVICE: 12/13/2018 A 78-year-old lady who has been followed in the Sleep Center for treatment of obstructive sleep apnea-hypopnea syndrome. Patient recently had a fracture of her left elbow and because she was not able to use her arm, she was not able to put mask on. Before the fracture she was able to use machine well without any problems. [place] Sleepiness Scale today is 4. I checked her CPAP unit for the time when she used before fracture, she used it average 5.3 hours per night, pressure 7 cm of water. Leak is 14 L/minute, which is normal range. Apnea-hypopnea index only 1.0, which is normal. MEDICATIONS: Restasis, prednisone, lorazepam, ranitidine, hydrochloroquine, levothyroxine, Eliquis, amlodipine, spironolactone. PHYSICAL EXAM: lady without distress. BP 124/78, HR 60, RR 16, height 5 feet, weight 158, body mass index 27.9, temperature 98.2, oxygen saturation at room air 97%. OROPHARYNX: Extremely low position of soft palate. HEART: S1, S2, irregular. EXTREMITIES: 1+ ankle edema. Neck Supple, no JVD. Thyroid is not palpable. LUNGS Clear to percussion and to auscultation. Good air exchange. No wheezing or rhonchi. ABDOMEN Soft and nontender. Bowel sounds are present. No organomegaly appreciated. SCHOLASTIC APTITUDE TEST GRADER Awake, alert, and oriented X3. Cranial nerves 2 to 7 intact. There is no fasciculation or atrophy. noted. No focal deficits observed. IMPRESSION: 1. Obstructive sleep apnea-hypopnea syndrome. 2. History of atrial fibrillation, some irregularities during auscultation possibly still present. 3. History of lupus erythematosus. 4. History of Sjogren's syndrome. 5. History of asthma. 6. Status post fracture of left elbow 3 months ago. 7. Hypothyroidism. 8. History of rheumatoid arthritis. 9. Status post left hip lymphoma, status post chemotherapy treatment. PLAN: 1. Patient will restart using CPAP every night for the whole night with the same pressure. 2. Sleep hygiene at the time in bed for 7-1/2 hours. 3. Precautions related to driving. No driving if feeling sleepiness. 4. Will maintain all necessary prescription for the CPAP supplies including nasal pillow, mask, tube, filters. Thank you very much for allowing me to participate in the management of your patient. Sincerely, Abhishek Van MD, PhD, FAASM Diplomat of [place] [employer] [place] [employer] Ham Sawyer of [facility] [place] BRANT / YOGI: [id number] /
== END | disposition home or self-care (01) ==
LOC: SLEEP 08:14
PROVIDERS: ATTEND Internal Medicine
DX: G47.33 Obstructive sleep apnea (adult) (pediatric) (principal); E03.9 Hypothyroidism, unspecified; I48.91 Unspecified atrial fibrillation; Z86.2 Personal history of diseases of the blood and blood-forming organs and certain disorders involving the immune mechanism; Z87.09 Personal history of other diseases of the respiratory system; Z87.81 Personal history of (healed) traumatic fracture; Z85.72 Personal history of non-Hodgkin lymphomas; Z87.39 Personal history of other diseases of the musculoskeletal system and connective tissue; Z92.21 Personal history of antineoplastic chemotherapy; Z79.01 Long term (current) use of anticoagulants; Z79.52 Long term (current) use of systemic steroids; Z79.899 Other long term (current) drug therapy

== ENCOUNTER → 2019-03-13 | Outpatient (CLI) | payer MEDICARE ==
--- NOTE | 2019-03-14 13:25 | MM ---
Reason for exam: screening (asymptomatic). Last mammogram was performed 1 year ago. History: Patient is postmenopausal, history of other cancer, and is nulliparous. Benign left mammotome panel of the left breast, December 01, 2006. Physical Findings: A clinical breast exam by your physician is recommended on an annual basis and results should be correlated with mammographic findings. MG 3D Screening Mammo W/Cad Bilateral CC and MLO view(s) were taken. Prior study comparison: March 05, 2018, bilateral MG screening mammo w CAD. February 22, 2017, bilateral MG screening mammo w CAD. The breast tissue is heterogeneously dense. This may lower the sensitivity of mammography. Benign appearing bilateral calcifications. No suspicious abnormality. No significant changes when compared with prior studies. ASSESSMENT: Benign, BI-RAD 2 RECOMMENDATION: Routine screening mammogram of both breasts in 1 year.
== END | disposition home or self-care (01) ==
LOC: RADMAMWWP 09:31
PROVIDERS: ATTEND Obstetrics & Gynecology
DX: Z12.31 Encounter for screening mammogram for malignant neoplasm of breast (principal)
CPT/HCPCS: 77063; 77067

== ENCOUNTER 2019-09-16 11:24 | Emergency (ER) | payer MEDICARE ==
[2019-09-16] MEDS ORDERED: MORPHINE SULFATE 4 MG/ML SYRINGE IM STA (13:34)
--- NOTE | 2019-09-16 14:09 | XR ---
EXAMINATION TYPE: XR knee complete RT DATE OF EXAM: 09/16/2019 CLINICAL HISTORY: Right knee pain and swelling without known injury. TECHNIQUE: Three views of the right knee are obtained. COMPARISON: None. FINDINGS: There is no acute fracture/dislocation evident in right knee. The tri-compartment joint s paces appear aligned however there is severe narrowing of the medial compartment with near bone-on-jazzy ne articulation and opposing surface sclerosis. Tricompartmental small osteophytes are also seen. Albert rowing of the patellofemoral joint space is noted. Mild suprapatellar joint effusion. Minimal atheros clerosis. The overlying soft tissue appears unremarkable. IMPRESSION: 1. No acute fracture or dislocation in the right knee. 2. Overall moderate tricompartmental arthropathy most severe in the medial compartment with near bone -on-bone articulation. 3. Small suprapatellar joint effusion.
--- NOTE | 2019-09-16 14:48 | ED ---
General Adult HPI - General Chief complaint: Extremity Problem,Nontraumatic Stated complaint: swelling/pain on knee Time Seen by Provider: 09/16/19 12:38 Source: patient Mode of arrival: wheelchair Limitations: no limitations - History of Present Illness Initial comments: 79-year-old female patient presents to the emergency department today for evaluation of right leg pain and knee swelling. Patient states symptoms started a few days ago. Patient states her pain has been progressively worsening to the point where she is unable to ambulate. Patient is reporting swelling surrounding the right knee. Denies any redness, fever, or chills. States that she has had DVT to the area before. She is currently taking Eliquis. Patient is states that she does also have severe arthritis and has had to have the knee drained in the past. She denies any injury. Patient denies any recent rash, shortness breath, chest pain, abdominal pain, nausea, vomiting, diarrhea, constipation, back pain, numbness, tingling, dizziness, weakness, hematuria, dysuria, urinary urgency, urinary frequency, headache, visual changes, or any other complaints. - Related Data Home Medications Medication Instructions Recorded Confirmed Levothyroxine Sodium [Synthroid] 88 mcg PO SUTUTHSA 05/26/15 11/07/17 Levothyroxine Sodium [Synthroid] 132 mcg PO MOWEFR 05/26/15 09/15/18 Pilocarpine [Salagen] 5 mg PO TID 05/26/15 09/15/18 Ranitidine HCl 150 mg PO BID PRN 05/26/15 09/15/18 cycloSPORINE 0.05% OPHTH SOLN 1 drop BOTH EYES BID 05/26/15 09/15/18 [Restasis] amLODIPine [Norvasc] 5 mg PO DAILY 11/13/16 09/15/18 Albuterol Inhaler [Ventolin Hfa 2 puff INHALATION RT-QID PRN 11/07/17 09/15/18 Inhaler] Hydroxychloroquine Sulfate 200 mg PO BID 11/07/17 09/15/18 [Plaquenil] Apixaban [Eliquis] 5 mg PO BID 09/15/18 09/15/18 HYDROcodone/APAP 5-325MG [Ramey 1 tab PO DAILY PRN 09/15/18 09/15/18 5-325] Mirabegron [Myrbetriq] 25 mg PO DAILY 09/15/18 09/15/18 Spironolactone [Aldactone] 12.5 mg PO DAILY 09/15/18 09/15/18 Previous Rx's Medication Instructions Recorded predniSONE 1 mg PO DAILY tab 09/04/15 Ferrous Sulfate [Iron (65 MG 325 mg PO BID-W/MEALS #60 tab 11/17/16 Elemental)] Allergies Allergy/AdvReac Type Severity Reaction Status Date / Time Iodinated Contrast Media Allergy Rash/Hives Verified 09/16/19 12:26 [Iodinated Contrast Media - IV Dye] Review of Systems ROS Statement: Those systems with pertinent positive or pertinent negative responses have been documented in the HPI. ROS Other: All systems not noted in ROS Statement are negative. 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 History of Any Multi-Drug Resistant Organisms: None Reported Past Surgical History: Appendectomy, Breast Surgery, Cholecystectomy, Tonsillectomy Additional Past Surgical History / Comment(s): L breast benign biopsy, paola cataracts, biopsy left thigh mass, BMA, liver bx, lip bx, wound right lower extremity [facility] status post multiple debridements Past Anesthesia/Blood Transfusion Reactions: No Reported Reaction Past Psychological History: No Psychological Hx Reported Smoking Status: Never smoker Past Alcohol Use History: None Reported Past Drug Use History: None Reported - Past Family History Sister(s) Family Medical History: Osteoarthritis (OA) Additional Family Medical History / Comment(s): Severe arthritis. Mother Family Medical History: Osteoarthritis (OA) Additional Family Medical History / Comment(s): Severe arthritis. General Exam Limitations: no limitations General appearance: alert, in no apparent distress, other (This is a well- developed, well-nourished elderly female patient in no acute distress. Vital signs upon presentation are temperature 97.8F, pulse 53, respirations 17, blood pressure 172/79, pulse ox 98% on room air.) Eye exam: Present: normal appearance, PERRL, EOMI. Absent: scleral icterus, conjunctival injection, periorbital swelling ENT exam: Present: normal exam, normal oropharynx, mucous membranes moist Respiratory exam: Present: normal lung sounds bilaterally. Absent: respiratory distress, wheezes, rales, rhonchi, stridor Cardiovascular Exam: Present: regular rate, normal rhythm, normal heart sounds. Absent: systolic murmur, diastolic murmur, rubs, gallop, clicks Extremities exam: Present: full ROM, normal capillary refill, other (There is soft tissue swelling sign the right knee. No calf tenderness. No erythema. Pedal and posttibial pulses 2+ and equal bilaterally.). Absent: tenderness, pedal edema, joint swelling, calf tenderness Neurological exam: Present: alert, oriented X3, CN II-XII intact Psychiatric exam: Present: normal affect, normal mood Skin exam: Present: warm, dry, intact, normal color. Absent: rash Course Vital Signs 09/16/19 12:21 Temperature 97.8 F Pulse Rate 53 L Respiratory 17 Rate Blood Pressure 172/79 O2 Sat by Pulse 98 Oximetry Medical Decision Making - Medical Decision Making 79-year-old female patient presents to emergency department today for evaluation of right knee pain and swelling. Physical examination does reveal mild soft tissue swelling surrounding the right knee. No erythema. No calf tenderness. History of DVTs I did perform ultrasound of the right lower extremity, this was negative for DVT however did show evidence for a complex cystic structure in the popliteal space. X-ray of the knee showed a small suprapatellar joint effusion and [id number] articulation. I did discuss the findings and results with the patient. Post Sheldon wrap for comfort and support. She is instructed to follow up orthopedics for further evaluation of her cyst. Return parameters were discussed in detail. She verbalizes understanding and agrees with this plan. - Radiology Data Radiology results: report reviewed, image reviewed Ultrasound of the right lower extremity is obtained. Report was reviewed in its entirety. Impression by Dr. Nguyen shows no sonographic evidence of deep venous thrombosis within the right lower extremity. Complex popliteal cystic structure. X-ray of the right knee is obtained. Report is reviewed in its entirety. Impression by Dr. Nguyen shows no acute fracture dislocation of the right knee. Overall moderate tricompartmental arthropathy most severe in the medial comp artment with near [id number] articulation. Small suprapatellar joint effusion. Disposition Clinical Impression: Synovial cyst of popliteal space [Mello], right knee Disposition: HOME SELF-CARE Condition: Good Instructions (If sedation given, give patient instructions): Bakers Cyst (ED) Additional Instructions: Use Sheldon wrap for comfort and support. Take home medication as needed for pain. Follow-up with Dr. Alberts for reevaluation as soon as possible. Return to the emergency department immediately for any new, worsening, or concerning symptoms. Is patient prescribed a controlled substance at d/c from ED?: No Referrals: Vitaly Chambers MD [Primary Care Provider] - 1-2 days Leobardo Tello MD [STAFF PHYSICIAN] - 1-2 days Time of Disposition: 14:54
--- NOTE | 2019-09-16 14:52 | US ---
EXAMINATION TYPE: US venous doppler duplex LE RT DATE OF EXAM: 09/16/2019 2:33 PM COMPARISON: CLINICAL HISTORY: Right leg swelling/pain. Right knee pain. On blood thinners. SIDE PERFORMED: Right TECHNIQUE: The lower extremity deep venous system is examined utilizing real time linear array sonog pau with graded compression, doppler sonography and color-flow sonography. VESSELS IMAGED: External Iliac Vein (EIV) Common Femoral Vein Deep Femoral Vein Greater Saphenous Vein * Femoral Vein Popliteal Vein Small Saphenous Vein * Proximal Calf Veins (* superficial vessels) Grayscale, color doppler, spectral doppler imaging performed of the deep veins of the right lower ext remity. There is normal flow, compressibility, vascular waveforms. Right Leg: Negative for DVT. Fluid collection with internal echoes visualized posterior right knee- 5.1 x 3.0 x 1.7 cm. IMPRESSION: 1. No sonographic evidence of deep venous thrombosis within the right lower extremity. 2. Complex popliteal cystic structure.
[2019-09-16 15:34] VITALS: BP 192/81; PULSE 70; RESP 18; TEMP 98
== END 2019-09-16 15:34 | disposition home or self-care (01) ==
LOC: EC 11:24
DX: M71.21 Synovial cyst of popliteal space [Baker], right knee (principal); M25.461 Effusion, right knee; I48.91 Unspecified atrial fibrillation; J45.909 Unspecified asthma, uncomplicated; K21.9 Gastro-esophageal reflux disease without esophagitis; M19.90 Unspecified osteoarthritis, unspecified site; M06.9 Rheumatoid arthritis, unspecified; N18.3 Chronic kidney disease, stage 3 (moderate); M32.9 Systemic lupus erythematosus, unspecified; M35.00 Sjogren syndrome, unspecified; E03.9 Hypothyroidism, unspecified; Z91.041 Radiographic dye allergy status; Z79.01 Long term (current) use of anticoagulants; Z79.890 Hormone replacement therapy; Z79.891 Long term (current) use of opiate analgesic; Z79.899 Other long term (current) drug therapy; Z86.718 Personal history of other venous thrombosis and embolism; Z85.72 Personal history of non-Hodgkin lymphomas; Z92.21 Personal history of antineoplastic chemotherapy; Z87.440 Personal history of urinary (tract) infections; Z87.448 Personal history of other diseases of urinary system; Z82.61 Family history of arthritis
CPT/HCPCS: 73562; 93971; 99284; 96372; J2270

== ENCOUNTER → 2019-11-21 | Outpatient (CLI) | payer MEDICARE ==
--- NOTE | 2019-11-21 11:38 | SFUN ---
SLEEP CENTER FOLLOW UP NOTE DATE OF SERVICE: 11/21/2019 This 79-year-old lady had been followed in Sleep Center for treatment of obstructive sleep apnea-hypopnea syndrome. The patient continued to use her CPAP equipment, except for the last period of time when she had flu and was not able to use her machine. She also has some problems with the holes, need to replace her supplies. [place] Sleepiness Scale today is 2, which is normal. I checked her CPAP unit. CPAP pressure 7 cm of water. Usage for the last 6 months, 116 nights more than 4 hours with average usage 8.8 hours per night. Leak is 13 L/minutes, which is acceptable. Apnea-hypopnea index is only 1.2, which is normal. MEDICATIONS: Restasis, prednisone, lorazepam, hydroxychloroquine, levothyroxine, Eliquis, spironolactone. PHYSICAL EXAMINATION: During physical exam, patient in no distress. VITAL SIGNS: BP 166/73, HR 84, RR 12, height 5 feet and 5 inches, weight 155, temperature 98.0, oxygen saturation at room air 96%. HEENT: PERRLA, EOMI. Oropharynx extremely low soft palate. Patient is on wheelchair because of recent left knee fracture. IMPRESSION: 1. Obstructive sleep apnea-hypopnea syndrome. 2. History of atrial fibrillation. No irregularities of heart rate during physical exam. 3. History of lupus erythematosus. 4. Status post recent left knee fracture. 5. History of Sjogren syndrome. 6. History of asthma. 7. Hypothyroidism. 8. History of rheumatoid arthritis. 9. Status post left hip lymphoma, status post chemotherapy treatment. PLAN: 1. Prescription for all necessary CPAP supplies including nasal pillow mask, heated tube, filters. 2. The patient will continue to use her CPAP equipment every night for the whole night. 3. Precautions related to driving. No driving if feeling sleepiness. 4. Follow-up visit in 6 months. Thank you very much for allowing me to participate in management of your patient. Sincerely, Abhishek Van MD, PhD, FAASM Diplomat of [place] [employer] [place] [employer] Gliding Instructor of [facility] [place] MMODL / IJN: [id number] /
== END ==
LOC: SLEEP 10:39
PROVIDERS: ATTEND Internal Medicine
DX: G47.33 Obstructive sleep apnea (adult) (pediatric) (principal); E03.9 Hypothyroidism, unspecified; Z86.79 Personal history of other diseases of the circulatory system; Z87.39 Personal history of other diseases of the musculoskeletal system and connective tissue; Z87.09 Personal history of other diseases of the respiratory system; Z96.652 Presence of left artificial knee joint; Z86.2 Personal history of diseases of the blood and blood-forming organs and certain disorders involving the immune mechanism; Z85.79 Personal history of other malignant neoplasms of lymphoid, hematopoietic and related tissues; Z92.21 Personal history of antineoplastic chemotherapy; Z79.01 Long term (current) use of anticoagulants; Z79.899 Other long term (current) drug therapy

== ENCOUNTER → 2019-11-28 | Outpatient (CLI) | payer MEDICARE ==
--- NOTE | 2019-11-28 13:55 | CT ---
EXAMINATION TYPE: CT knee LT wo con DATE OF EXAM: 11/28/2019 COMPARISON: 09/16/2019 HISTORY: Knee injury pain CT DLP: 464.2 mGycm Automated exposure control for dose reduction was used. FINDINGS: There is a severe narrowing of the medial compartment knee joint. There is spurring involving both co mpartments. Remodeling of the tibial surface of the medial compartment of the knee joint. Suspect car tilaginous loss. Hypertrophic change and narrowing of the patellofemoral joint with large spur extending inferiorly. T here is a small the moderate amount of fluid in the suprapatellar bursa. There is a degree of muscular atrophy noted. Appears to be a cyst within the posterior popliteal tess a measuring 2 x 1.5 cm. No evidence of acute fracture or dislocation. Heterotopic ossification along the superior lateral mar gin of the patella. Atherosclerotic change of the vasculature noted. Subcutaneous varicosities seen. IMPRESSION: SEVERE OSTEOARTHRITIS.
== END | disposition home or self-care (01) ==
LOC: RADCTMAIN 13:17
PROVIDERS: ATTEND Orthopaedic Surgery
DX: M17.12 Unilateral primary osteoarthritis, left knee (principal); M70.52 Other bursitis of knee, left knee

== ENCOUNTER 2020-04-10 12:56 | Inpatient (IN) | payer MEDICARE ==
[2020-04-10] MEDS ORDERED: MORPHINE SULFATE 4 MG/ML SYRINGE IV STA (14:04)
[2020-04-10] MEDS ORDERED: DIPH,PERTUS(ACELL)TETVAC-LF 0.5 ML VIAL IM ONE (14:06)
[2020-04-10] MEDS ORDERED: AMPICILLIN-SULBACTAM 3 GM in SODIUM CHLORIDE 0.9% 100 ML IVPB STA (14:06)
[2020-04-10] MEDS ORDERED: SODIUM CHLORIDE 0.9% 1,000 ML IV ONE ×2 (14:14→20:17)
[2020-04-10 14:48] LABS: Basophils % (A) 0 %; Eosinophils # (A) 0.1 k/uL (0-0.7); Eosinophils % (A) 1 %; HCT 42.6 % (34.0-46.0); HGB 13.4 gm/dL (11.4-16.0); Lymphocytes # (A) 0.3 k/uL (1.0-4.8); Lymphocytes % (A) 2 %; MCH 29.6 pg (25.0-35.0); MCHC 31.4 g/dL (31.0-37.0); MCV 94.1 fL (80.0-100.0); Mean Platelet Volume 7.9; Monocytes # (A) 0.7 k/uL (0-1.0); Monocytes % (A) 5 %; Neutrophils # (A) 12.2 k/uL (1.3-7.7); Neutrophils % (A) 91 %; Platelet Count 175 k/uL (150-450); RBC 4.53 m/uL (3.80-5.40); RDW 13.9 % (11.5-15.5); WBC 13.3 k/uL (3.8-10.6)
[2020-04-10 14:56] LABS: Partial Thromboplastin Time 23.6 sec (22.0-30.0); Prothrombin Time 10.4 sec (9.0-12.0)
[2020-04-10 15:01] LABS: Albumin 4.2 g/dL (3.5-5.0); Calcium 9.4 mg/dL (8.4-10.2); Potassium 5.4 mmol/L (3.5-5.1); Total Bilirubin 0.9 mg/dL (0.2-1.3)
--- NOTE | 2020-04-10 15:17 | ED ---
Animal Bite HPI - General Chief Complaint: Animal Bite Stated Complaint: cat bite rt arm Time Seen by Provider: 04/10/20 13:43 Source: patient, RN notes reviewed, old records reviewed Mode of arrival: wheelchair Limitations: no limitations - History of Present Illness Initial Comments: Patient is a 79-year-old female who presents emergency department today for evaluation for complaints of Bite to the right forearm. Patient reports that her cat bit her in the middle the night after the cat heard a an outdoor cat at the window. Patient reports that her cat Became scared and startled and when she shoed the outdoor cat away at her at the window. She complains of significant pain and swelling over the right forearm. She reports pain with range of motion of her fingers. Patient reports that she has a history of autoimmune diseases. Patient is L Raman. - Related Data Home Medications Medication Instructions Recorded Confirmed Levothyroxine Sodium [Synthroid] 88 mcg PO SUTUTHSA 05/26/15 11/07/17 Levothyroxine Sodium [Synthroid] 132 mcg PO MOWEFR 05/26/15 09/15/18 Pilocarpine [[place]] 5 mg PO TID 05/26/15 09/15/18 Ranitidine HCl 150 mg PO BID PRN 05/26/15 09/15/18 cycloSPORINE 0.05% OPHTH SOLN 1 drop BOTH EYES BID 05/26/15 09/15/18 [Restasis] amLODIPine [Norvasc] 5 mg PO DAILY 11/13/16 09/15/18 Albuterol Inhaler (Mhu) [Ventolin 2 puff INHALATION RT-QID PRN 11/07/17 09/15/18 Hfa Inhaler (Mhu)] Hydroxychloroquine Sulfate 200 mg PO BID 11/07/17 09/15/18 [Plaquenil] Apixaban [Eliquis] 5 mg PO BID 09/15/18 09/15/18 HYDROcodone/APAP 5-325MG [[place] 1 tab PO DAILY PRN 09/15/18 09/15/18 5-325] Mirabegron [Myrbetriq] 25 mg PO DAILY 09/15/18 09/15/18 Spironolactone [Aldactone] 12.5 mg PO DAILY 09/15/18 09/15/18 Previous Rx's Medication Instructions Recorded predniSONE 1 mg PO DAILY tab 09/04/15 Ferrous Sulfate [Iron (65 MG 325 mg PO BID-W/MEALS #60 tab 11/17/16 Elemental)] Allergies Allergy/AdvReac Type Severity Reaction Status Date / Time Iodinated Contrast Media Allergy Rash/Hives Verified 04/10/20 13:37 [Iodinated Contrast Media - IV Dye] Review of Systems ROS Statement: Those systems with pertinent positive or pertinent negative responses have been documented in the HPI. ROS Other: All systems not noted in ROS Statement are negative. 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 History of Any Multi-Drug Resistant Organisms: None Reported Past Surgical History: Appendectomy, Breast Surgery, Cholecystectomy, Tonsillectomy Additional Past Surgical History / Comment(s): L breast benign biopsy, paola cataracts, biopsy left thigh mass, BMA, liver bx, lip bx, wound [facility] status post multiple debridements Past Anesthesia/Blood Transfusion Reactions: No Reported Reaction Past Psychological History: No Psychological Hx Reported Smoking Status: Never smoker Past Alcohol Use History: None Reported Past Drug Use History: None Reported - Past Family History Sister(s) Family Medical History: Osteoarthritis (OA) Additional Family Medical History / Comment(s): Severe arthritis. Mother Family Medical History: Osteoarthritis (OA) Additional Family Medical History / Comment(s): Severe arthritis. General Exam - General Exam Comments Initial Comments: This is a 79-year-old female. Alert and oriented 3. Patient appears in mild to moderate discomfort. Limitations: no limitations General appearance: alert, in no apparent distress Head exam: Present: atraumatic, normocephalic, normal inspection Eye exam: Present: normal appearance, PERRL, EOMI. Absent: scleral icterus, conjunctival injection, periorbital swelling ENT exam: Present: normal exam, mucous membranes moist Neck exam: Present: normal inspection. Absent: tenderness, meningismus, lymphadenopathy Respiratory exam: Present: normal lung sounds bilaterally. Absent: respiratory distress, wheezes, rales, rhonchi, stridor Cardiovascular Exam: Present: regular rate, normal rhythm, normal heart sounds. Absent: systolic murmur, diastolic murmur, rubs, gallop, clicks GI/Abdominal exam: Present: soft, normal bowel sounds. Absent: distended, tenderness, guarding, rebound, rigid Extremities exam: Present: full ROM, normal capillary refill. Absent: normal inspection, tenderness, pedal edema, joint swelling, calf tenderness Right Elbow exam: Present: normal inspection, full ROM Forearm Wrist exam: Absent: normal inspection (3 areas of puncture wound over the distal right forearm with extensive erythema or swelling. Patient reports pain with passive range of motion of the forearm of her fingertips.) Hand Wrist exam: Present: full ROM, other (She has area of erythema over the warren sum of right hand and the anterior aspect of the forearm. She does report normal sensation to light touch over the distal fingertips). Absent: normal inspection Neuro motor exam: Present: wrist extension intact, thumb opposition intact, thumb IP flexion intact, thumb adduction intact, fingers 2-5 abduction intact Vascular: Present: normal capillary refill Back exam: Present: normal inspection Neurological exam: Present: alert, oriented X3, CN II-XII intact Psychiatric exam: Present: normal affect, normal mood Course Vital Signs 04/10/20 04/10/20 13:34 15:35 Temperature 99.5 F 98.2 F Pulse Rate 76 88 Respiratory 18 20 Rate Blood Pressure 139/84 158/78 O2 Sat by Pulse 97 98 Oximetry Medical Decision Making - Medical Decision Making 71-year-old female with history of autoimmune diseases presents emergency arm today after cat bite on her right forearm. She was bit by her own cat. She reports that the day progressed she started to have severe pain and swelling in the forearm. She has pain with passive range of motion of her fingers. I d iscussed this with Dr. Stock in the emergency department who came to evaluate the Patient. There is concern for developing tenosynovitis and recommended taking the Patient to the OR. White blood cell count was stable to time. CRP and ESR pending. Blood culture was completed. Patient was started on Unasyn and given updated tetanus shot. Her own cat is up-to-date on its vaccines. Patient is going to OR this afternoon. - Lab Data Result diagrams: 04/10/20 14:40 04/10/20 14:40 Lab Results 04/10/20 04/10/20 04/10/20 Range/Units 14:40 14:40 14:40 WBC 13.3 H (3.8-10.6) k/uL RBC 4.53 (3.80-5.40) m/uL Hgb 13.4 (11.4-16.0) gm/dL Hct 42.6 (34.0-46.0) % MCV 94.1 (80.0-100.0) fL MCH 29.6 (25.0-35.0) pg MCHC 31.4 (31.0-37.0) g/dL RDW 13.9 (11.5-15.5) % Plt Count 175 (150-450) k/uL Neutrophils % 91 % Lymphocytes % 2 % Monocytes % 5 % Eosinophils % 1 % Basophils % 0 % Neutrophils # 12.2 H (1.3-7.7) k/uL Lymphocytes # 0.3 L (1.0-4.8) k/uL Monocytes # 0.7 (0-1.0) k/uL Eosinophils # 0.1 (0-0.7) k/uL Basophils # 0.0 (0-0.2) k/uL PT (9.0-12.0) sec INR (<1.2) APTT (22.0-30.0) sec Sodium 137 (137-145) mmol/L Potassium 5.4 H (3.5-5.1) mmol/L Chloride 106 (98-107) mmol/L Carbon Dioxide 25 (22-30) mmol/L Anion Gap 6 mmol/L BUN 30 H (7-17) mg/dL Creatinine 1.22 H (0.52-1.04) mg/dL Est GFR (CKD-EPI)AfAm 49 (>60 ml/min/1.73 sqM) Est GFR (CKD-EPI)NonAf 43 (>60 ml/min/1.73 sqM) Glucose 112 H (74-99) mg/dL Plasma Lactic Acid Fabio 1.0 (0.7-2.0) mmol/L Calcium 9.4 (8.4-10.2) mg/dL Total Bilirubin 0.9 (0.2-1.3) mg/dL AST 26 (14-36) U/L ALT 13 (4-34) U/L Alkaline Phosphatase 104 (38-126) U/L Total Protein 8.0 (6.3-8.2) g/dL Albumin 4.2 (3.5-5.0) g/dL 04/10/20 Range/Units 14:40 WBC (3.8-10.6) k/uL RBC (3.80-5.40) m/uL Hgb (11.4-16.0) gm/dL Hct (34.0-46.0) % MCV (80.0-100.0) fL MCH (25.0-35.0) pg MCHC (31.0-37.0) g/dL RDW (11.5-15.5) % Plt Count (150-450) k/uL Neutrophils % % Lymphocytes % % Monocytes % % Eosinophils % % Basophils % % Neutrophils # (1.3-7.7) k/uL Lymphocytes # (1.0-4.8) k/uL Monocytes # (0-1.0) k/uL Eosinophils # (0-0.7) k/uL Basophils # (0-0.2) k/uL PT 10.4 (9.0-12.0) sec INR 1.0 (<1.2) APTT 23.6 (22.0-30.0) sec Sodium (137-145) mmol/L Potassium (3.5-5.1) mmol/L Chloride (98-107) mmol/L Carbon Dioxide (22-30) mmol/L Anion Gap mmol/L BUN (7-17) mg/dL Creatinine (0.52-1.04) mg/dL Est GFR (CKD-EPI)AfAm (>60 ml/min/1.73 sqM) Est GFR (CKD-EPI)NonAf (>60 ml/min/1.73 sqM) Glucose (74-99) mg/dL Plasma Lactic Acid Fabio (0.7-2.0) mmol/L Calcium (8.4-10.2) mg/dL Total Bilirubin (0.2-1.3) mg/dL AST (14-36) U/L ALT (4-34) U/L Alkaline Phosphatase (38-126) U/L Total Protein (6.3-8.2) g/dL Albumin (3.5-5.0) g/dL - Radiology Data Radiology results: report reviewed X-ray shows dorsal and lateral soft tissue swelling cellulitis of the midforearm. There is appeared to be a small focus of air within the lateral soft tissues. The focus of air could represent a small laceration versus infection with gas forming organism. Clinically correlate. Disposition Clinical Impression: Cat bite, Cellulitis of forearm, right, Tenosynovitis of right forearm Disposition: ADMITTED IP TO THIS HOSP Condition: Stable Instructions (If sedation given, give patient instructions): Animal Bite (ED) Is patient prescribed a controlled substance at d/c from ED?: No Referrals: Vitaly Chambers MD [Primary Care Provider] - 1-2 days Time of Disposition: 15:51
--- NOTE | 2020-04-10 15:24 | XR ---
EXAMINATION TYPE: XR forearm RT DATE OF EXAM: 04/10/2020 COMPARISON: NONE HISTORY: 79-year-old female with cat bite TECHNIQUE: 2 views FINDINGS: There is focal soft tissue swelling along the dorsal and radial aspect of the midforearm. T here seems to be a tiny focus of soft tissue air within the lateral soft tissues, refer to the AP vie w. No periostitis or osteolysis or acute fracture, subluxation, dislocation. IMPRESSION: Dorsal and lateral soft tissue swelling/cellulitis of the mid forearm. There appears to be a small fo cus of air within the lateral soft tissues. The focus of air could represent a small laceration versu s infection with gas-forming organism. Clinically correlate.
[2020-04-10] MEDS ORDERED: ONDANSETRON 4 MG/2 ML VIAL IVP PRN (15:52)
[2020-04-10] MEDS ORDERED: HYDROmorphone 0.5 MG/0.5 ML SYRINGE IVP PRN (15:52)
[2020-04-10] MEDS ORDERED: IBUPROFEN 400 MG TAB PO PRN (15:52)
[2020-04-10] MEDS ORDERED: MORPHINE SULFATE 4 MG/ML SYRINGE IV PRN ×2 (15:52→19:32)
[2020-04-10] MEDS ORDERED: NALOXONE 0.4 MG/ML 1 ML VIAL IV PRN (15:52)
[2020-04-10] MEDS ORDERED: ACETAMINOPHEN TAB 325 MG TAB PO PRN (15:52)
--- NOTE | 2020-04-10 16:02 | P.HPOR ---
History of Present Illness H&P Date: 04/10/20 Chief Complaint: Right forearm cat bite The patient is a pleasant 79-year-old [id number] female who presented to the emergency department at [facility] for evaluation of a cat bite injury to her right forearm which occurred last night. Her own cat saw another cat outside and the patient tried to close the window to keep them . Her cat became agitated and bit her forearm. She has been experiencing progressively worsening pain, swelling and redness. She is having difficulty moving her fingers, hand and wrist secondary to the pain. She denies any fevers or chills. Past medical history is significant for CKD (stage III), RA, Sjogren's disease and various autoimmune conditions for which she takes Plaquenil and daily prednisone (1mg). She does use a walker for ambulation assistance. Past Medical History Past Medical History: Atrial Fibrillation, Asthma, Cancer, Deep Vein Thrombosis (DVT), GERD/Reflux, Osteoarthritis (OA), Renal Disease, Rheumatoid Arthritis (RA), Sleep Apnea/CPAP/BIPAP, Thyroid Disorder Additional Past Medical History / Comment(s): Autoimmune hepatits (1994), sjogrens, lupus, 2009 DVT R calf, recurrent R lower leg ulcers-seen in [facility] and healed at this time, TOMAS with device used in past then had some bacterial infections and stopped using but is now in process of possible getting another device, osteoporosis, non-Hodgkin's B lymphoma - left thigh January 2015 status post 2 chemo treatments, chronic kidney disease stage III, UTI with sepsis, chronic anemia, hypothyroid, stress incontinence. History of Any Multi-Drug Resistant Organisms: None Reported Past Surgical History: Appendectomy, Breast Surgery, Cholecystectomy, Tonsillectomy Additional Past Surgical History / Comment(s): L breast benign biopsy, paola cataracts, biopsy left thigh mass, BMA, liver bx, lip bx, wound [facility] status post multiple debridements Past Anesthesia/Blood Transfusion Reactions: No Reported Reaction Past Psychological History: No Psychological Hx Reported Smoking Status: Never smoker Past Alcohol Use History: None Reported Past Drug Use History: None Reported - Past Family History Sister(s) Family Medical History: Osteoarthritis (OA) Additional Family Medical History / Comment(s): Severe arthritis. Mother Family Medical History: Osteoarthritis (OA) Additional Family Medical History / Comment(s): Severe arthritis. Medications and Allergies Home Medications Medication Instructions Recorded Confirmed Type Levothyroxine Sodium [Synthroid] 88 mcg PO SUTUTHSA 05/26/15 11/07/17 History Levothyroxine Sodium [Synthroid] 132 mcg PO MOWEFR 05/26/15 09/15/18 History predniSONE 1 mg PO DAILY tab 09/04/15 09/15/18 Rx Hydroxychloroquine Sulfate 200 mg PO BID 11/07/17 09/15/18 History [Plaquenil] Apixaban [Eliquis] 5 mg PO BID 09/15/18 09/15/18 History HYDROcodone/APAP 5-325MG [[place] 1 tab PO DAILY PRN 09/15/18 09/15/18 History 5-325] Mirabegron [Myrbetriq] 25 mg PO DAILY 09/15/18 09/15/18 History Allergies Allergy/AdvReac Type Severity Reaction Status Date / Time Iodinated Contrast Media Allergy Rash/Hives Verified 04/10/20 15:58 [Iodinated Contrast Media - IV Dye] Physical Examination Constitution: Normal stature and development; appears stated age HEENT: Normocephalic & atraumatic Cardiovascular: Regular rate & rhythm Pulmonary: Unlabored respiratory effort without audible wheeze or conversational dyspnea Abdomen: Soft, nontender & nondistended Integumentary: No rashes or skin lesions noted in the examined areas Psychiatric: Patient interacts appropriately and is alert & oriented to person, place, time and purpose Musculoskeletal: Two closed puncture wounds on the dorsal aspect of the right midforearm. No purulence or drainage. Moderate calor and significant tenderness to palpation. No subcutaneous crepitus. Prominent, well-demarcated erythema extending around the volar/ulnar aspect of the forearm. She has limited active digital and wrist motion secondary to pain. Passive flexion and extension of the fingers is significantly painful as well. Small subcutaneous area of erythema and edema over the dorsal wrist as well. Subjectively no sensation throughout the terminal radial, median and ulnar nerve distributions. Hand is warm and well-perfused with brisk capillary refill. Results Right forearm x-rays: Prominent soft tissue swelling on the dorsal aspect of the midforearm with a small area of subcutaneous air (in the region of the bite wo und). Soft tissue streaking noted in the adjacent subcutaneous tissues. No obvious retained foreign bodies or osseous injury. - Labs Labs: Abnormal Lab Results - Last 24 Hours (Table) 04/10/20 04/10/20 Range/Units 14:40 14:40 WBC 13.3 H (3.8-10.6) k/uL Neutrophils # 12.2 H (1.3-7.7) k/uL Lymphocytes # 0.3 L (1.0-4.8) k/uL Potassium 5.4 H (3.5-5.1) mmol/L BUN 30 H (7-17) mg/dL Creatinine 1.22 H (0.52-1.04) mg/dL Glucose 112 H (74-99) mg/dL H & H 04/10/20 Range/Units 14:40 Hgb 13.4 (11.4-16.0) gm/dL Hct 42.6 (34.0-46.0) % Coagulation 04/10/20 Range/Units 14:40 INR 1.0 (<1.2) Result Diagrams: 04/10/20 14:40 04/10/20 14:40 Assessment and Plan Assessment: This is a 79-year-old [id number] female status post cat bite injury on 04/09/20. 1. Acute right forearm cellulitis and evolving abscess secondary to cat bite 2. Chronic kidney disease, stage III 3. RA/Autoimmune conditions on Plaquenil and prednisone Plan: I discussed the diagnosis and radiographic findings in detail with the patient and her daughter. We reviewed the pertinent anatomy and pathophysiology of the injury. We discussed treatment options and I explained the rationale behind surgical intervention. I explained that cat bite infections can be quite aggressive and I recommended prompt surgical debridement. We reviewed the surgi corby plan. Risks and benefits were presented, including (but not limited to) the risks of persistent infection, bleeding, wound healing problems and possible need for additional surgery. Questions were invited and answered; the patient expressed understanding, acceptance of these risks and wished to proceed with surgery. Continue PRN pain management. NPO. We move forward with expedient surgical debridement. Esdras Stock D.O. [facility]
[2020-04-10] MEDS: SODIUM CHLORIDE 0.9% 1,000 ML IV SCH (16:14)
[2020-04-10] MEDS ORDERED: IV FLUID CONTINUATION 800 ML IV ONE ×2 (17:11)
[2020-04-10] MEDS ORDERED: ONDANSETRON 4 MG/2 ML VIAL ONE (17:11)
[2020-04-10] MEDS ORDERED: fentaNYL (PF) 50 MCG/ML 2 ML AMP ONE (17:11)
[2020-04-10] MEDS ORDERED: LIDOCAINE 1% INJ 10MG/ML (20 ML MDV) ONE (17:11)
[2020-04-10] MEDS ORDERED: MIDAZOLAM 2 MG/2 ML VIAL ONE (17:11)
[2020-04-10] MEDS ORDERED: PROPOFOL 10 MG/ML 20 ML VIAL IV ONE (17:11)
[2020-04-10] MEDS ORDERED: LIDOCAINE 2% INJ 20 MG/ML SQ ONE (18:54)
[2020-04-10] MEDS ORDERED: HYDROmorphone 0.5 MG/0.5 ML SYRINGE IVP ONE ×2 (19:15→19:40)
[2020-04-10] MEDS ORDERED: FAMOTIDINE 20 MG TAB PO PRN (19:17)
[2020-04-10] MEDS ORDERED: SYMBICORT 160-4.5 MCG INHALER INHALATION PRN (19:17)
[2020-04-10] MEDS: NON FORMULARY DRUG (Mirabegron [Myrbetriq] 25 MG) PO SCH (21:18)
[2020-04-10] MEDS: AMPICILLIN-SULBACTAM 3 GM in SODIUM CHLORIDE 0.9% 100 ML IVPB SCH (21:34)
[2020-04-11] MEDS: HYDROmorphone 0.5 MG/0.5 ML SYRINGE IVP PRN ×2 (00:12→04:54)
--- NOTE | 2020-04-11 01:18 | P.CONS ---
History of Present Illness - Reason for Consult Consult date: 04/10/20 medical management Requesting physician: Esdras Chery Montrell - Chief Complaint cat bite - History of Present Illness 79-year-old female with history of rheumatoid arthritis, various autoimmune disease, Sjogren syndrome currently on Plaquenil and prednisone Patient comes in with two-day history of worsening swelling and pain and erythema over her right forearm after her cat bit her in the forearm. She describes worsening progressive swelling erythema and pain to the point where today she wasn't able to move her hand fingers or wrist due to pain and swelling for which she seeks medical attention she otherwise denies any fevers or chills. Denies any chest pain trouble breathing nausea or vomiting Patient is chronically on Plaquenil and prednisone In the ER x-ray of the right forearm shows soft tissue swelling with small area of subcutaneous air and soft tissue streaking suggestive of cellulitis with possible underlying eminent abscess formation. Blood work showed elevated white count creatinine at baseline and slightly elevated potassium, CRP and ESR both elevated. Patient was evaluated and admitted to Dr. Huddleston who did operate and did wound debridement and placed a drain she is currently seen on the medical floor postoperatively doing well reports that pain is well controlled. Tolerated procedure well Review of Systems Pertinent positives as noted in HPI. All other systems were reviewed and are negative Past Medical History Past Medical History: Atrial Fibrillation, Asthma, Cancer, Deep Vein Thrombosis (DVT), GERD/Reflux, Osteoarthritis (OA), Renal Disease, Rheumatoid Arthritis (RA), Sleep Apnea/CPAP/BIPAP, Thyroid Disorder Additional Past Medical History / Comment(s): Autoimmune hepatits (1994), sjogrens, lupus, 2009 DVT R calf, recurrent R lower leg ulcers-seen in [facility] and healed at this time, TOMAS with device used in past then had some bacterial infections and stopped using but is now in process of possible getting another device, osteoporosis, non-Hodgkin's B lymphoma - left thigh January 2015 status post 2 chemo treatments, chronic kidney disease stage III, UTI with sepsis, chronic anemia, hypothyroid, stress incontinence. History of Any Multi-Drug Resistant Organisms: None Reported Past Surgical History: Appendectomy, Breast Surgery, Cholecystectomy, Tonsillectomy Additional Past Surgical History / Comment(s): L breast benign biopsy, paola cataracts, biopsy left thigh mass, BMA, liver bx, lip bx, wound right lower [facility] status post multiple debridements Past Anesthesia/Blood Transfusion Reactions: No Reported Reaction Past Psychological History: No Psychological Hx Reported Smoking Status: Never smoker Past Alcohol Use History: None Reported Past Drug Use History: None Reported - Past Family History Sister(s) Family Medical History: Osteoarthritis (OA) Additional Family Medical History / Comment(s): Severe arthritis. Mother Family Medical History: Osteoarthritis (OA) Additional Family Medical History / Comment(s): Severe arthritis. Medications and Allergies Home Medications Medication Instructions Recorded Confirmed Type Levothyroxine Sodium [Synthroid] 88 mcg PO SUTUWETHSA 05/26/15 04/11/20 History Levothyroxine Sodium [Synthroid] 132 mcg PO MOFR 05/26/15 04/11/20 History predniSONE 1 mg PO DAILY tab 09/04/15 04/11/20 Rx Hydroxychloroquine Sulfate 200 mg PO HS 11/07/17 04/11/20 History [Plaquenil] Apixaban [Eliquis] 5 mg PO BID 09/15/18 04/11/20 History HYDROcodone/APAP 5-325MG [[place] 1 tab PO BID 09/15/18 04/11/20 History 5-325] Mirabegron [Myrbetriq] 25 mg PO HS 09/15/18 04/11/20 History Budesonide-Formot 160-4.5 Mcg 2 puff INHALATION RT-BID PRN 04/10/20 04/11/20 History [Symbicort 160-4.5 Mcg Inhaler] Cholecalciferol [Vitamin D3 (25 1,000 unit PO HS 04/10/20 04/11/20 History Mcg = 1000 Iu)] Famotidine 20 mg PO BID PRN 04/10/20 04/11/20 History Allergies Allergy/AdvReac Type Severity Reaction Status Date / Time Iodinated Contrast Media Allergy Rash/Hives Verified 04/10/20 15:58 [Iodinated Contrast Media - IV Dye] Physical Exam Vitals: Vital Signs Temp Pulse Resp BP Pulse Ox 04/10/20 15:35 98.2 F 88 20 158/78 98 04/10/20 13:34 99.5 F 76 18 139/84 97 Intake and Output 04/10/20 04/10/20 04/10/20 06:59 14:59 22:59 Intake Total 600 Output Total 20 Balance 580 Intake: IV 600 Output: Estimated Blood Loss 20 Other: Weight 67.585 kg Constitutional: No acute distress, conversant, pleasant Eyes: Anicteric sclerae, moist conjunctiva, Pupils equal round reactive to light ENMT: NC/AT Oropharynx clear, no erythema, or exudates Neck: Supple, FROM, no masses, or JVD No carotid bruits No thyromegaly Lungs: Clear to auscultation Clear to percussion Normal respiratory effort, no accessory muscle use Cardiovascular: Heart regular in rate and rhythm, No murmurs, gallops, or rubs No peripheral edema Abdominal: Soft Nontender, no guarding, rebound or rigidity Abdomen moving with respiration Normoactive bowel sounds No hepatomegaly, No splenomegaly No palpable mass No abdominal wall hernia noted Skin: Right forearm and surgical dressing with ARA drain in place has minimal amount of blood. Surgical dressing is dry clean and intact. Normal temperature, tone, texture, turgor Extremities: No tenderness to passive or active , motion of the hand or fingers No digital cyanosis No clubbing Pedal pulses intact and symmetrical Radial pulses intact and symmetrical No calf tenderness Psychiatric: Alert and oriented to person, place and time Appropriate affect fair judgement Neuro Muscles Strength 4/5 in all 4 extremities Sensation to light touch grossly present throughout Cranial nerves II-XII grossly intact No focal sensory deficits Lymphatics: no palpable cervical or supraclavicular , or inguinal lymph nodes Results CBC & Chem 7: 04/10/20 14:40 04/10/20 14:40 Labs: Abnormal Lab Results - Last 24 Hours (Table) 04/10/20 04/10/20 04/10/20 Range/Units 14:40 14:40 14:40 WBC 13.3 H (3.8-10.6) k/uL Neutrophils # 12.2 H (1.3-7.7) k/uL Lymphocytes # 0.3 L (1.0-4.8) k/uL ESR 25 H (0-20) mm/hr Potassium 5.4 H (3.5-5.1) mmol/L BUN 30 H (7-17) mg/dL Creatinine 1.22 H (0.52-1.04) mg/dL Glucose 112 H (74-99) mg/dL C-Reactive Protein (<10.0) mg/L 04/10/20 Range/Units 14:40 WBC (3.8-10.6) k/uL Neutrophils # (1.3-7.7) k/uL Lymphocytes # (1.0-4.8) k/uL ESR (0-20) mm/hr Potassium (3.5-5.1) mmol/L BUN (7-17) mg/dL Creatinine (0.52-1.04) mg/dL Glucose (74-99) mg/dL C-Reactive Protein 11.3 H (<10.0) mg/L Assessment and Plan Assessment: Acute cellulitis of the right forearm secondary to cat bite with possible underlying abscess status post debridement postoperative day 0 Continue with Unasyn Pain control Follow-up with Dr. Palacios Elevate the right arm Gentle IV fluid hydration Chronic conditions Hypothyroid resume levothyroxine GERD resume PPI CK D patient 3 at baseline History of rheumatoid arthritis angiogram syndrome patient is chronically on prednisone 1 mg this is unlikely to affect the HPA axis suppression so will continue same dose without modification Hold plaque we'll which might affect wound healing for now I suggest that patie nt hold Plaquenil for 2 weeks if she is asymptomatic A. fib rate controlled on Eliquis, currently on hold due to postoperative time await for clearance from surgery to resume Eliquis, once drains removed History of cancer non-Hodgkin lymphoma Patient is no code Thank you for allowing us to participate in the care of this patient. Do not hesitate to contact us with questions. Someone can be reached from the [facility] hospitalist group at all hours of the day at [phone].
[2020-04-11] MEDS: MELATONIN 3 MG TABLET PO SCH ×2 (02:31→21:40)
[2020-04-11] MEDS: SODIUM CHLORIDE 0.9% 1,000 ML IV SCH ×3 (02:31→14:09)
[2020-04-11] MEDS: AMPICILLIN-SULBACTAM 3 GM in SODIUM CHLORIDE 0.9% 100 ML IVPB SCH ×3 (06:18→18:07)
[2020-04-11] MEDS: HYDROcodone/APAP 5-325MG 1 EACH TAB PO PRN ×4 (06:19→18:01)
[2020-04-11] MEDS: LEVOTHYROXINE 88 MCG TAB PO SCH (06:19)
[2020-04-11 07:30] LABS: Basophils % (A) 0 %; Eosinophils % (A) 0 %; HCT 36.3 % (34.0-46.0); HGB 11.1 gm/dL (11.4-16.0); Hypochromasia Moderate; Lymphocytes # (A) 0.4 k/uL (1.0-4.8); Lymphocytes % (A) 3 %; MCH 29.9 pg (25.0-35.0); MCHC 30.7 g/dL (31.0-37.0); MCV 97.4 fL (80.0-100.0); Mean Platelet Volume 8.2; Monocytes # (A) 0.7 k/uL (0-1.0); Monocytes % (A) 6 %; Neutrophils # (A) 10.8 k/uL (1.3-7.7); Neutrophils % (A) 89 %; Platelet Count 130 k/uL (150-450); RBC 3.73 m/uL (3.80-5.40); RDW 14.1 % (11.5-15.5); WBC 12.2 k/uL (3.8-10.6)
[2020-04-11 07:41] LABS: Calcium 7.7 mg/dL (8.4-10.2); Potassium 4.3 mmol/L (3.5-5.1)
[2020-04-11] MEDS ORDERED: ALBUTEROL NEBULIZED 2.5 MG/3 ML INHALATION PRN (09:45)
--- NOTE | 2020-04-11 09:51 | P.PN ---
Subjective Progress Note Date: 04/11/20 Principal diagnosis: right arm swelling 71-year-old female with a history of rheumatoid arthritis on chronic immunosuppressive therapy with plaquenil and prednisone, autoimmune hepatitis, A. fib on anticoagulation with Eliquis, and multiple other comorbid conditions who presented to the ER due to pain and swelling in her right upper extremity. She was subsequently found to have Bite with surrounding cellulitis and possible tenosynovitis. She was taken to the OR by Dr. Huddleston on 04/10 for patient and debrided minutes. She had a drain placed. We're consulted for medical management. Seen and examined at bedside. She reports her pain is better improved than yesterday. She has a history of yeast infections with antibiotic use and typically takes Monistat 3. She denies any current chest pain, shortness breath, nausea, or vomiting. General: ill appearing, no distress, appears at stated age Derm: erythema, edema of ringer and dressing wtih ARA drain right forearm, warm, dry Head: atraumatic, normocephalic, symmetric Eyes: EOMI, no lid lag, anicteric sclera Mouth: no lip lesion, mucus membranes moist Cardiovascular: S1S2 reg, no murmur, positive posterior tibial pulse bilateral, Lungs: Decreased bs bilateral with crackles on the right, no rhonchi, no rales , no accessory muscle use Abdominal: soft, nontender to palpation, no guarding, no appreciable organomegaly Ext: no gross muscle atrophy, 1+ bilateral lower extremity edema, no cont ractures Neuro: CN II-XI grossly intact, no focal neuro deficits Psych: Alert, oriented, appropriate affect Cellulitis and tenosynovitis due to cat bite -s/p I and D - unasyn - await ID recs - pain control - ortho recs - stop IVF THrombocytopenia - follow CBC - mild and likelt reactive A fib - eliquis on hold until okay to resume by ortho (still with sangunaous drainage from ARA) - not on rate controlling medications RA on immunosuppressive therapy - hold Plaquenil X 2 weeks - Prednisone - pain control Probable COPD without acute exacerbation - resume symbicort - as needed albuterol DVT prophylaxis: SCDs Discussed with: Patient, nursing Anticipated discharge: per ortho Anticipated discharge place: home with home healthy A total of 45 minutes was spent on the care of this complex patient more than 50% of the time was spent in counseling and care coordination. Objective - Vital Signs Vital signs: Vital Signs Temp 98.3 F 04/11/20 00:25 Pulse 79 04/11/20 00:25 Resp 18 04/11/20 00:25 BP 144/69 04/11/20 00:25 Pulse Ox 95 04/11/20 00:25 Intake & Output 04/10/20 04/11/20 04/11/20 18:59 06:59 18:59 Intake Total 1355 Output Total 815 Balance 540 Weight 67.585 kg 67.585 kg Intake: IV 825 Oral 530 Output: Drainage 45 Right Hand 45 Urine 750 Estimated Blood Loss 20 Other: Voiding Method Bedside Commode Diaper Incontinent - Labs CBC & Chem 7: 04/11/20 07:06 04/11/20 07:06 Labs: Abnormal Lab Results - Last 24 Hours (Table) 04/10/20 04/10/20 04/10/20 Range/Units 14:40 14:40 14:40 WBC 13.3 H (3.8-10.6) k/uL RBC (3.80-5.40) m/uL Hgb (11.4-16.0) gm/dL MCHC (31.0-37.0) g/dL Plt Count (150-450) k/uL Neutrophils # 12.2 H (1.3-7.7) k/uL Lymphocytes # 0.3 L (1.0-4.8) k/uL ESR 25 H (0-20) mm/hr Potassium 5.4 H (3.5-5.1) mmol/L Chloride (98-107) mmol/L Carbon Dioxide (22-30) mmol/L BUN 30 H (7-17) mg/dL Creatinine 1.22 H (0.52-1.04) mg/dL Glucose 112 H (74-99) mg/dL Calcium (8.4-10.2) mg/dL C-Reactive Protein (<10.0) mg/L 04/10/20 04/11/20 04/11/20 Range/Units 14:40 07:06 07:06 WBC 12.2 H (3.8-10.6) k/uL RBC 3.73 L (3.80-5.40) m/uL Hgb 11.1 L (11.4-16.0) gm/dL MCHC 30.7 L (31.0-37.0) g/dL Plt Count 130 L (150-450) k/uL Neutrophils # 10.8 H (1.3-7.7) k/uL Lymphocytes # 0.4 L (1.0-4.8) k/uL ESR (0-20) mm/hr Potassium (3.5-5.1) mmol/L Chloride 112 H (98-107) mmol/L Carbon Dioxide 20 L (22-30) mmol/L BUN 23 H (7-17) mg/dL Creatinine (0.52-1.04) mg/dL Glucose 110 H (74-99) mg/dL Calcium 7.7 L (8.4-10.2) mg/dL C-Reactive Protein 11.3 H (<10.0) mg/L Microbiology - Last 24 Hours (Table) 04/10/20 19:05 Gram Stain - Preliminary Wrist - Right Wound Culture - Preliminary 04/10/20 19:05 Gram Stain - Preliminary Arm - Right Wound Culture - Preliminary
[2020-04-11] MEDS: predniSONE 1 MG TAB PO SCH (10:04)
--- NOTE | 2020-04-11 10:12 | P.PN ---
<Sarah Lauren - Last Filed: 04/11/20 10:03> Subjective Progress Note Date: 04/11/20 Principal diagnosis: Cat bite right forearm The patient is a very pleasant 79-year-old female who is status post I&D of the right forearm. Today is postop day #1. The patient states that she is feeling better than yesterday and her chills are gone. She denies fever this morning. She has been working on range of motion of her fingers both active and passive. There was good drain output last night. She is currently receiving Unasyn. Intraoperative cultures are pending. Objective - Vital Signs Vital signs: Vital Signs Temp 98.0 F 04/11/20 08:00 Pulse 82 04/11/20 08:00 Resp 18 04/11/20 08:00 BP 114/50 04/11/20 08:00 Pulse Ox 97 04/11/20 08:00 Intake & Output 04/10/20 04/11/20 04/11/20 18:59 06:59 18:59 Intake Total 1355 Output Total 815 Balance 540 Weight 67.585 kg 67.585 kg Intake: IV 825 Oral 530 Output: Drainage 45 Right Hand 45 Urine 750 Estimated Blood Loss 20 Other: Voiding Method Bedside Commode Diaper Incontinent - Exam The patient does not appear in acute distress. Alert and orientated x3. Dressing is clean dry and intact. ARA drain in place with small amount of sanguinous drainage in the bulb. Range of motion of the fingers have improved. She is unable to make a fist and still unable to full extend fingers actively with some pain. Moderate dorsal hand and finger edema present. Sensation and circulatory status is intact. - Labs CBC & Chem 7: 04/11/20 07:06 04/11/20 07:06 Labs: Abnormal Lab Results - Last 24 Hours (Table) 04/10/20 04/10/20 04/10/20 Range/Units 14:40 14:40 14:40 WBC 13.3 H (3.8-10.6) k/uL RBC (3.80-5.40) m/uL Hgb (11.4-16.0) gm/dL MCHC (31.0-37.0) g/dL Plt Count (150-450) k/uL Neutrophils # 12.2 H (1.3-7.7) k/uL Lymphocytes # 0.3 L (1.0-4.8) k/uL ESR 25 H (0-20) mm/hr Potassium 5.4 H (3.5-5.1) mmol/L Chloride (98-107) mmol/L Carbon Dioxide (22-30) mmol/L BUN 30 H (7-17) mg/dL Creatinine 1.22 H (0.52-1.04) mg/dL Glucose 112 H (74-99) mg/dL Calcium (8.4-10.2) mg/dL C-Reactive Protein (<10.0) mg/L 04/10/20 04/11/20 04/11/20 Range/Units 14:40 07:06 07:06 WBC 12.2 H (3.8-10.6) k/uL RBC 3.73 L (3.80-5.40) m/uL Hgb 11.1 L (11.4-16.0) gm/dL MCHC 30.7 L (31.0-37.0) g/dL Plt Count 130 L (150-450) k/uL Neutrophils # 10.8 H (1.3-7.7) k/uL Lymphocytes # 0.4 L (1.0-4.8) k/uL ESR (0-20) mm/hr Potassium (3.5-5.1) mmol/L Chloride 112 H (98-107) mmol/L Carbon Dioxide 20 L (22-30) mmol/L BUN 23 H (7-17) mg/dL Creatinine (0.52-1.04) mg/dL Glucose 110 H (74-99) mg/dL Calcium 7.7 L (8.4-10.2) mg/dL C-Reactive Protein 11.3 H (<10.0) mg/L Microbiology - Last 24 Hours (Table) 04/10/20 19:05 Gram Stain - Preliminary Wrist - Right Wound Culture - Preliminary 04/10/20 19:05 Gram Stain - Preliminary Arm - Right Wound Culture - Preliminary Assessment and Plan (1) Cat bite Current Visit: Yes Status: Acute Code(s): W55.01XA - BITTEN BY CAT, INITIAL ENCOUNTER SNOMED Code(s): 686282439 (2) Cellulitis of forearm, right Current Visit: Yes Status: Acute Code(s): L03.113 - CELLULITIS OF RIGHT UPPER LIMB SNOMED Code(s): 42259076 (3) Tenosynovitis of right forearm Current Visit: Yes Status: Acute Code(s): M65.9 - SYNOVITIS AND TENOSYNOVITIS, UNSPECIFIED SNOMED Code(s): 29512261 Plan: The clinical findings were discussed with the patient. The case was discussed with Dr. Stock. Continue IV Unasyn. We will await final cultures. The drain will remain in place today and if output is less than 30 mL today, the drain will be removed tomorrow by orthopedics. I encouraged active and passive finger range of motion, which the patient has been already working on. Continue pain management as needed. We will continue to follow patient closely and make further recommendations as needed. <Esdras Stock - Last Filed: 04/12/20 09:27> Objective - Vital Signs Vital signs: Vital Signs Temp 97.7 F 04/12/20 08:13 Pulse 84 04/12/20 08:13 Resp 16 04/12/20 08:13 BP 127/74 04/12/20 08:13 Pulse Ox 97 04/12/20 08:13 Intake & Output 04/11/20 04/12/20 04/12/20 18:59 06:59 18:59 Intake Total 840 Output Total 364 325 50 Balance 476 -325 -50 Intake: Oral 840 Output: Drainage 14 Right Hand 14 Urine 350 325 50 Other: Voiding Method Bedside Commode Bedside Commode Bedside Commode Incontinent Diaper Diaper Incontinent Incontinent # Voids 1 - Labs CBC & Chem 7: 04/12/20 05:51 04/12/20 05:51 Labs: Abnormal Lab Results - Last 24 Hours (Table) 04/12/20 04/12/20 Range/Units 05:51 05:51 RBC 3.30 L (3.80-5.40) m/uL Hgb 9.9 L (11.4-16.0) gm/dL Hct 32.4 L (34.0-46.0) % MCHC 30.5 L (31.0-37.0) g/dL Plt Count 110 L (150-450) k/uL Chloride 111 H (98-107) mmol/L Carbon Dioxide 21 L (22-30) mmol/L BUN 19 H (7-17) mg/dL Calcium 8.0 L (8.4-10.2) mg/dL C-Reactive Protein 142.3 H (<10.0) mg/L Total Protein 5.8 L (6.3-8.2) g/dL Albumin 2.7 L (3.5-5.0) g/dL Microbiology - Last 24 Hours (Table) 04/10/20 19:05 Gram Stain - Preliminary Arm - Right Wound Culture - Preliminary Gram Neg Bacilli 04/10/20 14:40 Blood Culture - Preliminary Blood No Growth after 24 hours Assessment and Plan Plan: Discussed with PRAKASH Lauren and agree with above. Patient was subsequently seen and examined by me as well. S: The patient states that the pain has improved significantly compared to the preop level. She denies any numbness, tingling or specific functional. She has been working on active and passive mobilization of the digits as instructed. O: The dressings are clean, dry and in place. No strikethrough. Drain is in place. Moderate edema of the dorsal hand but minimal in the fingers. Full active extension of the thumb and fingers. Pain with passive flexion. Only mild pain with midrange passive flexion and extension of the fingers. Subjectively normal sensation across the dorsum of the hand and throughout the digits. A: 1. Post-op day #1 status post I&D of right forearm abscess and extensor tenosynovectomy secondary to cat bite injury P: I reviewed the clinical and intraoperative findings with the patient and her niece. Intraoperative cultures are still pending continue empiric IV unasyn. Leave dressing in place. We will change this tomorrow and likely remove the drain that time. I stressed the importance of continuing active and passive mobilization of the digits to decrease the risk of adhesion formation. Motion exercises were demonstrated. Continue as needed pain management. Further recommendations to follow. Esdras Stock D.O. [facility]
[2020-04-11] MEDS: SYMBICORT 160-4.5 MCG INHALER INHALATION SCH ×2 (11:06→21:18)
[2020-04-11] MEDS: NON FORMULARY DRUG (Mirabegron [Myrbetriq] 25 MG) PO SCH (21:41)
--- NOTE | 2020-04-11 22:11 | P.OP ---
Date of Procedure: 04/10/20 Preoperative Diagnosis: 1. Right forearm cat bite wound with acute cellulitis and evolving abscess Postoperative Diagnosis: 1. Right forearm cat bite wound with acute cellulitis and evolving abscess 2. Suppurative extensor tenosynovitis - right wrist and forearm Procedure(s) Performed: 1. Irrigation and sharp excisional debridement of right forearm cat bite wound 2. Incision and drainage of right forearm/wrist abscess with extensor tenosynovectomy 3. Right PIN (posterior interosseous nerve) neurectomy Anesthesia: GITAA Surgeon: Esdras Stock Estimated Blood Loss (ml): 20 Pathology: other (culture swabs (#1 forearm; #2 hand/wrist)) Condition: stable Disposition: PACU Indications for Procedure: The patient is very pleasant 79-year-old female who presented to the ED for evaluation treatment of progressive right forearm pain secondary to a cat bite injury which occurred early this morning. Her exam was consistent with acute cellulitis and an evolving abscess. Treatment options were discussed and prompt surgical debridement was recommended. Risks and benefits were reviewed including (but not limited to) the risks of bleeding, injury to tendons or neurovascular structures, persistent or recurrent infection, wound healing problems and possible need for additional surgery. The patient expressed understanding, willingness to accept these risks and wished to proceed with surgery. Consent forms were signed. The surgical site was confirmed and marked preoperatively. Operative Findings: Extensive diffuse edema throughout the dorsal forearm. The bite punctured through the fascia and there was some damage to the EDC muscle belly with early myonecrosis. A small amount of purulent fluid was identified in the fourth dorsal compartment at the level of the carpus. The total area of debridement: Forearm: ~14 cm x 10 cm; Hand/wrist: ~5 cm x 4 cm. Description of Procedure: The patient was positioned supine with the right arm on a hand table. A tourniquet was applied. Anesthesia was administered uneventfully. The right upper extremity was then prepped and draped in standard, sterile fashion. A time-out was performed, confirming patient identifiers, the operative side, site and the procedure to be performed: all team members expressed agreement. The limb was exsanguinated with gravity and the tourniquet was inflated. Loupe magnification was utilized throughout the case for optimum visualization. A longitudinal incision was marked over the mid-dorsal forearm. The largest puncture wound (centered over the main area of edema & inflammation) was incorporated into the incision in an elliptical fashion. The skin was incised and the skin flap containing the wound was sharply dissected free, removing a full-thickness segment of skin and subcutaneous tissue, measuring 16 mm x 6 mm. The wound was explored with blunt finger and spreading scissor dissection. The subcutaneous tissues were markedly edematous there was no frankly purulent fluid. There was a traumatic rupture in the forearm fascia immediately beneath the bite wound on the skin. This was sharply extended longitudinally. A swab culture from this site was obtained. There was a small area (10 mm x 15 mm) of obvious injury to the EDC muscle belly. The surrounding muscle fibers were still pink but they had very poor consistency and were noncontractile when touched with cautery. The unhealthy/nonviable muscle was sharply resected back to healthy, bleeding, contractile muscle fibers. The surrounding extensor muscles were bluntly explored: there were no other areas of obvious muscle damage or any focal purulent fluid collections. There was a small separate area of focal edema over the wrist distally. A longitudinal incision was made. The subcutaneous tissues were bluntly spread. There was obvious fluid within the 4th dorsal compartment. The distal portion of the extensor retinaculum was released and a small amount of purulent fluid was encountered. A separate culture swab of this fluid was obtained. There was a moderate amount of thickened, proliferative tenosynovial tissue surrounding the EDC tendons. A tenosynovectomy was performed, sharply resecting inflammatory and infected-appearing tissue. The tendons appeared uninjured. The terminal branch of the posterior interosseous nerve was identified within the floor of the compartment. Given the amount of inflammation and appearance of the surrounding tissues, the decision was made to perform a PIN neurectomy for adjunct pain relief. A 1 cm segment was sharply resected. The infection did not appear to violate the dorsal wrist capsule. A sharp excisional debridement was performed, utilizing scalpels, scissors, curettes and rongeurs to resect infected/unhealthy tissues from both the forearm and wrist wounds: this included skin, subcutaneous tissue, fat, fascia and muscle. Resection proceeded until healthy-appearing tissues with bleeding edges were obtained. A combination of sharp and mechanical debridement was used to resect unhealthy tissue and remove purulent material. The wounds were copiously irrigated with 6 liters of normal saline using cystoscopy tubing and gravity inflow. The surrounding soft tissues were mechanically debrided with a curette. Once satisfactory debridement was achieved, the tourniquet was released after 44 minutes at 200 mmHg; hemostasis was obtained with manual pressure and electrocautery. A 7 mm flat AAR drain was inserted into the proximal wound and passed through a small stab incision distally. The incisions were closed with interrupted 4-0 Prolene sutures. Local anesthetic without epinephrine was injected for postoperative pain control. Soft, sterile dressings of Adaptic, 4 x 4's, Kerlix and Coban were applied. All sponge, needle and instrument counts were correct at the end of the case. The patient tolerated the procedure well and was taken to recovery in stable condition. The patient will be returned to the floor for continued monitoring and IV antibiotics, to be guided by intraoperative cultures.
[2020-04-12] MEDS: AMPICILLIN-SULBACTAM 3 GM in SODIUM CHLORIDE 0.9% 100 ML IVPB SCH ×4 (00:09→17:49)
[2020-04-12] MEDS: HYDROcodone/APAP 5-325MG 1 EACH TAB PO PRN ×3 (00:10→20:14)
--- NOTE | 2020-04-12 02:12 | P.CONS ---
History of Present Illness - Reason for Consult Consult date: 04/11/20 Right forearm cat bite cellulitis Requesting physician: Esdras Stock - Chief Complaint Right forearm pain and swelling x one day - History of Present Illness Patient is a 79-year-old female who was bitten on her right forearm by her pet cat when she tried to close the window That happened apparently in the morning patient subsequently presented to hospital with increasing pain swelling redness of the right forearm patient described the pain to be throbbing almost 10 out of 10 in severity with associated swelling and redness that has progressed very quickly on arrival to the ER the patient did have low-grade fever of 99F patient did have elevated white count of 13,000 patient was evaluated by orthopedic surgery and the patient was subsequently taken to the OR last night patient status post debridement of the right forearm wound she was noticed to have evidence of suppurative extensor tenosynovitis local culture has been obtained patient was started on Unasyn and admitted to the hospital infectious disease was consulted for further managementAntibiotic therapy Review of Systems Positive point has been mentioned in the HPI rest of the systems are negative Past Medical History Past Medical History: Atrial Fibrillation, Asthma, Cancer, Deep Vein Thrombosis (DVT), GERD/Reflux, Osteoarthritis (OA), Renal Disease, Rheumatoid Arthritis (RA), Sleep Apnea/CPAP/BIPAP, Thyroid Disorder Additional Past Medical History / Comment(s): Autoimmune hepatits (1994), sjogrens, lupus, 2009 DVT R calf, recurrent R lower leg ulcers-seen in [facility] and healed at this time, TOMAS with device used in past then had some bacterial infections and stopped using but is now in process of possible getting another device, osteoporosis, non-Hodgkin's B lymphoma - left thigh January 2015 status post 2 chemo treatments, chronic kidney disease stage III, UTI with sepsis, chronic anemia, hypothyroid, stress incontinence. History of Any Multi-Drug Resistant Organisms: None Reported Past Surgical History: Appendectomy, Breast Surgery, Cholecystectomy, Tonsillectomy Additional Past Surgical History / Comment(s): L breast benign biopsy, [place] cataracts, biopsy left thigh mass, BMA, liver bx, lip bx, wound right lower [facility] status post multiple debridements Past Anesthesia/Blood Transfusion Reactions: No Reported Reaction Past Psychological History: No Psychological Hx Reported Smoking Status: Never smoker Past Alcohol Use History: None Reported Past Drug Use History: None Reported - Past Family History Sister(s) Family Medical History: Osteoarthritis (OA) Additional Family Medical History / Comment(s): Severe arthritis. Mother Family Medical History: Osteoarthritis (OA) Additional Family Medical History / Comment(s): Severe arthritis. Medications and Allergies Home Medications Medication Instructions Recorded Confirmed Type Levothyroxine Sodium [Synthroid] 88 mcg PO SUTUWETHSA 05/26/15 04/11/20 History Levothyroxine Sodium [Synthroid] 132 mcg PO MOFR 05/26/15 04/11/20 History predniSONE 1 mg PO DAILY tab 09/04/15 04/11/20 Rx Hydroxychloroquine Sulfate 200 mg PO HS 11/07/17 04/11/20 History [Plaquenil] Apixaban [Eliquis] 5 mg PO BID 09/15/18 04/11/20 History HYDROcodone/APAP 5-325MG [[place] 1 tab PO BID 09/15/18 04/11/20 History 5-325] Mirabegron [Myrbetriq] 25 mg PO HS 09/15/18 04/11/20 History Budesonide-Formot 160-4.5 Mcg 2 puff INHALATION RT-BID PRN 04/10/20 04/11/20 Hi story [Symbicort 160-4.5 Mcg Inhaler] Cholecalciferol [Vitamin D3 (25 1,000 unit PO HS 04/10/20 04/11/20 History Mcg = 1000 Iu)] Famotidine 20 mg PO BID PRN 04/10/20 04/11/20 History Allergies Allergy/AdvReac Type Severity Reaction Status Date / Time Iodinated Contrast Media Allergy Rash/Hives Verified 04/10/20 15:58 [Iodinated Contrast Media - IV Dye] Physical Exam Vitals: Vital Signs Temp Pulse Pulse Pulse Pulse Resp BP 04/11/20 12:02 97.6 F 88 16 04/11/20 08:00 98.0 F 82 18 04/11/20 00:25 98.3 F 79 18 04/10/20 23:25 75 18 04/10/20 22:25 85 04/10/20 21:55 81 04/10/20 21:25 94 04/10/20 21:10 94 04/10/20 20:55 90 18 07/24/20 20:40 98.4 F 112 H 18 04/10/20 20:09 94 16 04/10/20 19:54 94 17 04/10/20 19:39 80 16 04/10/20 19:24 96 16 04/10/20 19:09 98.0 F 84 16 04/10/20 15:35 98.2 F 88 20 158/78 04/10/20 13:34 99.5 F 76 18 139/84 BP Pulse Ox 04/11/20 12:02 117/61 97 04/11/20 08:00 114/50 97 04/11/20 00:25 144/69 95 04/10/20 23:25 138/80 96 04/10/20 22:25 115/64 96 04/10/20 21:55 148/87 97 04/10/20 21:25 127/76 97 04/10/20 21:10 146/82 96 04/10/20 20:55 181/80 96 04/10/20 20:40 175/90 95 04/10/20 20:09 155/70 97 04/10/20 19:54 162/79 97 04/10/20 19:39 160/74 98 04/10/20 19:24 162/74 99 04/10/20 19:09 156/82 96 04/10/20 15:35 98 04/10/20 13:34 97 Intake and Output 04/10/20 04/11/20 04/11/20 22:59 06:59 14:59 Intake Total 1115 240 480 Output Total 420 395 8 Balance 695 -155 472 Intake: IV 825 Oral 290 240 480 Output: Drainage 45 8 Right Hand 45 8 Urine 400 350 Estimated Blood Loss 20 Other: Voiding Method Bedside Commode Bedside Commode Diaper Diaper Incontinent Incontinent # Voids 1 Weight 67.585 kg GENERAL DESCRIPTION: An elderly female lying in bed, no distress. No tachypnea or accessory muscle of respiration use. HEENT: Shows Pallor , no scleral icterus. Oral mucous membrane is dry. No pharyngeal erythema or thrush NECK: Trachea central, no thyromegaly. LUNGS: Unlabored breathing. Clear to auscultation anteriorly. No wheeze or crackle. HEART: S1, S2, regular rate and rhythm. No loud murmur ABDOMEN: Soft, no tenderness , guarding or rigidity, no organomegaly EXTREMITIES: Right forearm did have extensive swelling redness on his currently covered in OR dressing SKIN: No rash, no masses palpable. NEUROLOGICAL: The patient is awake, alert, oriented x3, mood and affect normal. Results CBC & Chem 7: 04/11/20 07:06 04/11/20 07:06 Labs: Abnormal Lab Results - Last 24 Hours (Table) 04/10/20 04/10/20 04/10/20 Range/Units 14:40 14:40 14:40 WBC 13.3 H (3.8-10.6) k/uL RBC (3.80-5.40) m/uL Hgb (11.4-16.0) gm/dL MCHC (31.0-37.0) g/dL Plt Count (150-450) k/uL Neutrophils # 12.2 H (1.3-7.7) k/uL Lymphocytes # 0.3 L (1.0-4.8) k/uL ESR 25 H (0-20) mm/hr Potassium 5.4 H (3.5-5.1) mmol/L Chloride (98-107) mmol/L Carbon Dioxide (22-30) mmol/L BUN 30 H (7-17) mg/dL Creatinine 1.22 H (0.52-1.04) mg/dL Glucose 112 H (74-99) mg/dL Calcium (8.4-10.2) mg/dL C-Reactive Protein (<10.0) mg/L 04/10/20 04/11/20 04/11/20 Range/Units 14:40 07:06 07:06 WBC 12.2 H (3.8-10.6) k/uL RBC 3.73 L (3.80-5.40) m/uL Hgb 11.1 L (11.4-16.0) gm/dL MCHC 30.7 L (31.0-37.0) g/dL Plt Count 130 L (150-450) k/uL Neutrophils # 10.8 H (1.3-7.7) k/uL Lymphocytes # 0.4 L (1.0-4.8) k/uL ESR (0-20) mm/hr Potassium (3.5-5.1) mmol/L Chloride 112 H (98-107) mmol/L Carbon Dioxide 20 L (22-30) mmol/L BUN 23 H (7-17) mg/dL Creatinine (0.52-1.04) mg/dL Glucose 110 H (74-99) mg/dL Calcium 7.7 L (8.4-10.2) mg/dL C-Reactive Protein 11.3 H (<10.0) mg/L Microbiology - Last 24 Hours (Table) 04/10/20 19:05 Gram Stain - Preliminary Wrist - Right Wound Culture - Preliminary 04/10/20 19:05 Gram Stain - Preliminary Arm - Right Wound Culture - Preliminary Assessment and Plan Assessment: 1- patient presented to hospital with right forearm pain swelling redness after the patient has been brought in by her Cat with evidence of a suppurative extensor tenosynovitis We'll need to cover for the polymicrobial raquel of the cat Mouth usually gram-negative such as Pasteurella (1) Cat bite Current Visit: Yes Status: Acute Code(s): W55.01XA - BITTEN BY CAT, INITIAL ENCOUNTER SNOMED Code(s): 015333792 (2) Cellulitis of forearm, right Current Visit: Yes Status: Acute Code(s): L03.113 - CELLULITIS OF RIGHT UPPER LIMB SNOMED Code(s): 66494152 Plan: 1- Unasyn 3 g every 6 hours 2- gentle IV fluid We will follow on clinical condition and cultures to further adjust medication if needed Thank you for this consultation will follow this patient with you Time with Patient: Greater than 30
[2020-04-12] MEDS: HYDROmorphone 0.5 MG/0.5 ML SYRINGE IVP PRN ×2 (02:47→16:49)
[2020-04-12] MEDS: LEVOTHYROXINE 88 MCG TAB PO SCH (06:23)
[2020-04-12 08:09] LABS: HCT 32.4 % (34.0-46.0); HGB 9.9 gm/dL (11.4-16.0); Hypochromasia Moderate; MCH 29.9 pg (25.0-35.0); MCHC 30.5 g/dL (31.0-37.0); Mean Platelet Volume 8.7; Platelet Count 110 k/uL (150-450); WBC 8.9 k/uL (3.8-10.6)
[2020-04-12] MEDS: predniSONE 1 MG TAB PO SCH (08:11)
[2020-04-12 08:19] LABS: Albumin 2.7 g/dL (3.5-5.0); Potassium 4.5 mmol/L (3.5-5.1); Total Bilirubin 0.6 mg/dL (0.2-1.3); Total Protein 5.8 g/dL (6.3-8.2)
[2020-04-12 08:33] LABS: C Reactive Protein 142.3 mg/L (<10.0)
[2020-04-12] MEDS: SYMBICORT 160-4.5 MCG INHALER INHALATION SCH ×2 (09:12→20:20)
[2020-04-12] MEDS: SODIUM CHLORIDE 0.9% 1,000 ML IV SCH (11:52)
--- NOTE | 2020-04-12 13:34 | P.PN ---
Subjective Progress Note Date: 04/12/20 Principal diagnosis: Right upper extremity cellulitis Patient was seen and examined. No acute events overnight. Patient reports improvement in her right upper extremity swelling and pain. She reports improved flexibility in her fingers and wrist. Erythema has not changed much since yesterday. Drain has been draining serosanguineous fluid overnight. Patient denies any chest pain, shortness of breath or palpitations. No nausea or vomiting. No fever or chills. Objective - Vital Signs Vital signs: Vital Signs Temp 98.3 F 04/12/20 11:54 Pulse 74 04/12/20 11:54 Resp 16 04/12/20 11:54 BP 119/62 04/12/20 11:54 Pulse Ox 96 04/12/20 11:54 Intake & Output 04/11/20 04/12/20 04/12/20 18:59 06:59 18:59 Intake Total 840 240 Output Total 364 325 156 Balance 476 -325 84 Intake: Oral 840 240 Output: Drainage 14 6 Right Hand 14 6 Urine 350 325 150 Other: Voiding Method Bedside Commode Bedside Commode Bedside Commode Incontinent Diaper Diaper Incontinent Incontinent # Voids 1 - Exam General: [non toxic], [no distress], [appears at stated age] Derm: [warm], [dry] Head: [atraumatic], [normocephalic], [symmetric] Eyes: [EOMI], [no lid lag], [anicteric sclera] Mouth: [no lip lesion], [mucus membranes moist] Cardiovascular: [S1S2 irregular], [no murmur], [positive DP pulse bilateral], Lungs: [Decreased breath sounds bilateral], [no rhonchi, no rales] , [no acces danish muscle use] Abdominal: [soft], [ nontender to palpation], [no guarding], [no appreciable organomegaly] Ext: [no gross muscle atrophy], [no edema], [no contractures], [right upper extremity stitches intact, erythematous extending above the elbow, drain intact] Neuro: [no focal neuro deficits] Psych: [Alert], [oriented], [appropriate affect] - Labs CBC & Chem 7: 04/12/20 05:51 04/12/20 05:51 Labs: Abnormal Lab Results - Last 24 Hours (Table) 04/12/20 04/12/20 Range/Units 05:51 05:51 RBC 3.30 L (3.80-5.40) m/uL Hgb 9.9 L (11.4-16.0) gm/dL Hct 32.4 L (34.0-46.0) % MCHC 30.5 L (31.0-37.0) g/dL Plt Count 110 L (150-450) k/uL Chloride 111 H (98-107) mmol/L Carbon Dioxide 21 L (22-30) mmol/L BUN 19 H (7-17) mg/dL Calcium 8.0 L (8.4-10.2) mg/dL C-Reactive Protein 142.3 H (<10.0) mg/L Total Protein 5.8 L (6.3-8.2) g/dL Albumin 2.7 L (3.5-5.0) g/dL Microbiology - Last 24 Hours (Table) 04/10/20 19:05 Gram Stain - Preliminary Arm - Right Wound Culture - Preliminary Gram Neg Bacilli 04/10/20 14:40 Blood Culture - Preliminary Blood No Growth after 24 hours Assessment and Plan Assessment: Cellulitis and tenosynovitis due to cat bite Anemia Atrial fibrillation Rheumatoid arthritis Probable COPD without acute exacerbation Drain has been removed today. Wound cultures showing gram-negative bacilli. Blood culture negative at 24 hours. Plans: Continue Unasyn 3 g IV every 6 hours. Tylenol as needed for fever or chills. Pain control with [place], morphine or Dilaudid as needed. Follow final wound cultures. Orthopedic surgery on board. Infectious disease following. Hemoglobin 9.9 decreased from 13.1 on admission. Likely dilutional. No active signs of bleeding. Plans: Discussed with orthopedic surgery, plans to restart Eliquis today. Will watch for any signs of bleeding. Plans: Appears rate controlled. Restart Eliquis today as above. Plans: Hold Plaquenil for 2 weeks. Continue prednisone by mouth. Plans: Albuterol neb as needed for shortness of breath and wheezing. Restart Synthroid. [Patient admitted for cellulitis and tenosynovitis due to cat bite. On IV antibiotics. Orthopedic surgery and ID on board. Wound cultures pending. Likely DC 1-2 days.]
[2020-04-12] MEDS ORDERED: FAMOTIDINE 20 MG TAB PO PRN (15:47)
--- NOTE | 2020-04-12 19:08 | P.PN ---
Subjective Progress Note Date: 04/12/20 The patient reports continued improvement in both pain and function. Denies interval issues or concerns. Objective - Vital Signs Vital signs: Vital Signs Temp 98.9 F 04/12/20 17:01 Pulse 86 04/12/20 17:01 Resp 16 04/12/20 17:01 BP 112/65 04/12/20 17:01 Pulse Ox 95 04/12/20 17:01 Intake & Output 04/12/20 04/12/20 04/13/20 06:59 18:59 06:59 Intake Total 880 Output Total 325 309 Balance -325 571 Intake: Oral 880 Output: Drainage 9 Right lower arm 9 Urine 325 300 Other: Voiding Method Bedside Commode Bedside Commode Diaper Diaper Incontinent Incontinent - Exam The dressings were removed these were moderately saturated with dried blood. The drain was removed easily (no fluid followed). No discrete fluctuance in the forearm or wrist. Still fairly well-demarcated erythema around the elbow. Improved edema distally. Good AROM/PROM of the fingers and wrist with mild, appropriate pain. - Labs CBC & Chem 7: 04/12/20 05:51 04/12/20 05:51 Labs: Abnormal Lab Results - Last 24 Hours (Table) 04/12/20 04/12/20 Range/Units 05:51 05:51 RBC 3.30 L (3.80-5.40) m/uL Hgb 9.9 L (11.4-16.0) gm/dL Hct 32.4 L (34.0-46.0) % MCHC 30.5 L (31.0-37.0) g/dL Plt Count 110 L (150-450) k/uL Chloride 111 H (98-107) mmol/L Carbon Dioxide 21 L (22-30) mmol/L BUN 19 H (7-17) mg/dL Calcium 8.0 L (8.4-10.2) mg/dL C-Reactive Protein 142.3 H (<10.0) mg/L Total Protein 5.8 L (6.3-8.2) g/dL Albumin 2.7 L (3.5-5.0) g/dL Microbiology - Last 24 Hours (Table) 04/10/20 14:40 Blood Culture - Preliminary Blood No Growth after 48 hours 04/10/20 19:05 Gram Stain - Preliminary Arm - Right Wound Culture - Preliminary Gram Neg Bacilli Assessment and Plan Assessment: 1. Post-op day #2 status post I&D of right forearm abscess and extensor tenosynovectomy secondary to cat bite injury 2. Prelim cultures show for gram neg bacilli (likely pasturella). Plan: Ms. Chapman is doing very well. New dressings were applied. These may be changed as needed if shadowed. Continuing active and passive mobilization of the digits to decrease the risk of adhesion formation. Continue as-needed pain management. Continue IV abx per ID appreciate Dr. Ferrer assistance. DC planning.
[2020-04-12] MEDS: APIXABAN 5 MG TAB PO SCH (20:15)
[2020-04-12] MEDS: NON FORMULARY DRUG (Mirabegron [Myrbetriq] 25 MG) PO SCH (20:52)
[2020-04-12] MEDS: MELATONIN 3 MG TABLET PO SCH (21:52)
[2020-04-13] MEDS: HYDROcodone/APAP 5-325MG 1 EACH TAB PO PRN ×6 (00:26→23:59)
[2020-04-13] MEDS: AMPICILLIN-SULBACTAM 3 GM in SODIUM CHLORIDE 0.9% 100 ML IVPB SCH ×5 (00:27→23:59)
--- NOTE | 2020-04-13 01:06 | PN ---
PROGRESS NOTE DATE OF SERVICE: 04/12/2020 REASON FOR FOLLOWUP: Right forearm cat bite and cellulitis. INTERVAL HISTORY: The patient is currently afebrile. The patient is breathing comfortably. Denies having any chest pain or shortness of breath or cough. No nausea or vomiting. Pain to the right forearm is currently controlled with pain medication. PHYSICAL EXAMINATION: Blood pressure 112/65 with the pulse of 89, temperature 98.5. She is 94% on room air. General description is an elderly female lying in bed in no distress. RESPIRATORY SYSTEM: Unlabored breathing, clear to auscultation anteriorly. HEART: S1, S2. Regular rate and rhythm. ABDOMEN: Soft, no tenderness. Right forearm still have significant swelling and redness. No drainage on the dressing. LABS: Hemoglobin 9.9, white count 8.9, creatinine 0.98. DIAGNOSTIC IMPRESSION AND PLAN: Patient with right forearm abscess, cat bite, status post extensive debridement and cultures are now showing Pasteurella. Patient is covered with Unasyn. We will try to arrange for Rocephin 2 grams daily along with oral Flagyl for at least 2 weeks in outpatient setting because of extensive cellulitis and continue with supportive care. MMODL / IJN: [id number] /
[2020-04-13] MEDS ORDERED: LEVOTHYROXINE 88 MCG TAB PO SCH (06:30)
[2020-04-13] MEDS: SYMBICORT 160-4.5 MCG INHALER INHALATION SCH ×2 (08:13→19:21)
[2020-04-13] MEDS: predniSONE 1 MG TAB PO SCH (08:33)
[2020-04-13] MEDS: APIXABAN 5 MG TAB PO SCH (08:33)
[2020-04-13 09:08] LABS: HCT 31.3 % (34.0-46.0); HGB 10.2 gm/dL (11.4-16.0); Hypochromasia Slight; MCH 31.7 pg (25.0-35.0); MCHC 32.5 g/dL (31.0-37.0); MCV 97.6 fL (80.0-100.0); Mean Platelet Volume 8.2; Platelet Count 121 k/uL (150-450); RDW 13.8 % (11.5-15.5); WBC 6.7 k/uL (3.8-10.6)
[2020-04-13 09:22] LABS: Prothrombin Time 10.4 sec (9.0-12.0)
[2020-04-13 09:25] LABS: Albumin 2.8 g/dL (3.5-5.0); Calcium 8.1 mg/dL (8.4-10.2); Total Protein 6.1 g/dL (6.3-8.2)
[2020-04-13 09:32] LABS: Potassium 4.9 mmol/L (3.5-5.1)
--- NOTE | 2020-04-13 09:50 | P.PN ---
Subjective Progress Note Date: 04/13/20 Principal diagnosis: Cat bite right forearm The patient is a very pleasant 79-year-old female who is status post I&D of the right forearm. Today is postop day #3. The patient states that she is feeling better everyday since surgery. She denies fever this morning. She has been working on range of motion of her fingers both active and passive. She is currently receiving Unasyn. Intraoperative cultures reveal Pasteurella multocida. She is scheduled for a midline or PICC tomorrow since she had her Eliquis today. We are recommending skilled rehab placement for IV antibiotics and mobility but family would like her to return to [facility] with home health care. Objective - Vital Signs Vital signs: Vital Signs Temp 98.2 F 04/13/20 08:00 Pulse 85 04/13/20 08:00 Resp 18 04/13/20 08:00 BP 116/72 04/13/20 08:00 Pulse Ox 97 04/13/20 08:00 Intake & Output 04/12/20 04/13/20 04/13/20 18:59 06:59 18:59 Intake Total 880 850 Output Total 309 450 100 Balance 571 400 -100 Intake: Intake, IV Titration 200 Amount Ampicillin-Sulbactam 3 gm 200 In Sodium Chloride 0.9% 100 ml @ 200 mls/hr IVPB Q6HR [facility] Rx#:[id number] Oral 880 650 Output: Drainage 9 Right lower arm 9 Urine 300 450 100 Other: Voiding Method Bedside Commode Bedside Commode Diaper Diaper Incontinent # Voids 1 1 - Exam The patient does not appear in acute distress. Alert and orientated x3. Dressing removed. There was a moderate amount of serosanginous drainage from the incision sites. Incision look ok. Sutures are in place. No fluctance noted in the forearm or wrist. Range of motion of the fingers have improved with mild pain. Moderate dorsal hand and finger edema present but improving. Sensation and circulatory status is intact. - Labs CBC & Chem 7: 04/13/20 08:49 04/13/20 08:49 Labs: Abnormal Lab Results - Last 24 Hours (Table) 04/13/20 04/13/20 Range/Units 08:49 08:49 RBC 3.20 L (3.80-5.40) m/uL Hgb 10.2 L (11.4-16.0) gm/dL Hct 31.3 L (34.0-46.0) % Plt Count 121 L (150-450) k/uL Sodium 136 L (137-145) mmol/L Chloride 110 H (98-107) mmol/L Carbon Dioxide 20 L (22-30) mmol/L BUN 20 H (7-17) mg/dL Calcium 8.1 L (8.4-10.2) mg/dL Total Protein 6.1 L (6.3-8.2) g/dL Albumin 2.8 L (3.5-5.0) g/dL Microbiology - Last 24 Hours (Table) 04/10/20 19:05 Gram Stain - Final Wrist - Right Wound Culture - Final Pasteurella multocida 04/10/20 19:05 Gram Stain - Final Arm - Right Wound Culture - Final Pasteurella multocida 04/10/20 14:40 Blood Culture - Preliminary Blood No Growth after 48 hours Assessment and Plan (1) Cat bite Current Visit: Yes Status: Acute Code(s): W55.01XA - BITTEN BY CAT, INITIAL ENCOUNTER SNOMED Code(s): 383946625 (2) Cellulitis of forearm, right Current Visit: Yes Status: Acute Code(s): L03.113 - CELLULITIS OF RIGHT UPPER LIMB SNOMED Code(s): 92551476 (3) Tenosynovitis of right forearm Current Visit: Yes Status: Acute Code(s): M65.9 - SYNOVITIS AND TENOSYNOVITIS, UNSPECIFIED SNOMED Code(s): 12891440 Plan: The clinical findings were discussed with the patient. The case was discussed with Dr. Stock. Continue IV antibiotics per infectious disease. We will await PICC or midline placement tomorrow. She will be discharged with Rocephin and Flagyl. We still recommend skill rehab placement for IV antibiotics and to increase mobility. We will continue to monitor the patient and make further recommendations as needed.
--- NOTE | 2020-04-13 10:58 | P.PN ---
Subjective Progress Note Date: 04/13/20 (delayed charting seen at 0845) Principal diagnosis: right arm swelling 71-year-old female with a history of rheumatoid arthritis on chronic immunosuppressive therapy with plaquenil and prednisone, autoimmune hepatitis, A. fib on anticoagulation with Eliquis, and multiple other comorbid conditions who presented to the ER due to pain and swelling in her right upper extremity. She was subsequently found to have Bite with surrounding cellulitis and possible tenosynovitis. She was taken to the OR by Dr. Huddleston on 04/10 for patient and debrided minutes. She had a drain placed. She has been weak and needing assistance. D/W Family/DPOA they do not want rehab. They are willing to provider increased services at [facility] as well as administer daily IV abx or drive her daily to appointments. Seen and examined at bedside. She denies chest pain, nausea, SOB, or diarrhea. Working on her hand daily. Still having some difficulty getting up and moving and requiring quite a bit of assistance. General: ill appearing, no distress, appears at stated age Derm: Edema of right hand and dressing in place, bruising of right arm , bruising of bilateral lower extremities, warm, dry Head: atraumatic, normocephalic, symmetric Eyes: EOMI, no lid lag, anicteric sclera Mouth: no lip lesion, mucus membranes moist Cardiovascular: S1S2 reg, no murmur, positive posterior tibial pulse bilateral, Lungs: Decreased bs bilateral no crackles, no accessory muscle use Abdominal: soft, nontender to palpation, no guarding, no appreciable organomegaly Ext: no gross muscle atrophy, trace bilateral lower extremity edema, no contractures Neuro: CN II-XI grossly intact, no focal neuro deficits Psych: Alert, oriented, appropriate affect Cellulitis and tenosynovitis due to cat bite -s/p I and D - unasyn - ID recs appreciated: 2 weeks of IV abx with rocephin and oral flagyl - hold eliquis today mid line in AM - pain control - ortho recs Thrombocytopenia and acute blood loss anemia - follow CBC - mild and likely reactive A fib - eliquis on hold for midline - not on rate controlling medications RA on immunosuppressive therapy - hold Plaquenil X 2 weeks - Prednisone - pain control Probable COPD without acute exacerbation - resume symbicort - as needed albuterol DVT prophylaxis: SCDs Discussed with: Patient, nursing Anticipated discharge: per ortho Anticipated discharge place: home with home health and increased private duty nursing. A total of 35 minutes was spent on the care of this complex patient more than 50% of the time was spent in counseling and care coordination. Objective - Vital Signs Vital signs: Vital Signs Temp 98.2 F 04/13/20 08:00 Pulse 85 04/13/20 08:00 Resp 18 04/13/20 08:00 BP 116/72 04/13/20 08:00 Pulse Ox 97 04/13/20 08:00 Intake & Output 04/12/20 04/13/20 04/13/20 18:59 06:59 18:59 Intake Total 880 850 Output Total 309 450 100 Balance 571 400 -100 Intake: Intake, IV Titration 200 Amount Ampicillin-Sulbactam 3 gm 200 In Sodium Chloride 0.9% 100 ml @ 200 mls/hr IVPB Q6HR [facility] Rx#:[id number] Oral 880 650 Output: Drainage 9 Right lower arm 9 Urine 300 450 100 Other: Voiding Method Bedside Commode Bedside Commode Diaper Diaper Incontinent # Voids 1 1 - Labs CBC & Chem 7: 04/13/20 08:49 04/13/20 08:49 Labs: Abnormal Lab Results - Last 24 Hours (Table) 04/13/20 04/13/20 Range/Units 08:49 08:49 RBC 3.20 L (3.80-5.40) m/uL Hgb 10.2 L (11.4-16.0) gm/dL Hct 31.3 L (34.0-46.0) % Plt Count 121 L (150-450) k/uL Sodium 136 L (137-145) mmol/L Chloride 110 H (98-107) mmol/L Carbon Dioxide 20 L (22-30) mmol/L BUN 20 H (7-17) mg/dL Calcium 8.1 L (8.4-10.2) mg/dL Total Protein 6.1 L (6.3-8.2) g/dL Albumin 2.8 L (3.5-5.0) g/dL Microbiology - Last 24 Hours (Table) 04/10/20 19:05 Gram Stain - Final Wrist - Right Wound Culture - Final Pasteurella multocida 04/10/20 19:05 Gram Stain - Final Arm - Right Wound Culture - Final Pasteurella multocida 04/10/20 14:40 Blood Culture - Preliminary Blood No Growth after 48 hours
[2020-04-13] MEDS: SODIUM CHLORIDE 0.9% 1,000 ML IV SCH (11:48)
[2020-04-13 19:40] VITALS: RESP 16
[2020-04-13] MEDS: NON FORMULARY DRUG (Mirabegron [Myrbetriq] 25 MG) PO SCH (19:59)
[2020-04-13] MEDS: MELATONIN 3 MG TABLET PO SCH (20:04)
--- NOTE | 2020-04-13 22:01 | PN ---
PROGRESS NOTE DATE OF SERVICE: 04/13/2020 REASON FOR FOLLOWUP: Right forearm cat bite cellulitis and abscess. INTERVAL HISTORY: The patient is currently afebrile. The patient is breathing comfortably. Overall pain and discomfort to the right forearm have currently decreased. The patient denies having any chest pain or cough. No abdominal pain or diarrhea. PHYSICAL EXAMINATION: Blood pressure 107/63 with a pulse of 86, temperature 99.1. She is 98% on room air. General description is an elderly female up in the chair in no distress. RESPIRATORY SYSTEM: Unlabored breathing. Clear to auscultation anteriorly. HEART: S1, S2. Regular rate and rhythm. ABDOMEN: Soft. No tenderness. LABS: Hemoglobin 10.3, white count 6.7, creatinine 1.0. DIAGNOSTIC IMPRESSION AND PLAN: Patient with a right forearm cat bite cellulitis and abscess, status post debridement. Plan is to continue with the Unasyn while inpatient. Finish therapy with Rocephin 2 grams daily and oral Flagyl for another 10 days. Continue with supportive care. MMODL / IJN: [id number] /
[2020-04-14] MEDS: HYDROcodone/APAP 5-325MG 1 EACH TAB PO PRN ×3 (05:22→14:16)
[2020-04-14] MEDS: LEVOTHYROXINE 88 MCG TAB PO SCH (05:34)
[2020-04-14] MEDS: AMPICILLIN-SULBACTAM 3 GM in SODIUM CHLORIDE 0.9% 100 ML IVPB SCH (05:34)
[2020-04-14 06:55] LABS: HCT 30.7 % (34.0-46.0); HGB 9.6 gm/dL (11.4-16.0); Hypochromasia Slight; MCH 30.2 pg (25.0-35.0); MCHC 31.2 g/dL (31.0-37.0); MCV 96.7 fL (80.0-100.0); Mean Platelet Volume 8.3; Platelet Count 128 k/uL (150-450); RBC 3.18 m/uL (3.80-5.40); RDW 14.1 % (11.5-15.5); WBC 5.2 k/uL (3.8-10.6)
[2020-04-14 07:08] LABS: Calcium 8.1 mg/dL (8.4-10.2); Potassium 4.5 mmol/L (3.5-5.1)
[2020-04-14] MEDS: SYMBICORT 160-4.5 MCG INHALER INHALATION SCH (08:22)
--- NOTE | 2020-04-14 08:41 | P.DS ---
Providers Date of admission: 04/10/20 15:35 Expected date of discharge: 04/14/20 Attending physician: Esdras Stock DO Consults: 04/10/20 15:52 Consult Physician Stat Consulting Provider: Leilani Erickson Consult Reason/Comments: Med mgmt, cat bite, tenosynovitis Do you want consulting provider notified?: Yes 04/10/20 19:30 Consult Physician Routine Consulting Provider: Richardson Condon Consult Reason/Comments: right forearm abscess/extensor tenosynovitis s/p cat bite Do you want consulting provider notified?: Yes, Notify in am Primary care physician: Vitaly Chambers - Discharge Diagnosis(es) (1) Cat bite Current Visit: Yes Status: Acute (2) Cellulitis of forearm, right Current Visit: Yes Status: Acute (3) Tenosynovitis of right forearm Current Visit: Yes Status: Acute Hospital Course: The patient is a very pleasant 79-year-old female who presented to the hospital with right arm pain and swelling after sustaining a cat bite at home. She under went an I&D of the right forearm on 04/10/2020. Today is postop day #4. The patient states that she is feeling better everyday since surgery. She denies fever this morning. She has been working on range of motion of her fingers both active and passive. She is currently receiving Unasyn. Intraoperative cultures reveal Pasteurella multocida. On the day of discharge, the patient does not appear in acute distress. Alert and orientated x3. Dressing removed. There was a small amount of serosanginous drainage from the incision sites. Incisions look ok. Sutures are in place. No fluctance noted in the forearm or wrist. Range of motion of the fingers have improved with mild pain. Moderate dorsal hand and finger edema present but improving. Erythema on the proximal forearm and elbow have continue to improve. Sensation and circulatory status is intact. The patient will be discharge home today with homecare for dressing changes and IV antibiotic therapy. She will follow up in our office next week. Pertinent Studies: Laboratory Tests 04/14/20 04/14/20 06:25 06:25 WBC 5.2 RBC 3.18 L Hgb 9.6 L Hct 30.7 L Plt Count 128 L BUN 26 H Creatinine 1.09 H Patient Condition at Discharge: Stable Plan - Discharge Summary Discharge Rx Participant: Yes New Discharge Prescriptions: New HYDROcodone/APAP 5-325MG [[place] 5] 1 each PO Q4-6H PRN #30 tab PRN Reason: Pain metroNIDAZOLE [Flagyl] 500 mg PO Q8HR #30 tab cefTRIAXone [Rocephin] 2 gm IVPB Q24H #10 bag Acetaminophen Tab [Tylenol] 650 mg PO Q6HR PRN tab PRN Reason: Mild Pain Or Fever > 100.5 Continue Levothyroxine Sodium [Synthroid] 88 mcg PO SUTUWETHSA Levothyroxine Sodium [Synthroid] 132 mcg PO MOFR predniSONE 1 mg PO DAILY tab HYDROcodone/APAP 5-325MG [[place] 5-325] 1 tab PO BID Apixaban [Eliquis] 5 mg PO BID Mirabegron [Myrbetriq] 25 mg PO HS Cholecalciferol [Vitamin D3 (25 Mcg = 1000 Iu)] 1,000 unit PO HS Budesonide-Formot 160-4.5 Mcg [Symbicort 160-4.5 Mcg Inhaler] 2 puff INHALATION RT-BID PRN PRN Reason: Shortness Of Breath Famotidine 20 mg PO BID PRN PRN Reason: gerds Discontinued Hydroxychloroquine Sulfate [Plaquenil] 200 mg PO HS Discharge Medication List Levothyroxine Sodium [Synthroid] 88 mcg PO SUTUWETHSA 05/26/15 [History] Levothyroxine Sodium [Synthroid] 132 mcg PO MOFR 05/26/15 [History] predniSONE 1 mg PO DAILY tab 09/04/15 [Rx] Apixaban [Eliquis] 5 mg PO BID 09/15/18 [History] HYDROcodone/APAP 5-325MG [[place] 5-325] 1 tab PO BID 09/15/18 [History] Mirabegron [Myrbetriq] 25 mg PO HS 09/15/18 [History] Budesonide-Formot 160-4.5 Mcg [Symbicort 160-4.5 Mcg Inhaler] 2 puff INHALATION RT-BID PRN 04/10/20 [History] Cholecalciferol [Vitamin D3 (25 Mcg = 1000 Iu)] 1,000 unit PO HS 04/10/20 [History] Famotidine 20 mg PO BID PRN 04/10/20 [History] Acetaminophen Tab [Tylenol] 650 mg PO Q6HR PRN tab 04/14/20 [Rx] HYDROcodone/APAP 5-325MG [[place] 5] 1 each PO Q4-6H PRN #30 tab 04/14/20 [Rx] cefTRIAXone [Rocephin] 2 gm IVPB Q24H #10 bag 04/14/20 [Rx] metroNIDAZOLE [Flagyl] 500 mg PO Q8HR #30 tab 04/14/20 [Rx] Follow up Appointment(s)/Referral(s): Vitaly Chambers MD [Primary Care Provider] - 1-2 days [facility], [NON-STAFF] - 1-2 Days Esdras Stock DO [Medical Doctor] - 1 Week [facility], [REFERRING] - 1 Week Richardson Condon MD [STAFF PHYSICIAN] - 1 Week Patient Instructions/Handouts: Animal Bite (ED) Activity/Diet/Wound Care/Special Instructions: Keep incision clean and dry. May shower over arm. Allow to dry and apply 4x4s, ABD (if needed), and gauze wrap at least daily and as needed for drainage. Continue finger and hand range of motion Elevate hand to prevent swelling Antibiotics per infectious disease Follow up with Dr. Stock in 1 week [facility] with any questions or concerns, . Hold Hydroxychlorquine for 2 weeks. Discharge Disposition: HOME WITH HOME HEALTH SERVICES
[2020-04-14 08:47] VITALS: TEMP 98.2
[2020-04-14] MEDS: predniSONE 1 MG TAB PO SCH ×2 (09:19→09:31)
[2020-04-14 12:28] VITALS: BP 136/80; PULSE 83
--- NOTE | 2020-04-14 13:03 | PN ---
PROGRESS NOTE DATE OF SERVICE: 04/14/2020 REASON FOR FOLLOWUP: Right forearm cat bite cellulitis and abscess. INTERVAL HISTORY: Patient is currently afebrile, patient is breathing comfortably. Denies having any chest pain. No shortness of breath or cough. Overall pain and discomfort of the right arm has improved. No vomiting or diarrhea. PHYSICAL EXAMINATION: Blood pressure 126/62 with a pulse of 80, temperature 98.2, she is 97% on room air. General description is an elderly female, up in the bed in no distress. RESPIRATORY SYSTEM: Unlabored breathing, clear to auscultation anteriorly. HEART: S1, S2. Regular rate and rhythm. ABDOMEN: Soft, no tenderness. Right forearm has some swelling, no significant redness or drainage. LABS: Hemoglobin 9.8, white count of 5.2. DIAGNOSTIC IMPRESSION AND PLAN: Patient with right forearm abscess and cellulitis from cat bite. Culture positive . The patient to finish therapy with Rocephin 2 g daily along with oral Flagyl for 10 days and close outpatient followup. MMODL / IJN: [id number] /
--- NOTE | 2020-04-14 13:41 | P.PN ---
Subjective Progress Note Date: 04/14/20 Principal diagnosis: Right upper extremity cellulitis Patient was seen and examined. No acute events overnight. Patient reports significant improvement in her right upper extremity swelling and pain over the last couple of days. She reports improved flexibility in her fingers and wrist. Erythema has improved. Patient denies any chest pain, shortness of breath or palpitations. No nausea or vomiting. No fever or chills. Objective - Vital Signs Vital signs: Vital Signs Temp 98.2 F 04/14/20 11:59 Pulse 83 04/14/20 11:59 Resp 16 04/14/20 11:59 BP 136/80 04/14/20 11:59 Pulse Ox 95 04/14/20 11:59 Intake & Output 04/13/20 04/14/20 04/14/20 18:59 06:59 18:59 Intake Total 400 480 Output Total 380 500 150 Balance -380 -100 330 Intake: Intake, IV Titration 200 Amount Ampicillin-Sulbactam 3 gm 200 In Sodium Chloride 0.9% 100 ml @ 200 mls/hr IVPB Q6HR [facility] Rx#:[id number] Oral 200 480 Output: Urine 380 500 150 Other: Voiding Method Bedside Commode Bedside Commode Bedside Commode # Voids 1 - Exam General: [non toxic], [no distress], [appears at stated age] Derm: [warm], [dry] Head: [atraumatic], [normocephalic], [symmetric] Eyes: [EOMI], [no lid lag], [anicteric sclera] Mouth: [no lip lesion], [mucus membranes moist] Cardiovascular: [S1S2 irregular], [no murmur], [positive DP pulse bilateral], Lungs: [Decreased breath sounds bilateral], [no rhonchi, no rales] , [no accessory muscle use] Abdominal: [soft], [ nontender to palpation], [no guarding], [no appreciable organomegaly] Ext: [no gross muscle atrophy], [no edema], [no contractures], [right upper extremity wrapped dressing clean dry and intact] Neuro: [no focal neuro deficits] Psych: [Alert], [oriented], [appropriate affect] - Labs CBC & Chem 7: 04/14/20 06:25 04/14/20 06:25 Labs: Abnormal Lab Results - Last 24 Hours (Table) 04/14/20 04/14/20 Range/Units 06:25 06:25 RBC 3.18 L (3.80-5.40) m/uL Hgb 9.6 L (11.4-16.0) gm/dL Hct 30.7 L (34.0-46.0) % Plt Count 128 L (150-450) k/uL Sodium 136 L (137-145) mmol/L Chloride 112 H (98-107) mmol/L Carbon Dioxide 19 L (22-30) mmol/L BUN 26 H (7-17) mg/dL Creatinine 1.09 H (0.52-1.04) mg/dL Calcium 8.1 L (8.4-10.2) mg/dL Microbiology - Last 24 Hours (Table) 04/10/20 14:40 Blood Culture - Preliminary Blood No Growth after 72 hours Assessment and Plan Assessment: Cellulitis and tenosynovitis due to cat bite Anemia Atrial fibrillation Rheumatoid arthritis Probable COPD without acute exacerbation Wound cultures showing Pasteurella. Blood culture negative at 72 hours. Plans: Plans for DC home with 10 more days of Rocephin and Flagyl. Tylenol as needed for fever or chills. Pain control with Nixa, morphine or Dilaudid as needed. Orthopedic surgery on board. Infectious disease following. Hemoglobin 9.6 decreased from 13.1 on admission. Likely dilutional but hemoglobin mas been stable over the last few days. No active signs of bleeding. Plans: Continue Eliquis. Watch for any signs of bleeding. Plans: Appears rate controlled. Restart Eliquis today as above. Plans: Hold Plaquenil for 2 weeks. Continue prednisone by mouth. Plans: Albuterol neb as needed for shortness of breath and wheezing. Restart Synthroid. [Patient admitted for cellulitis and tenosynovitis due to cat bite. Wound culture showing Pasteurella. Plans for IV antibiotics at home. Cleared for DC home from medical perspective.]
== END 2020-04-14 14:45 | disposition home health service (06) | DRG 501 ==
LOC: EC 12:56 → 6PED 15:35
PROVIDERS: ADMIT Orthopaedic Surgery; ATTEND Orthopaedic Surgery
PROC: 0KB90ZZ Excision of Right Lower Arm and Wrist Muscle, Open Approach (ICD-10-PCS; principal; 2020-04-10 16:45)
PROC: 01B60ZZ Excision of Radial Nerve, Open Approach (ICD-10-PCS; principal; 2020-04-10 16:45)
PROC: 0LB50ZZ Excision of Right Lower Arm and Wrist Tendon, Open Approach (ICD-10-PCS; principal; 2020-04-10 16:45)
PROC: 05HF33Z Insertion of Infusion Device into Left Cephalic Vein, Percutaneous Approach (ICD-10-PCS; 2020-04-13 18:50)
DX: M65.131 Other infective (teno)synovitis, right wrist (principal); L03.113 Cellulitis of right upper limb; L02.413 Cutaneous abscess of right upper limb; A28.0 Pasteurellosis; D62 Acute posthemorrhagic anemia; Z11.59 Encounter for screening for other viral diseases; D69.6 Thrombocytopenia, unspecified; D63.1 Anemia in chronic kidney disease; M32.9 Systemic lupus erythematosus, unspecified; N18.3 Chronic kidney disease, stage 3 (moderate); J44.9 Chronic obstructive pulmonary disease, unspecified; M35.00 Sjogren syndrome, unspecified; M06.9 Rheumatoid arthritis, unspecified; K21.9 Gastro-esophageal reflux disease without esophagitis; I48.91 Unspecified atrial fibrillation; M19.90 Unspecified osteoarthritis, unspecified site; G47.33 Obstructive sleep apnea (adult) (pediatric); E03.9 Hypothyroidism, unspecified; M81.0 Age-related osteoporosis without current pathological fracture; N39.3 Stress incontinence (female) (male); Z90.49 Acquired absence of other specified parts of digestive tract; Z87.19 Personal history of other diseases of the digestive system; Z86.718 Personal history of other venous thrombosis and embolism; W55.01XA Bitten by cat, initial encounter; Z79.890 Hormone replacement therapy; Z79.899 Other long term (current) drug therapy; Z79.01 Long term (current) use of anticoagulants; Z79.51 Long term (current) use of inhaled steroids; Z79.52 Long term (current) use of systemic steroids; Z87.440 Personal history of urinary (tract) infections; Z85.72 Personal history of non-Hodgkin lymphomas; Z92.21 Personal history of antineoplastic chemotherapy; Z98.890 Other specified postprocedural states; Z98.42 Cataract extraction status, left eye; Z98.41 Cataract extraction status, right eye; Z91.041 Radiographic dye allergy status; Z82.61 Family history of arthritis
CPT/HCPCS: 36410; 36415; 76937; 80048; 80053; 83605; 85025; 85027; 85610; 85652; 85730; 86140; 87040; 87070; 87205; 90471; 90715; 94640; 96361; 96365; 96375; 99285

== ENCOUNTER → 2020-07-01 | Outpatient (CLI) | payer MEDICARE | END | disposition home or self-care (01) | LOC: LABWHC1 12:00 | PROVIDERS: ATTEND Internal Medicine Infectious Disease | DX: Z53.9 Procedure and treatment not carried out, unspecified reason (principal) ==

== ENCOUNTER → 2020-07-16 | Outpatient (CLI) | payer MEDICARE ==
--- NOTE | 2020-07-17 13:41 | MM ---
Reason for exam: screening (asymptomatic). Last mammogram was performed 1 year and 4 months ago. History: Patient is postmenopausal, history of other cancer, and is nulliparous. Benign left mammotome panel of the left breast, December 01, 2006. Physical Findings: A clinical breast exam by your physician is recommended on an annual basis and results should be correlated with mammographic findings. MG Screening Mammo w CAD Bilateral CC and MLO view(s) were taken. Prior study comparison: March 13, 2019, bilateral MG 3d screening mammo w/cad. March 05, 2018, bilateral MG screening mammo w CAD. The breast tissue is heterogeneously dense. This may lower the sensitivity of mammography. There are benign appearing round vascular calcifications bilaterally. There is no discrete abnormality. No significant changes when compared with prior studies. ASSESSMENT: Benign, BI-RAD 2 RECOMMENDATION: Routine screening mammogram of both breasts in 1 year.
== END | disposition home or self-care (01) ==
LOC: RADMAMWWP 13:20
PROVIDERS: ATTEND Obstetrics & Gynecology
DX: Z12.31 Encounter for screening mammogram for malignant neoplasm of breast (principal)
CPT/HCPCS: 77067

== ENCOUNTER → 2020-07-16 | Outpatient (CLI) | payer MEDICARE ==
[2020-07-16 15:29] LABS: HCT 39.2 % (34.0-46.0); HGB 13.1 gm/dL (11.4-16.0); MCH 32.7 pg (25.0-35.0); MCHC 33.3 g/dL (31.0-37.0); MCV 98.2 fL (80.0-100.0); Mean Platelet Volume 7.9; Platelet Count 171 k/uL (150-450); RBC 3.99 m/uL (3.80-5.40); RDW 13.8 % (11.5-15.5)
== END | disposition home or self-care (01) ==
LOC: LABWHC1 13:49
PROVIDERS: ATTEND Internal Medicine
DX: R19.7 Diarrhea, unspecified (principal)
CPT/HCPCS: 36415; 84443; 85027

== ENCOUNTER 2020-07-20 07:18 | Emergency (ER) | payer MEDICARE ==
[~2020-07-20 07:18] MED LIST: HUMAN PROTHROMBIN COMPLX 500 UNIT/16 ML VIAL IV ONE
[2020-07-20] MEDS ORDERED: SODIUM CHLORIDE 0.9% 1,000 ML IV STA (07:47)
--- NOTE | 2020-07-20 08:02 | ED ---
General Adult HPI - General Chief complaint: Fall Stated complaint: Fall Time Seen by Provider: 07/20/20 07:20 Source: patient, EMS, RN notes reviewed, old records reviewed Mode of arrival: EMS Limitations: no limitations - History of Present Illness Initial comments: This is a 80-year-old female who presents emergency Department stating she's been having nausea and vomiting and diarrhea for the last 4 days. Patient states that as of yesterday afternoon she started having blood in her stool. Patient states she is on eliquis for atrial fibrillation. Patient states since that she's gotten weaker and weaker. Patient states she was on the toilet h aving diarrhea when she got up to go back to bed she became so weak she had to sit down on the bed. Patient states from there she slid off the bed onto her knees. Patient states she did not injure herself she denies any head injury patient denies any neck pain patient denies any neck injury. Patient denies any injury of any extremity. Patient denies any chest pain or back pain. Patient denies any difficulty breathing shortness breath per patient denies any recent fever chills or cough. - Related Data Home Medications Medication Instructions Recorded Confirmed Levothyroxine Sodium [Synthroid] 88 mcg PO SUTUWETHSA 05/26/15 07/20/20 Levothyroxine Sodium [Synthroid] 132 mcg PO MOFR 05/26/15 07/20/20 Apixaban [Eliquis] 5 mg PO BID 09/15/18 07/20/20 HYDROcodone/APAP 5-325MG [[place] 1 tab PO BID 09/15/18 07/20/20 5-325] Mirabegron [Myrbetriq] 25 mg PO HS 09/15/18 07/20/20 Budesonide-Formot 160-4.5 Mcg 2 puff INHALATION RT-BID PRN 04/10/20 07/20/20 [Symbicort 160-4.5 Mcg Inhaler] Cholecalciferol [Vitamin D3 (25 1,000 unit PO HS 04/10/20 07/20/20 Mcg = 1000 Iu)] Famotidine 20 mg PO BID PRN 04/10/20 07/20/20 Cholestyramine (with Sugar) 4 gm PO BID 07/20/20 07/20/20 [Questran] Previous Rx's Medication Instructions Recorded predniSONE 1 mg PO DAILY tab 09/04/15 Acetaminophen Tab [Tylenol] 650 mg PO Q6HR PRN tab 04/14/20 Allergies Allergy/AdvReac Type Severity Reaction Status Date / Time Iodinated Contrast Media Allergy Rash/Hives Verified 07/20/20 08:46 [Iodinated Contrast Media - IV Dye] Review of Systems ROS Statement: Those systems with pertinent positive or pertinent negative responses have been documented in the HPI. ROS Other: All systems not noted in ROS Statement are negative. Past Medical History Past Medical History: Atrial Fibrillation, Asthma, Cancer, Deep Vein Thrombosis (DVT), GERD/Reflux, Osteoarthritis (OA), Renal Disease, Rheumatoid Arthritis (RA), Sleep Apnea/CPAP/BIPAP, Thyroid Disorder Additional Past Medical History / Comment(s): Autoimmune hepatits (1994), sjogr ens, lupus, 2009 DVT R calf, recurrent R lower leg ulcers-seen in [facility] and healed at this time, TOMAS with device used in past then had some bacterial infections and stopped using but is now in process of possible getting another device, osteoporosis, non-Hodgkin's B lymphoma - left thigh January 2015 status post 2 chemo treatments, chronic kidney disease stage III, UTI with sepsis, chronic anemia, hypothyroid, stress incontinence. History of Any Multi-Drug Resistant Organisms: None Reported Past Surgical History: Appendectomy, Breast Surgery, Cholecystectomy, Tonsillectomy Additional Past Surgical History / Comment(s): L breast benign biopsy, paola cataracts, biopsy left thigh mass, BMA, liver bx, lip bx, wound right [facility] status post multiple debridements Past Anesthesia/Blood Transfusion Reactions: No Reported Reaction Past Psychological History: No Psychological Hx Reported Smoking Status: Never smoker Past Alcohol Use History: None Reported Past Drug Use History: None Reported - Past Family History Sister(s) Family Medical History: Osteoarthritis (OA) Additional Family Medical History / Comment(s): Severe arthritis. Mother Family Medical History: Osteoarthritis (OA) Additional Family Medical History / Comment(s): Severe arthritis. General Exam - General Exam Comments Initial Comments: GENERAL: Patient is well-developed and well-nourished. Patient is nontoxic and well- hydrated and is in mild distress. Patient is very lethargic ENT: Neck is soft and supple. No significant lymphadenopathy is noted. Oropharynx is clear. Moist mucous membranes. Neck has full range of motion without eliciting any pain. EYES: The sclera were anicteric and conjunctiva were pink and moist. Extraocular movements were intact and pupils were equal round and reactive to light. Eyelids were unremarkable. PULMONARY: Unlabored respirations. Good breath sounds bilaterally. No audible rales rhonchi or wheezing was noted. CARDIOVASCULAR: There is a regular rate and rhythm without any murmurs gallops or rubs. ABDOMEN: Soft and nontender with normal bowel sounds. SKIN: Skin is clear with no lesions or rashes and otherwise unremarkable. NEUROLOGIC: Patient is alert and oriented 4. Cranial nerves II through XII are grossly intact. Motor and sensory are also intact. Normal speech, volume is somewhat diminished. Smile is symmetrical MUSCULOSKELETAL: Normal extremities with adequate strength and full range of motion. No lower extremity swelling or edema. No calf tenderness. LYMPHATICS: No significant lymphadenopathy is noted PSYCHIATRIC: Normal psychiatric evaluation. Limitations: no limitations Course Vital Signs 07/20/20 07/20/20 07/20/20 07:28 08:00 08:30 Temperature 96.9 F L Pulse Rate 66 74 74 Respiratory 16 18 17 Rate Blood Pressure 180/102 180/102 180/107 O2 Sat by Pulse 93 L 97 95 Oximetry 07/20/20 07/20/20 07/20/20 08:45 09:19 09:24 Temperature 97 F L Pulse Rate 64 77 75 Respiratory 15 14 Rate Blood Pressure 172/76 166/77 154/76 O2 Sat by Pulse 98 98 Oximetry Medical Decision Making - Medical Decision Making EKG shows sinus rhythm with occasional PAC at 67 bpm WI interval 166 years 144 Q-T intervals 44 QTC is 511. Patient's EKG shows no ST segment elevation or depression shows a right bundle branch block. I spoke with the niece who is the power of slice plug cutter operator helper and her in they stated the patient was a no code but would want lifesaving surgery. Currently want the patient on a ventilator. I spoke with Dr. Rebollar and he wanted the patient get a CT angiogram of the head and neck and then he would arrange transfer to [place]. Patient's C-spine was negative. Patient's CT angiogram of the head and neck was not read by the time the patient was transferred. Patient did get case center while in the emergency department. I also started a Cardene. - Lab Data Result diagrams: 07/20/20 07:52 07/20/20 07:52 Lab Results 07/20/20 07/20/20 07/20/20 Range/Units 07:52 07:52 07:52 WBC 7.8 (3.8-10.6) k/uL RBC 4.03 (3.80-5.40) m/uL Hgb 12.5 (11.4-16.0) gm/dL Hct 39.6 (34.0-46.0) % MCV 98.2 (80.0-100.0) fL MCH 31.1 (25.0-35.0) pg MCHC 31.7 (31.0-37.0) g/dL RDW 13.6 (11.5-15.5) % Plt Count 186 (150-450) k/uL Neutrophils % 82 % Lymphocytes % 8 % Monocytes % 7 % Eosinophils % 1 % Basophils % 0 % Neutrophils # 6.4 (1.3-7.7) k/uL Lymphocytes # 0.6 L (1.0-4.8) k/uL Monocytes # 0.5 (0-1.0) k/uL Eosinophils # 0.1 (0-0.7) k/uL Basophils # 0.0 (0-0.2) k/uL PT 9.9 (9.0-12.0) sec INR 0.9 (<1.2) APTT 21.4 L (22.0-30.0) sec Sodium 141 (137-145) mmol/L Potassium 3.6 (3.5-5.1) mmol/L Chloride 112 H (98-107) mmol/L Carbon Dioxide 20 L (22-30) mmol/L Anion Gap 9 mmol/L BUN 37 H (7-17) mg/dL Creatinine 1.35 H (0.52-1.04) mg/dL Est GFR (CKD-EPI)AfAm 43 (>60 ml/min/1.73 sqM) Est GFR (CKD-EPI)NonAf 38 (>60 ml/min/1.73 sqM) Glucose 204 H (74-99) mg/dL Calcium 9.5 (8.4-10.2) mg/dL Magnesium 1.9 (1.6-2.3) mg/dL Total Bilirubin 0.5 (0.2-1.3) mg/dL AST 27 (14-36) U/L ALT 16 (4-34) U/L Alkaline Phosphatase 117 (38-126) U/L Troponin I (0.000-0.034) ng/mL Total Protein 8.3 H (6.3-8.2) g/dL Albumin 3.9 (3.5-5.0) g/dL Blood Type Blood Type Confirm Blood Type Recheck Bld Type Recheck Status Antibody Screen Spec Expiration Date 07/20/20 07/20/20 07/20/20 Range/Units 07:52 08:04 08:05 WBC (3.8-10.6) k/uL RBC (3.80-5.40) m/uL Hgb (11.4-16.0) gm/dL Hct (34.0-46.0) % MCV (80.0-100.0) fL MCH (25.0-35.0) pg MCHC (31.0-37.0) g/dL RDW (11.5-15.5) % Plt Count (150-450) k/uL Neutrophils % % Lymphocytes % % Monocytes % % Eosinophils % % Basophils % % Neutrophils # (1.3-7.7) k/uL Lymphocytes # (1.0-4.8) k/uL Monocytes # (0-1.0) k/uL Eosinophils # (0-0.7) k/uL Basophils # (0-0.2) k/uL PT (9.0-12.0) sec INR (<1.2) APTT (22.0-30.0) sec Sodium (137-145) mmol/L Potassium (3.5-5.1) mmol/L Chloride (98-107) mmol/L Carbon Dioxide (22-30) mmol/L Anion Gap mmol/L BUN (7-17) mg/dL Creatinine (0.52-1.04) mg/dL Est GFR (CKD-EPI)AfAm (>60 ml/min/1.73 sqM) Est GFR (CKD-EPI)NonAf (>60 ml/min/1.73 sqM) Glucose (74-99) mg/dL Calcium (8.4-10.2) mg/dL Magnesium (1.6-2.3) mg/dL Total Bilirubin (0.2-1.3) mg/dL AST (14-36) U/L ALT (4-34) U/L Alkaline Phosphatase (38-126) U/L Troponin I <0.012 (0.000-0.034) ng/mL Total Protein (6.3-8.2) g/dL Albumin (3.5-5.0) g/dL Blood Type O Positive Blood Type Confirm O Positive Blood Type Recheck No Previous Record Bld Type Recheck Status CABO Indicated Antibody Screen NEGATIVE Spec Expiration Date 07/23/2020 - 230 Critical Care Time Critical Care Time: Yes Total Critical Care Time: 45 Disposition Clinical Impression: Hemorrhage of cerebellum Disposition: OTHER INSTITUTION NOT DEFINED Referrals: Giuseppe Lopez MD [Primary Care Provider] - 1-2 days Time of Disposition: 09:28 - Out of Hospital Transfer - Req. Specs Out of Hospital Transfer - Requested Specifics: Other Emergency Center ([facility])
[2020-07-20 08:10] LABS: Basophils % (A) 0 %; Eosinophils # (A) 0.1 k/uL (0-0.7); Eosinophils % (A) 1 %; HCT 39.6 % (34.0-46.0); HGB 12.5 gm/dL (11.4-16.0); Lymphocytes # (A) 0.6 k/uL (1.0-4.8); Lymphocytes % (A) 8 %; MCH 31.1 pg (25.0-35.0); MCHC 31.7 g/dL (31.0-37.0); MCV 98.2 fL (80.0-100.0); Mean Platelet Volume 8.2; Monocytes # (A) 0.5 k/uL (0-1.0); Monocytes % (A) 7 %; Neutrophils # (A) 6.4 k/uL (1.3-7.7); Neutrophils % (A) 82 %; Platelet Count 186 k/uL (150-450); RBC 4.03 m/uL (3.80-5.40); RDW 13.6 % (11.5-15.5); WBC 7.8 k/uL (3.8-10.6)
[2020-07-20] MEDS ORDERED: Kcentra PER PHARMACY 1 EACH MISC MISCELLANE PRN (08:19)
[2020-07-20 08:24] LABS: INR 0.9 (<1.2); Prothrombin Time 9.9 sec (9.0-12.0)
--- NOTE | 2020-07-20 08:28 | XR ---
EXAMINATION TYPE: XR chest 1V portable DATE OF EXAM: 07/20/2020 COMPARISON: Chest x-ray November 07, 2017 HISTORY: Following injury with weakness. Chest pain. TECHNIQUE: Single AP portable frontal view of the chest is obtained. FINDINGS: Diminished inspiration with reticular interstitial changes and new left hilar and basilar opacities. The cardiac silhouette size is enlarged. The osseous structures are demineralized. Adva nced degenerative change bilateral glenohumeral joints. IMPRESSION: Cardiomegaly and chronic parenchymal changes with developing left mid to lower lung acut e infiltrate and/or atelectasis felt present.
[2020-07-20 08:29] LABS: Albumin 3.9 g/dL (3.5-5.0); Calcium 9.5 mg/dL (8.4-10.2); Magnesium 1.9 mg/dL (1.6-2.3); Potassium 3.6 mmol/L (3.5-5.1); Total Bilirubin 0.5 mg/dL (0.2-1.3); Total Protein 8.3 g/dL (6.3-8.2)
[2020-07-20] MEDS ORDERED: niCARdipine 20 MG in SODIUM CHLORIDE 0.9% 192 ML IV SCH (08:30)
[2020-07-20] MEDS ORDERED: HUMAN PROTHROMBIN COMPLX IV ONE (08:30)
--- NOTE | 2020-07-20 08:39 | CT ---
EXAMINATION TYPE: CT brain wo con DATE OF EXAM: 07/20/2020 HISTORY: Head trauma. Fall out of bed, hit right frontal region. Automated Exposure Control for Dose Reduction was Utilized. TECHNIQUE: CT scan of the head is performed without contrast. COMPARISON: None FINDINGS: There is a large 3.1 x 6.3 x 3.6 cm intraparenchymal hemorrhage of the left cerebellum (AP, transvers e, and craniocaudal) which is causing 10 mm of leftward midline shift of the left cerebellar hemisphe re, with mass effect and leftward shift on the fourth ventricle, as well as significant mass effect o n the medulla and crowding at the foramen magnum. The left tonsil is projecting 1.98 mm below the for amen magnum. There may be small intraventricular hemorrhage within the fourth ventricle (201:20). No extra-axial fluid collection. Tiny right frontal extracranial soft tissue hematoma. Bones are intact. The globes are grossly symmet tyree with cataract postsurgical changes. Visualized sinuses and mastoid air cells are clear. IMPRESSION: 1. Large 3.1 x 6.3 x 3.6 cm intraparenchymal hemorrhage of the left cerebellum. 10 mm of leftward mi dline shift of the left cerebellar hemisphere, with significant mass effect and leftward shift of the fourth ventricle, and significant mass effect on the medulla. There is crowding at the foramen magnu m with 2 mm of left tonsillar inferior displacement. Findings are concerning for impending tonsillar herniation. 2. Questionable small focus of intraventricular hemorrhage within the fourth ventricle. Dr. Gladys Hyde discussed findings with Dr. Murali Shafer via the phone on 07/20/2020 at 8:29 A M, and results were acknowledged.
[2020-07-20] MEDS ORDERED: methylPREDNISolone SOD SUCCI 125 MG/2 ML VIAL IV STA (08:46)
[2020-07-20] MEDS ORDERED: diphenhydrAMINE 50 MG/ML 1 ML VIAL IVP STA (08:46)
[2020-07-20] MEDS ORDERED: FAMOTIDINE 20 MG/2 ML VIAL IV STA (08:46)
[2020-07-20 08:55] LABS: Partial Thromboplastin Time 21.4 sec (22.0-30.0)
--- NOTE | 2020-07-20 08:58 | CT ---
EXAMINATION TYPE: CT cervical spine wo con DATE OF EXAM: 07/20/2020 COMPARISON: None HISTORY: Fall CT DLP: 301.3 mGycm Automated exposure control for dose reduction was used. TECHNIQUE: CT scan of the cervical spine is obtained without contrast, axial images are obtained, sa gittal and coronal reformatted images are also reviewed. FINDINGS: Cervical spine is visualized in its entirety from C1 through upper thoracic levels. No acut e fracture or dislocation. Increased cervical lordosis and thoracic kyphosis. Degenerative changes. Prevertebral soft tissue appears within normal limits. The C1-C2 articulation is within normal limit s on the coronal images. Emphysematous changes of the lung apices. IMPRESSION: No acute fracture or dislocation evident in the cervical spine.
[2020-07-20 09:20] VITALS: RESP 14; TEMP 97
[2020-07-20 09:24] VITALS: BP 154/76; PULSE 75
--- NOTE | 2020-07-20 09:46 | CT ---
EXAMINATION TYPE: CT angio head neck DATE OF EXAM: 07/20/2020 HISTORY: cerebellum bleed COMPARISON: 07/20/2020 CT DLP: 322.2 mGycm. Automated Exposure Control for Dose Reduction was Utilized. TECHNIQUE: CTA scan of the neck is performed with IV Contrast, patient injected with 65 mL of Isovue 370, axial images are obtained, coronal and sagittal reformatted images are reviewed. Three-D recons tructed images are created on an independent workstation and reviewed. FINDINGS: Emphysematous changes involving the lung apices. There is a large hemorrhage involving the posterior fossa measuring 6.3 cm with displacement of the fourth ventricle. Intraparenchymal hemorrhage within the cerebellum. Degenerative and nonspecific white matter changes are noted. Intracranial vasculature or appears vertebral basilar system is patent. The carotid systems are paten t. No sizable aneurysm or vascular malformation. There is mild atherosclerotic plaque involving the carotid bifurcations. Hypertrophic and degenerativ e changes of the vertebral column. No evidence of significant stenosis. IMPRESSION: 1. Large intraparenchymal hemorrhage of the cerebellum with fourth ventricular displacement. 2. No sizable intracranial aneurysm. 3. No significant carotid artery stenosis.
== END 2020-07-20 09:40 | disposition other institution (70) ==
LOC: EC 07:18
DX: S06.370A Contusion, laceration, and hemorrhage of cerebellum without loss of consciousness, initial encounter (principal); G47.33 Obstructive sleep apnea (adult) (pediatric); I48.91 Unspecified atrial fibrillation; J45.909 Unspecified asthma, uncomplicated; N18.30 Chronic kidney disease, stage 3 unspecified; E03.9 Hypothyroidism, unspecified; Z79.890 Hormone replacement therapy; Z79.01 Long term (current) use of anticoagulants; Z79.899 Other long term (current) drug therapy; Z91.041 Radiographic dye allergy status; Z98.42 Cataract extraction status, left eye; Z98.41 Cataract extraction status, right eye; Z86.718 Personal history of other venous thrombosis and embolism; Z99.89 Dependence on other enabling machines and devices; W06.XXXA Fall from bed, initial encounter; Y92.003 Bedroom of unspecified non-institutional (private) residence as the place of occurrence of the external cause
CPT/HCPCS: 36415; 93005; 86900; 86901; 80053; 83735; 84484; 85025; 85610; 85730; 86850; 71045; 72125; 70496; 70450; 70498; 99291; 96365; 96368; 96375 ×3; J1200; J2930; C9132; Q9967

== ENCOUNTER 2020-08-23 19:30 | Inpatient (IN) | payer MEDICARE ==
--- NOTE | 2020-08-23 20:00 | ED ---
General Adult HPI - General Chief complaint: Altered Mental Status Stated complaint: Altered Mental Status Time Seen by Provider: 08/23/20 19:30 Source: patient, EMS, RN notes reviewed, old records reviewed Mode of arrival: EMS Limitations: no limitations, altered mental status - History of Present Illness Initial comments: This is a 80-year-old female with a history of chronic A. fib hypertension and arthritis asthma hypothyroidism history DVTs history of Hodgkin's lymphoma who is brought in by EMS for evaluation of fever. Patient did have a fall while on the Eliquis she developed a intracranial hemorrhage which should require evacuation. This was done at [facility] Where the patient was transferred from this facility. While in rehab she apparently started developing symptoms were consistent with Covid 19 and was tested and found to be positive on 08/20. She presents tonight from the [facility] home with complaints of fever third of thrive also has decubitus ulceration. No new neuro symptoms but the patient was thought to be altered. Per paramedics she was found to have a [place] come scale of 14. [place] evaluate the patient appears be awake alert oriented 3. Patient states she has Sogren syndrome - Related Data Home Medications Medication Instructions Recorded Confirmed Cholestyramine (with Sugar) 4 gm PO TID@0800,1400,2100 07/20/20 08/23/20 [Questran] Dexamethasone 6 mg PO DAILY@0800 08/23/20 08/23/20 Levothyroxine Sodium [Synthroid] 112 mcg PO DAILY@0600 08/23/20 08/23/20 Meclizine [Antivert] 12.5 mg PO BID@0800,1700 08/23/20 08/23/20 Oxybutynin Chloride 5 mg PO BID@0800,2100 08/23/20 08/23/20 Pilocarpine [Salagen] 5 mg PO TID@0800,1400,2100 08/23/20 08/23/20 Tamsulosin [Flomax] 0.4 mg PO DAILY@0800 08/23/20 08/23/20 cycloSPORINE 0.05% OPHTH SOLN 1 drop BOTH EYES BID@0800,1700 08/23/20 08/23/20 [Restasis] levETIRAcetam [Keppra] 250 mg PO BID@0800,1700 08/23/20 08/23/20 Allergies Allergy/AdvReac Type Severity Reaction Status Date / Time Iodinated Contrast Media Allergy Rash/Hives Verified 08/23/20 20:55 [Iodinated Contrast Media - IV Dye] Review of Systems ROS Statement: Those systems with pertinent positive or pertinent negative responses have been documented in the HPI. ROS Other: All systems not noted in ROS Statement are negative. Past Medical History Past Medical History: Atrial Fibrillation, Asthma, Cancer, Deep Vein Thrombosis (DVT), GERD/Reflux, Osteoarthritis (OA), Renal Disease, Rheumatoid Arthritis (RA), Sleep Apnea/CPAP/BIPAP, Thyroid Disorder Additional Past Medical History / Comment(s): Autoimmune hepatits (1994), sjogrens, lupus, 2009 DVT R calf, recurrent R lower leg ulcers-seen in [facility] and healed at this time, TOMAS with device used in past then had some bacterial infections and stopped using but is now in process of possible getting another device, osteoporosis, non-Hodgkin's B lymphoma - left thigh January 2015 status post 2 chemo treatments, chronic kidney disease stage III, UTI with sepsis, chronic anemia, hypothyroid, stress incontinence. History of Any Multi-Drug Resistant Organisms: None Reported Past Surgical History: Appendectomy, Breast Surgery, Cholecystectomy, Tonsillectomy Additional Past Surgical History / Comment(s): L breast benign biopsy, paola cataracts, biopsy left thigh mass, BMA, liver bx, lip bx, wound right lower [facility] status post multiple debridements, decub sacral ulcer Past Anesthesia/Blood Transfusion Reactions: No Reported Reaction Past Psychological History: No Psychological Hx Reported Smoking Status: Never smoker Past Alcohol Use History: None Reported Past Drug Use History: None Reported - Past Family History Sister(s) Family Medical History: Osteoarthritis (OA) Additional Family Medical History / Comment(s): Severe arthritis. Mother Family Medical History: Osteoarthritis (OA) Additional Family Medical History / Comment(s): Severe arthritis. General Exam - General Exam Comments Initial Comments: This is a well-developed asthenic appearing female who is awake alert oriented 3 Limitations: no limitations, altered mental status General appearance: alert, in no apparent distress Head exam: Present: atraumatic, normocephalic, normal inspection Eye exam: Present: normal appearance, PERRL, EOMI. Absent: scleral icterus, conjunctival injection, periorbital swelling ENT exam: Present: mucous membranes dry Neck exam: Present: normal inspection. Absent: tenderness, meningismus, lymphadenopathy Respiratory exam: Present: decreased breath sounds, other (Bi-basilar crepitus). Absent: respiratory distress, wheezes, rales, rhonchi, stridor Cardiovascular Exam: Present: regular rate, normal rhythm, normal heart sounds. Absent: systolic murmur, diastolic murmur, rubs, gallop, clicks GI/Abdominal exam: Present: soft, normal bowel sounds. Absent: distended, tenderness, guarding, rebound, rigid Rectal exam: Present: other (No evidence of bleeding there is evidence of his states 3 decubitus ulcer over the coccyx region) Extremities exam: Present: full ROM, normal capillary refill, other (Stasis dermatitis). Absent: tenderness, pedal edema, joint swelling, calf tenderness Back exam: Present: normal inspection Neurological exam: Present: alert, oriented X3, CN II-XII intact Psychiatric exam: Present: normal affect, normal mood Skin exam: Present: warm, dry. Absent: intact, normal color, rash Course Vital Signs 08/23/20 08/23/20 08/23/20 19:37 19:46 21:41 Temperature 100.3 F H Pulse Rate 99 951 H Respiratory 18 18 8 L Rate Blood Pressure 150/99 153/83 O2 Sat by Pulse 94 L 98 Oximetry 08/23/20 22:00 Temperature 100 F H Pulse Rate 89 Respiratory 20 Rate Blood Pressure 151/78 O2 Sat by Pulse 94 L Oximetry EKG Findings - EKG Results: EKG: interpreted by BOLA (Sinus rhythm with PACs rate 91. Interval 136 QRS duration 1:30 QT since QTC 380/467block pattern) Medical Decision Making - Medical Decision Making I did discuss findings with the patient initially as well as Dr. Man. Patient will be admitted - Lab Data Result diagrams: 08/23/20 20:30 08/23/20 20:30 Lab Results 08/23/20 08/23/20 08/23/20 Range/Units 20:30 20:30 20:30 WBC 6.8 (3.8-10.6) k/uL RBC 3.63 L (3.80-5.40) m/uL Hgb 11.3 L (11.4-16.0) gm/dL Hct 33.4 L (34.0-46.0) % MCV 92.1 D (80.0-100.0) fL MCH 31.0 (25.0-35.0) pg MCHC 33.7 (31.0-37.0) g/dL RDW 13.7 (11.5-15.5) % Plt Count 161 (150-450) k/uL MPV 7.6 Neutrophils % 86 % Lymphocytes % 4 % Monocytes % 6 % Eosinophils % 2 % Basophils % 1 % Neutrophils # 5.9 (1.3-7.7) k/uL Lymphocytes # 0.3 L (1.0-4.8) k/uL Monocytes # 0.4 (0-1.0) k/uL Eosinophils # 0.2 (0-0.7) k/uL Basophils # 0.0 (0-0.2) k/uL PT 9.8 (9.0-12.0) sec INR 0.9 (<1.2) APTT 20.2 L (22.0-30.0) sec D-Dimer 2.43 H (<0.60) mg/L FEU Sodium 135 L (137-145) mmol/L Potassium 3.9 (3.5-5.1) mmol/L Chloride 108 H (98-107) mmol/L Carbon Dioxide 24 (22-30) mmol/L Anion Gap 3 mmol/L BUN 24 H (7-17) mg/dL Creatinine 0.92 (0.52-1.04) mg/dL Est GFR (CKD-EPI)AfAm 69 (>60 ml/min/1.73 sqM) Est GFR (CKD-EPI)NonAf 60 (>60 ml/min/1.73 sqM) Glucose 113 H (74-99) mg/dL Plasma Lactic Acid Fabio (0.7-2.0) mmol/L Calcium 8.4 (8.4-10.2) mg/dL Magnesium 1.8 (1.6-2.3) mg/dL Total Bilirubin 0.6 (0.2-1.3) mg/dL AST 32 (14-36) U/L ALT 21 (4-34) U/L Alkaline Phosphatase 91 (38-126) U/L Lactate Dehydrogenase 704 H (313-618) U/L C-Reactive Protein 144.3 H (<10.0) mg/L Total Protein 6.2 L (6.3-8.2) g/dL Albumin 2.8 L (3.5-5.0) g/dL C. difficile (EIA) Intrp (Negative) Influenza Type A RNA (Not Detectd) Influenza Type B (PCR) (Not Detectd) 08/23/20 08/23/20 08/23/20 Range/Units 20:30 21:22 21:40 WBC (3.8-10.6) k/uL RBC (3.80-5.40) m/uL Hgb (11.4-16.0) gm/dL Hct (34.0-46.0) % MCV (80.0-100.0) fL MCH (25.0-35.0) pg MCHC (31.0-37.0) g/dL RDW (11.5-15.5) % Plt Count (150-450) k/uL MPV Neutrophils % % Lymphocytes % % Monocytes % % Eosinophils % % Basophils % % Neutrophils # (1.3-7.7) k/uL Lymphocytes # (1.0-4.8) k/uL Monocytes # (0-1.0) k/uL Eosinophils # (0-0.7) k/uL Basophils # (0-0.2) k/uL PT (9.0-12.0) sec INR (<1.2) APTT (22.0-30.0) sec D-Dimer (<0.60) mg/L FEU Sodium (137-145) mmol/L Potassium (3.5-5.1) mmol/L Chloride (98-107) mmol/L Carbon Dioxide (22-30) mmol/L Anion Gap mmol/L BUN (7-17) mg/dL Creatinine (0.52-1.04) mg/dL Est GFR (CKD-EPI)AfAm (>60 ml/min/1.73 sqM) Est GFR (CKD-EPI)NonAf (>60 ml/min/1.73 sqM) Glucose (74-99) mg/dL Plasma Lactic Acid Fabio 1.1 (0.7-2.0) mmol/L Calcium (8.4-10.2) mg/dL Magnesium (1.6-2.3) mg/dL Total Bilirubin (0.2-1.3) mg/dL AST (14-36) U/L ALT (4-34) U/L Alkaline Phosphatase (38-126) U/L Lactate Dehydrogenase (313-618) U/L C-Reactive Protein (<10.0) mg/L Total Protein (6.3-8.2) g/dL Albumin (3.5-5.0) g/dL C. difficile (EIA) Intrp Negative (Negative) Influenza Type A RNA Not Detected (Not Detectd) Influenza Type B (PCR) Not Detected (Not Detectd) - Radiology Data Radiology results: report reviewed (Imaging reviewed no evidence of PE there is ground glass findings consistent with viral pneumonia), image reviewed Disposition Clinical Impression: Viral syndrome, COVID-19, Febrile illness, acute, Sacral decubitus ulcer, Dehydration, Failure to thrive in adult Disposition: ADMITTED IP TO THIS HOSP Condition: Fair Referrals: Giuseppe Lopez MD [Primary Care Provider] - 1-2 days
--- NOTE | 2020-08-23 20:47 | XR ---
EXAMINATION TYPE: XR chest 1V portable DATE OF EXAM: 08/23/2020 COMPARISON: July 20, 2020 HISTORY: Pneumonia. Chest pain TECHNIQUE: FINDINGS: There is coarse interstitial infiltrate throughout the lungs. Pulmonary vascularity is diff icult to evaluate. There is no pleural effusion. There are chest leads. IMPRESSION: There is interstitial pneumonia that is mostly new compared to old exam.
[2020-08-23 20:56] LABS: Basophils % (A) 1 %; Eosinophils # (A) 0.2 k/uL (0-0.7); Eosinophils % (A) 2 %; HCT 33.4 % (34.0-46.0); HGB 11.3 gm/dL (11.4-16.0); Lymphocytes # (A) 0.3 k/uL (1.0-4.8); Lymphocytes % (A) 4 %; MCHC 33.7 g/dL (31.0-37.0); Mean Platelet Volume 7.6; Monocytes # (A) 0.4 k/uL (0-1.0); Monocytes % (A) 6 %; Neutrophils # (A) 5.9 k/uL (1.3-7.7); Neutrophils % (A) 86 %; Platelet Count 161 k/uL (150-450); RBC 3.63 m/uL (3.80-5.40); RDW 13.7 % (11.5-15.5); WBC 6.8 k/uL (3.8-10.6)
[2020-08-23 20:59] LABS: MCV 92.1 fL (80.0-100.0)
[2020-08-23 21:05] LABS: Albumin 2.8 g/dL (3.5-5.0); Calcium 8.4 mg/dL (8.4-10.2); Potassium 3.9 mmol/L (3.5-5.1); Total Bilirubin 0.6 mg/dL (0.2-1.3); Total Protein 6.2 g/dL (6.3-8.2)
--- NOTE | 2020-08-23 21:08 | CT ---
EXAMINATION TYPE: CT brain wo con DATE OF EXAM: 08/23/2020 COMPARISON: July 20, 2020 HISTORY: Altered mental status. CT DLP: 1099.4 mGycm Automated exposure control for dose reduction was used. There is cerebral atrophy. There is no mass effect nor midline shift. There is no evidence of intracr anial hemorrhage. There is 2 cm hypodensity in the cortex right parietal lobe consistent with old inf arct. There is 4 cm area of hypodensity left cerebellar hemisphere consistent with old infarct and en cephalomalacia. There is left occipital craniotomy defect. IMPRESSION: Left cerebellar encephalomalacia with clearing of the cerebellar parenchymal hemorrhage compared to o ld exam. 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
[2020-08-23 21:22] LABS: INR 0.9 (<1.2); Magnesium 1.8 mg/dL (1.6-2.3); Prothrombin Time 9.8 sec (9.0-12.0)
[2020-08-23 21:25] LABS: D-Dimer 2.43 mg/L FEU (<0.60); Partial Thromboplastin Time 20.2 sec (22.0-30.0)
[2020-08-23 21:32] LABS: C Reactive Protein 144.3 mg/L (<10.0)
[2020-08-23] MEDS ORDERED: FAMOTIDINE 20 MG/2 ML VIAL IV STA (21:35)
[2020-08-23] MEDS ORDERED: methylPREDNISolone SOD SUCCI 125 MG/2 ML VIAL IV STA (21:35)
[2020-08-23] MEDS ORDERED: diphenhydrAMINE 50 MG/ML 1 ML VIAL IVP STA (21:35)
--- NOTE | 2020-08-23 22:27 | CT ---
EXAMINATION TYPE: CT angio chest DATE OF EXAM: 08/23/2020 COMPARISON: None HISTORY: Elevated d-dimer and cough. CT DLP: 267.7 mGycm Automated exposure control for dose reduction was used. CONTRAST: Performed with IV Contrast, patient injected with 80ml mL of Isovue 370. There are 3-D post processed images. There is extensive groundglass interstitial infiltrates throughout the lungs. Ascending aorta measure s 3.9 cm. There is no dissection. Heart is borderline enlarged. There is no pleural effusion. There are no hilar masses. There is no mediastinal adenopathy. There are large pulmonary arteries. I see no filling defects in the pulmonary arteries. There is some spurring in the thoracic spine. There is mild thoracic kyphotic deformity. There is thoracic dextroscoliosis. There is moderate arthritic change in the shoulder joints. IMPRESSION: No evidence of pulmonary embolism. Large pulmonary arteries consistent with pulmonary hypertension. Extensive groundglass pulmonary interstitial pneumonia.
[2020-08-23] MEDS ORDERED: NALOXONE 0.4 MG/ML 1 ML VIAL IV PRN (23:54)
[2020-08-24] MEDS: SODIUM CHLORIDE 0.9% 1,000 ML IV SCH ×3 (00:14→23:10)
--- NOTE | 2020-08-24 02:02 | P.HPIM ---
History of Present Illness H&P Date: 08/24/20 The patient is a 80 yo F with a PMH of afib (not on AC due to recent intracerebral hemm.), HTN, hypothyroidism, hx of DVT, and hx o hodgkins lymphoma who was sent to the hospital from an A[facility] due to fever and diarrhea. The patient previously presented to the hospital on 07/20 at which time she was diagnosed with an intracerebral hemorrhage and was transferred to [facility] from the emergency room. The patient underwent a craniotomy and was sent to a rehab facility where she was then diagnosed with COVID-19 on 08/20. The patient was noted to have fever along with developing watery diarrhea earlier today and was subsequently sent in for further evaluation. The patient at time of the evaluati on notes that she is tired and and that she has had numerous bowel movements throughout the day today, too many to count. Denied additional complaints. She denied chest discomfort, cough, nausea, vomiting, abdominal pain, or shortness of breath. Patient underwent an extensive evaluation in the emergency room with a brain CT that revealed left cerebellar encephalomalacia with clearing of the cerebellar parenchymal hemorrhage. Chest CTA was negative for PE with evidence of pulmonary hypertension along with extensive groundglass interstitial pneumonia. EKG had revealed sinus rhythm with APCs at 91 bpm with a right bundle kelly block. Laboratory evaluation revealed a hemoglobin of 11.3, C. diff negative, sodium 135, BUN 24, creatinine 0.92, glucose 113, lactic acid 1.1. Review of Systems Pertinent positives and negatives as discussed in HPI, a complete review of systems was performed and all other systems are negative. Past Medical History Past Medical History: Atrial Fibrillation, Asthma, Cancer, Deep Vein Thrombosis (DVT), GERD/Reflux, Osteoarthritis (OA), Renal Disease, Rheumatoid Arthritis (RA), Sleep Apnea/CPAP/BIPAP, Thyroid Disorder Additional Past Medical History / Comment(s): Autoimmune hepatits (1994), sjogrens, lupus, 2008 DVT R calf, recurrent R lower leg ulcers-seen in [facility] and healed at this time, TOMAS with device used in past then had some bacterial infections and stopped using but is now in process of possible getting another device, osteoporosis, non-Hodgkin's B lymphoma - left thigh January 2015 status post 2 chemo treatments, chronic kidney disease stage III, UTI with sepsis, chronic anemia, hypothyroid, stress incontinence. History of Any Multi-Drug Resistant Organisms: None Reported Past Surgical History: Appendectomy, Breast Surgery, Cholecystectomy, Tonsillectomy Additional Past Surgical History / Comment(s): L breast benign biopsy, paola cataracts, biopsy left thigh mass, BMA, liver bx, lip bx, wound right [facility] status post multiple debridements, decub sacral ulcer Past Anesthesia/Blood Transfusion Reactions: No Reported Reaction Past Psychological History: No Psychological Hx Reported Smoking Status: Never smoker Past Alcohol Use History: None Reported Past Drug Use History: None Reported - Past Family History Sister(s) Family Medical History: Osteoarthritis (OA) Additional Family Medical History / Comment(s): Severe arthritis. Mother Family Medical History: Osteoarthritis (OA) Additional Family Medical History / Comment(s): Severe arthritis. Medications and Allergies Home Medications Medication Instructions Recorded Confirmed Type Cholestyramine (with Sugar) 4 gm PO TID@0800,1400,2100 07/20/20 08/23/20 History [Questran] Dexamethasone 6 mg PO DAILY@0800 08/23/20 08/23/20 History Levothyroxine Sodium [Synthroid] 112 mcg PO DAILY@0600 08/23/20 08/23/20 History Meclizine [Antivert] 12.5 mg PO BID@0800,1700 08/23/20 08/23/20 History Oxybutynin Chloride 5 mg PO BID@0800,2100 08/23/20 08/23/20 History Pilocarpine [Salagen] 5 mg PO TID@0800,1400,2100 08/23/20 08/23/20 History Tamsulosin [Flomax] 0.4 mg PO DAILY@0800 08/23/20 08/23/20 History cycloSPORINE 0.05% OPHTH SOLN 1 drop BOTH EYES BID@0800,1700 08/23/20 08/23/20 History [Restasis] levETIRAcetam [Keppra] 250 mg PO BID@0800,1700 08/23/20 08/23/20 History Allergies Allergy/AdvReac Type Severity Reaction Status Date / Time Iodinated Contrast Media Allergy Rash/Hives Verified 08/23/20 20:55 [Iodinated Contrast Media - IV Dye] Physical Exam Vitals: Vital Signs Temp Pulse Resp BP Pulse Ox 08/24/20 00:10 99.6 F 78 18 142/68 97 08/23/20 22:00 100 F H 89 20 151/78 94 L 08/23/20 21:41 95 18 153/83 98 08/23/20 19:46 18 08/23/20 19:37 100.3 F H 99 18 150/99 94 L Intake and Output 08/23/20 08/23/20 08/24/20 14:59 22:59 06:59 Other: Weight 60.781 kg General: Chronically ill-appearing elderly female, no distress, appears at stated age, normal weight Derm: Stage 3-4 decubitus ulcer overlying the coccy Head: atraumatic, normocephalic, symmetric Eyes: EOMI, no lid lag, anicteric sclera, pupils equal round reactive to light ENT: Nose and ears atraumatic, no thrush, no pharyngeal erythema Neck: No thyromegaly, no cervical lymphadenopathy, trachea midline, supple Mouth: no lip lesion, mucus membranes moist Cardiovascular: S1S2 reg, no murmur, positive posterior tibial pulse bilateral, no edema, capillary refill less than 2 seconds Lungs: Bilateral scattered rhonchi, no wheezing or rales appreciated, no accessory muscle use Abdominal: soft, nontender to palpation, no guarding, no appreciable organomegaly, normal bowel sounds Ext: no gross muscle atrophy, muscle strength 5 out of 5 in all 4 extremities grossly, no contractures, Neuro: CN II-XI grossly intact, light touch intact all 4 extremities, finger to nose within normal limits, Psych: Awake, oriented to person and place, not fully oriented to time Results CBC & Chem 7: 08/23/20 20:30 08/23/20 20:30 Labs: Abnormal Lab Results - Last 24 Hours (Table) 08/23/20 08/23/20 08/23/20 Range/Units 20:30 20:30 20:30 RBC 3.63 L (3.80-5.40) m/uL Hgb 11.3 L (11.4-16.0) gm/dL Hct 33.4 L (34.0-46.0) % Lymphocytes # 0.3 L (1.0-4.8) k/uL APTT 20.2 L (22.0-30.0) sec D-Dimer 2.43 H (<0.60) mg/L FEU Sodium 135 L (137-145) mmol/L Chloride 108 H (98-107) mmol/L BUN 24 H (7-17) mg/dL Glucose 113 H (74-99) mg/dL Lactate Dehydrogenase 704 H (313-618) U/L C-Reactive Protein 144.3 H (<10.0) mg/L Total Protein 6.2 L (6.3-8.2) g/dL Albumin 2.8 L (3.5-5.0) g/dL Assessment and Plan Plan: COVID 19 pneumonitis -Vitamin C, zinc, melatonin, and vitamin D -Continue dexamethasone -IV fluid resuscitation -Monitor inflammatory markers -Supplemental oxygen -F/u procalcitonin levels Prerenal RASHAWN -Continue with IV fluids -Monitor BMP Chronic conditions: Hypothyroidism, hypertension, hyperlipidemia, A. fib -Continue with home medications DVT prophylaxis -IPCDs The patient is admitted with an anticipated greater than 2 midnight stay for evaluation of COVID pneumonitis CODE STATUS: Full Code Discussed with: Patient Anticipated discharge date: 3-[address]: SNF A total of 40 minutes was spent on the care of this complex patient more than 50% of the time was spent in counseling and care coordination.
[2020-08-24 07:59] LABS: HCT 33.4 % (34.0-46.0); HGB 10.9 gm/dL (11.4-16.0); MCH 30.7 pg (25.0-35.0); MCHC 32.8 g/dL (31.0-37.0); MCV 93.7 fL (80.0-100.0); Mean Platelet Volume 7.6; Platelet Count 151 k/uL (150-450); RBC 3.57 m/uL (3.80-5.40); RDW 14.1 % (11.5-15.5); WBC 6.3 k/uL (3.8-10.6)
[2020-08-24] MEDS: cycloSPORINE 0.05% OPHTH 0.4 ML DROPERETTE BOTH EYES SCH ×2 (08:27→14:58)
[2020-08-24] MEDS: CHOLESTYRAMINE (WITH SUGAR) 4 GM PACKET PO SCH ×3 (08:27→23:10)
[2020-08-24] MEDS: MECLIZINE 12.5 MG TAB PO SCH ×2 (08:29→16:12)
[2020-08-24] MEDS: levETIRAcetam 250 MG TAB PO SCH ×2 (08:29→16:12)
[2020-08-24] MEDS: dexAMETHasone 4 MG TAB PO SCH (08:29)
[2020-08-24] MEDS: ZINC SULFATE 220 MG CAP PO SCH (08:30)
[2020-08-24] MEDS: ASCORBIC ACID 500 MG TAB PO SCH (08:30)
[2020-08-24] MEDS: PILOCARPINE 5 MG TAB PO SCH ×2 (08:30→14:58)
[2020-08-24] MEDS: FAMOTIDINE 20 MG TAB PO SCH (08:30)
[2020-08-24] MEDS: CHOLECALCIFEROL 400 UNIT TAB PO SCH (08:31)
[2020-08-24] MEDS: OXYBUTYNIN CHLORIDE 5 MG TAB PO SCH ×2 (08:42→23:10)
[2020-08-24] MEDS: TAMSULOSIN 0.4 MG CAP.ER.24H PO SCH (08:42)
[2020-08-24 09:22] LABS: Ferritin 597.4 ng/mL (10.0-291.0)
[2020-08-24] MEDS: LEVOTHYROXINE 112 MCG TAB PO SCH (11:09)
--- NOTE | 2020-08-24 13:01 | P.CONS ---
History of Present Illness - Reason for Consult Consult date: 08/24/20 wound care - History of Present Illness this is a 80-year-old patient being seen by the wound care center as a 4 S. overflow in the ER. Patient states that she's had an ulceration to her coccyx for approximately 6 weeks. She was initially being treated at [facility] she is unsure of the dressings at that time. She was then treated and it extended care facility and has been transitioned to her home where she had pr ivate duty care come in to assist her. Patient states that she does not know what has been utilized for her wound however it is tender to touch. Review of Systems Review Of Systems: Constitutional: No fever, no chills, no night sweats. No weight change. No weakness, fatigue or lethargy. No daytime sleepiness. Integumentary:reports wounds, no lesions. No rash or pruritus. No unusual bruising. No change in hair or nails. Past Medical History Past Medical History: Atrial Fibrillation, Asthma, Cancer, Deep Vein Thrombosis (DVT), GERD/Reflux, Osteoarthritis (OA), Renal Disease, Rheumatoid Arthritis (RA), Sleep Apnea/CPAP/BIPAP, Thyroid Disorder Additional Past Medical History / Comment(s): Autoimmune hepatits (1994), sjogrens, lupus, 2009 DVT R calf, recurrent R lower leg ulcers-seen in [facility] and healed at this time, TOMAS with device used in past then had some bacterial infec tions and stopped using but is now in process of possible getting another device, osteoporosis, non-Hodgkin's B lymphoma - left thigh January 2015 status post 2 chemo treatments, chronic kidney disease stage III, UTI with sepsis, chronic anemia, hypothyroid, stress incontinence. History of Any Multi-Drug Resistant Organisms: None Reported Past Surgical History: Appendectomy, Breast Surgery, Cholecystectomy, Tonsillectomy Additional Past Surgical History / Comment(s): L breast benign biopsy, paola cataracts, biopsy left thigh mass, BMA, liver bx, lip bx, wound right lower [facility] status post multiple debridements, decub sacral ulcer Past Anesthesia/Blood Transfusion Reactions: No Reported Reaction Past Psychological History: No Psychological Hx Reported Smoking Status: Never smoker Past Alcohol Use History: None Reported Past Drug Use History: None Reported - Past Family History Sister(s) Family Medical History: Osteoarthritis (OA) Additional Family Medical History / Comment(s): Severe arthritis. Mother Family Medical History: Osteoarthritis (OA) Additional Family Medical History / Comment(s): Severe arthritis. Medications and Allergies Home Medications Medication Instructions Recorded Confirmed Type Cholestyramine (with Sugar) 4 gm PO TID@0800,1400,2100 07/20/20 08/23/20 History [Questran] Dexamethasone 6 mg PO DAILY@0800 08/23/20 08/23/20 History Levothyroxine Sodium [Synthroid] 112 mcg PO DAILY@0600 08/23/20 08/23/20 History Meclizine [Antivert] 12.5 mg PO BID@0800,1700 08/23/20 08/23/20 History Oxybutynin Chloride 5 mg PO BID@0800,2100 08/23/20 08/23/20 History Pilocarpine [Salagen] 5 mg PO TID@0800,1400,2100 08/23/20 08/23/20 History Tamsulosin [Flomax] 0.4 mg PO DAILY@0800 08/23/20 08/23/20 History cycloSPORINE 0.05% OPHTH SOLN 1 drop BOTH EYES BID@0800,1700 08/23/20 08/23/20 History [Restasis] levETIRAcetam [Keppra] 250 mg PO BID@0800,1700 08/23/20 08/23/20 History Allergies Allergy/AdvReac Type Severity Reaction Status Date / Time Iodinated Contrast Media Allergy Rash/Hives Verified 08/23/20 20:55 [Iodinated Contrast Media - IV Dye] Physical Exam Vitals: Vital Signs Temp Pulse Resp BP Pulse Ox 08/24/20 08:00 18 08/24/20 06:41 97.2 F L 86 18 143/72 98 08/24/20 05:21 68 16 147/60 97 08/24/20 01:30 97.9 F 89 20 158/96 96 08/24/20 00:10 99.6 F 78 18 142/68 97 08/23/20 22:00 100 F H 89 20 151/78 94 L 08/23/20 21:41 95 18 153/83 98 08/23/20 19:46 18 08/23/20 19:37 100.3 F H 99 18 150/99 94 L Intake and Output 08/23/20 08/24/20 08/24/20 22:59 06:59 14:59 Other: Weight 60.781 kg Physical exam: General Appearance: Alert, cooperative, no distress, appears stated age. Skin: full thickness grade 4 pressure ulcer to the sacrum. Able to palpate bone moderate granulation seen within the wound bed with moderate Slough. Measuring approximately 2.5 x 3 x 2.5 cm, minimal serous drainage noted. Wound edges attached to the wound base. Excoriation noted to the periwound all other Skin color, texture, tugor normal, no rashes or lesions. Neurologic: Alert oriented x3 Results CBC & Chem 7: 08/24/20 07:17 08/23/20 20:30 Labs: Abnormal Lab Results - Last 24 Hours (Table) 08/23/20 08/23/20 08/23/20 Range/Units 20:30 20:30 20:30 RBC 3.63 L (3.80-5.40) m/uL Hgb 11.3 L (11.4-16.0) gm/dL Hct 33.4 L (34.0-46.0) % Lymphocytes # 0.3 L (1.0-4.8) k/uL APTT 20.2 L (22.0-30.0) sec D-Dimer 2.43 H (<0.60) mg/L FEU Sodium 135 L (137-145) mmol/L Chloride 108 H (98-107) mmol/L BUN 24 H (7-17) mg/dL Glucose 113 H (74-99) mg/dL Ferritin 597.4 H (10.0-291.0) ng/mL Lactate Dehydrogenase 704 H (313-618) U/L C-Reactive Protein 144.3 H (<10.0) mg/L Total Protein 6.2 L (6.3-8.2) g/dL Albumin 2.8 L (3.5-5.0) g/dL Procalcitonin (0.02-0.09) ng/mL 08/23/20 08/24/20 Range/Units 20:30 07:17 RBC 3.57 L (3.80-5.40) m/uL Hgb 10.9 L (11.4-16.0) gm/dL Hct 33.4 L (34.0-46.0) % Lymphocytes # (1.0-4.8) k/uL APTT (22.0-30.0) sec D-Dimer (<0.60) mg/L FEU Sodium (137-145) mmol/L Chloride (98-107) mmol/L BUN (7-17) mg/dL Glucose (74-99) mg/dL Ferritin (10.0-291.0) ng/mL Lactate Dehydrogenase (313-618) U/L C-Reactive Protein (<10.0) mg/L Total Protein (6.3-8.2) g/dL Albumin (3.5-5.0) g/dL Procalcitonin 0.21 H (0.02-0.09) ng/mL Assessment and Plan (1) Stage IV pressure ulcer of sacral region Current Visit: Yes Status: Acute Code(s): L89.154 - PRESSURE ULCER OF SACRAL REGION, STAGE 4 SNOMED Code(s): 911932669 Plan: apply negative pressure wound VAC 125 mmHg with black foam Change Monday and Monday. Patient will benefit from advanced wound care which can be done at extended care facility or return to the wound care center. assess surface of the rhythm for proper surface. Turn patient every 2 hours. Consult nutrition. Thank you for the consultation any questions please contact the wound care center
--- NOTE | 2020-08-24 14:18 | P.PN ---
Subjective Progress Note Date: 08/24/20 Patient is complaining of a lot of diarrhea and pain in the perineal area. Nursing staff informed me that patient has 7 bowel movement since this morning. Stools are loose with no obvious blood. C. diff screen was negative. Objective - Vital Signs Vital signs: Vital Signs Temp 97.2 F L 08/24/20 06:41 Pulse 86 08/24/20 06:41 Resp 18 08/24/20 08:00 BP 143/72 08/24/20 06:41 Pulse Ox 98 08/24/20 06:41 Intake & Output 08/23/20 08/24/20 08/24/20 18:59 06:59 18:59 Weight 60.781 kg - Exam General: The patient is awake and alert, in no distress Eye: there is normal conjunctiva bilaterally. Neck: The neck is supple, there is no JVD. Cardiovascular: Normal S1-S2, no S3-S4, no murmurs. Respiratory: Lungs clear to auscultation bilaterally Gastrointestinal: Abdomen is soft, nontender Musculoskeletal: There is no pedal edema. Neurological:. Speech is normal. Skin: Skin is warm and dry - Labs CBC & Chem 7: 08/24/20 07:17 08/23/20 20:30 Labs: Abnormal Lab Results - Last 24 Hours (Table) 08/23/20 08/23/20 08/23/20 Range/Units 20:30 20:30 20:30 RBC 3.63 L (3.80-5.40) m/uL Hgb 11.3 L (11.4-16.0) gm/dL Hct 33.4 L (34.0-46.0) % Lymphocytes # 0.3 L (1.0-4.8) k/uL APTT 20.2 L (22.0-30.0) sec D-Dimer 2.43 H (<0.60) mg/L FEU Sodium 135 L (137-145) mmol/L Chloride 108 H (98-107) mmol/L BUN 24 H (7-17) mg/dL Glucose 113 H (74-99) mg/dL Ferritin 597.4 H (10.0-291.0) ng/mL Lactate Dehydrogenase 704 H (313-618) U/L C-Reactive Protein 144.3 H (<10.0) mg/L Total Protein 6.2 L (6.3-8.2) g/dL Albumin 2.8 L (3.5-5.0) g/dL Procalcitonin (0.02-0.09) ng/mL 08/23/20 08/24/20 Range/Units 20:30 07:17 RBC 3.57 L (3.80-5.40) m/uL Hgb 10.9 L (11.4-16.0) gm/dL Hct 33.4 L (34.0-46.0) % Lymphocytes # (1.0-4.8) k/uL APTT (22.0-30.0) sec D-Dimer (<0.60) mg/L FEU Sodium (137-145) mmol/L Chloride (98-107) mmol/L BUN (7-17) mg/dL Glucose (74-99) mg/dL Ferritin (10.0-291.0) ng/mL Lactate Dehydrogenase (313-618) U/L C-Reactive Protein (<10.0) mg/L Total Protein (6.3-8.2) g/dL Albumin (3.5-5.0) g/dL Procalcitonin 0.21 H (0.02-0.09) ng/mL Assessment and Plan Assessment: This is a 80-year-old female with complex past medical history noted below who presented to the hospital with diarrhea and fever. Patient was evaluated in the ER and currently admitted to the hospital for further management of medical problems noted below. 1. Severe diarrhea, may be attributed to acute viral enteritis. C. diff screen was negative. Salagen may be a contributing factor and currently discontinued. Continue Questran 4 times a day. IV fluid hydration. May consider GI consult if diarrhea not improving within the next day or 2. 2. 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 Wound management consulted. Helen reciate recommendations. MRI of the sacrum ordered to rule out underlying osteomyelitis. 3. Recent diagnosis of COVID19 pneumonitis, currently on dexamethasone. I'll have to clarify what day. Continue vitamin C, zinc, melatonin, and vitamin D. 4. Acute hypoxic respiratory failure: Probably secondary to #3. Wean off O2 as tolerated for O2 sats greater than 90%. 5. Chronic medical problems, paroxysmal atrial fibrillation not on anticoagulation secondary to recent intracranial bleed, hypertension, hypothyroidism, history of DVT 6. CODE STATUS: Discussed with patient today. Patient would like to be DO NOT RESUSCITATE/DO NOT INTUBATE 7. DVT prophylaxis with SCDs
[2020-08-24] MEDS: ACETAMINOPHEN TAB 325 MG TAB PO PRN (19:02)
[2020-08-25] MEDS: SODIUM CHLORIDE 0.9% 1,000 ML IV SCH ×2 (05:55→19:44)
[2020-08-25] MEDS: LEVOTHYROXINE 112 MCG TAB PO SCH (05:56)
[2020-08-25] MEDS: ZINC SULFATE 220 MG CAP PO SCH (08:48)
[2020-08-25] MEDS: TAMSULOSIN 0.4 MG CAP.ER.24H PO SCH (08:48)
[2020-08-25] MEDS: CHOLESTYRAMINE (WITH SUGAR) 4 GM PACKET PO SCH ×3 (08:48→19:45)
[2020-08-25] MEDS: dexAMETHasone 4 MG TAB PO SCH (08:48)
[2020-08-25] MEDS: levETIRAcetam 250 MG TAB PO SCH ×2 (08:48→17:40)
[2020-08-25] MEDS: MECLIZINE 12.5 MG TAB PO SCH ×2 (08:48→17:41)
[2020-08-25] MEDS: ASCORBIC ACID 500 MG TAB PO SCH (08:48)
[2020-08-25] MEDS: FAMOTIDINE 20 MG TAB PO SCH (08:49)
[2020-08-25] MEDS: OXYBUTYNIN CHLORIDE 5 MG TAB PO SCH ×2 (08:49→20:18)
[2020-08-25] MEDS: cycloSPORINE 0.05% OPHTH 0.4 ML DROPERETTE BOTH EYES SCH ×2 (08:49→17:41)
[2020-08-25 09:32] LABS: African American GFR (CKD) 81.3 (60.0-200.0); Anion Gap 7.9 mmol/L (4.00-12.00); BUN/Creat Ratio 33.75 Ratio (12.00-20.00); Calcium 8.4 mg/dL (8.7-10.3); Carbon Dioxide 20.1 mmol/L (21.6-31.8); Magnesium 1.8 mg/dL (1.5-2.4); Non-African American GFR(CKD) 70.1 (60.0-200.0); Potassium 4.1 mmol/L (3.5-5.5)
--- NOTE | 2020-08-25 11:16 | P.PN ---
Subjective Progress Note Date: 08/25/20 Patient is doing fairly well today. Her diarrhea improved. Pain and discomfort in the groin area is improving. According to nursing staff, erythema also improving. Patient herself denies any shortness of breath or cough. She is not requiring oxygen. Objective - Vital Signs Vital signs: Vital Signs Temp 97.4 F L 08/25/20 10:55 Pulse 75 08/25/20 10:55 Resp 16 08/25/20 10:55 BP 130/73 08/25/20 10:55 Pulse Ox 94 L 08/25/20 10:55 Intake & Output 08/24/20 08/25/20 08/25/20 18:59 06:59 18:59 Intake Total 200 Balance 200 Weight 60.781 kg Intake: Oral 200 Other: Voiding Method Bedside Commode Bedside Commode Diaper Diaper # Voids 2 1 1 # Bowel Movements 7 - Exam General: The patient is awake and alert, in no distress Eye: there is normal conjunctiva bilaterally. Neck: The neck is supple, there is no JVD. Cardiovascular: Normal S1-S2, no S3-S4, no murmurs. Respiratory: Lungs clear to auscultation bilaterally Gastrointestinal: Abdomen is soft, nontender Musculoskeletal: There is no pedal edema. Neurological:. Speech is normal. Skin: Skin is warm and dry - Labs CBC & Chem 7: 08/24/20 07:17 08/25/20 06:20 Labs: Abnormal Lab Results - Last 24 Hours (Table) 08/23/20 08/25/20 Range/Units 21:22 06:20 Chloride 111 H (96-109) mmol/L Carbon Dioxide 20.1 L (21.6-31.8) mmol/L BUN/Creatinine Ratio 33.75 H (12.00-20.00) Ratio Glucose 119 H (70-110) mg/dL Calcium 8.4 L (8.7-10.3) mg/dL Coronavirus (PCR) Detected A (Not Detected) Microbiology - Last 24 Hours (Table) 08/23/20 20:40 Blood Culture - Preliminary Blood No Growth after 24 hours 08/23/20 20:30 Blood Culture - Preliminary Blood No Growth after 24 hours Assessment and Plan Assessment: This is a 80-year-old female with complex past medical history noted below who presented to the hospital with diarrhea and fever. Patient was evaluated in the ER and currently admitted to the hospital for further management of medical problems noted below. 1. Severe diarrhea, may be attributed to acute viral enteritis. Now improving clinically. C. diff screen was negative. Salagen may be a contributing factor and currently discontinued. Continue Questran 4 times a day. IV fluid hydration. May consider GI consult if diarrhea not improving within the next day or 2. 2. 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 Wound management consulted. Appreciate recommendations. CT of the sacrum/coccyx ordered to rule out u nderlying osteomyelitis. 3. Recent diagnosis of COVID19 pneumonitis, currently on dexamethasone. I'll have to clarify what day. Continue vitamin C, zinc, melatonin, and vitamin D. 4. Acute hypoxic respiratory failure: Probably secondary to #3. Wean off O2 as tolerated for O2 sats greater than 90%. 5. Chronic medical problems, paroxysmal atrial fibrillation not on anticoagulation secondary to recent intracranial bleed, hypertension, hypothyroidism, history of DVT 6. CODE STATUS: Discussed with patient today. Patient would like to be DO NOT RESUSCITATE/DO NOT INTUBATE 7. DVT prophylaxis with SCDs
[2020-08-25 12:57] VITALS: BMI 21.6
[2020-08-25] MEDS: CHOLECALCIFEROL 400 UNIT TAB PO SCH (13:51)
[2020-08-25] MEDS: ACETAMINOPHEN TAB 325 MG TAB PO PRN ×2 (13:51→20:17)
[2020-08-25] MEDS ORDERED: predniSONE 50 MG TAB PO ONE (20:00)
[2020-08-25] MEDS ORDERED: diphenhydrAMINE 25 MG CAP PO ONE (20:00)
[2020-08-26] MEDS: LEVOTHYROXINE 112 MCG TAB PO SCH (06:11)
[2020-08-26] MEDS: dexAMETHasone 4 MG TAB PO SCH (08:36)
[2020-08-26] MEDS: TAMSULOSIN 0.4 MG CAP.ER.24H PO SCH (08:36)
[2020-08-26] MEDS: CHOLECALCIFEROL 400 UNIT TAB PO SCH (08:36)
[2020-08-26] MEDS: FAMOTIDINE 20 MG TAB PO SCH (08:36)
[2020-08-26] MEDS: ZINC SULFATE 220 MG CAP PO SCH (08:36)
[2020-08-26] MEDS: CHOLESTYRAMINE (WITH SUGAR) 4 GM PACKET PO SCH ×2 (08:36→13:32)
[2020-08-26] MEDS: OXYBUTYNIN CHLORIDE 5 MG TAB PO SCH ×2 (08:36→20:31)
[2020-08-26] MEDS: levETIRAcetam 250 MG TAB PO SCH ×2 (08:36→17:17)
[2020-08-26] MEDS: ASCORBIC ACID 500 MG TAB PO SCH (08:36)
[2020-08-26] MEDS: SODIUM CHLORIDE 0.9% 1,000 ML IV SCH (08:36)
[2020-08-26] MEDS: cycloSPORINE 0.05% OPHTH 0.4 ML DROPERETTE BOTH EYES SCH ×2 (08:37→17:17)
--- NOTE | 2020-08-26 10:13 | CT ---
EXAMINATION TYPE: CT pelvis w con DATE OF EXAM: 08/26/2020 COMPARISON: 07/13/2015 INDICATION: Abscess DLP: 267.4 mGycm, Automated exposure control for dose reduction was used. CONTRAST: 100 mL of Isovue 300. Study performed without Oral Contrast TECHNIQUE: Axial images were obtained from above the iliac crests to the pubic rami in the axial plan e at 5 mm thick sections. Reconstructed images are reviewed on the computer in the coronal plane. FINDINGS: CT PELVIS: Diverticular changes are within the sigmoid colon. No acute diverticulitis is evident. Studies perfor med without oral contrast. Appendix: Not visualized. No suspicious dilated tubular structure or inflammatory changes evident. Urinary bladder: Urinary bladder is distended. Density is diffusely increased throughout the urinary bladder is of uncertain significance. Consider cystitis or proteinaceous material within the urinary bladder. No layering to suggest hemorrhage is identified however. Genitourinary structures: Uterus contains calcification. Left adnexa appears unremarkable. There appe ars to be a low-density structure measuring 1.6 cm on the right ovary may be a cyst. This can be furt her evaluated with ultrasound. Osseous structures: No suspicious lytic or sclerotic lesions. There is narrowing of the hip joint spa oli more so on the right compatible degenerative change. Sacroiliac joint degenerative changes are al so noted. There are some degenerative changes within the lumbar spine facets. Soft tissue: There is a soft tissue wound along the right buttocks. This remains within the subcutane ous tissue but extends to the coccyx. No coccygeal cortical destruction is evident. Early osteomyelit is however cannot be excluded on the basis of this examination. No abscess formation is identified. IMPRESSIONS: 1. Soft tissue wound within the posterior right buttocks extends to the coccyx. No suspicious erosio n to suggest advanced osteomyelitis is evident. Early osteomyelitis cannot be excluded. No abscess fo rmation is identified at this time. 2. Diffuse increased density within the tendon urinary bladder of uncertain significance. 3. 1.6 cm right ovarian cyst. This can be further evaluated with ultrasound. 4. Degenerative joint changes discussed above
[2020-08-26] MEDS: MECLIZINE 12.5 MG TAB PO SCH ×2 (10:45→17:17)
[2020-08-26 12:26] LABS: African American GFR (CKD) 81.3 (60.0-200.0); Anion Gap 6.9 mmol/L (4.00-12.00); BUN/Creat Ratio 38.75 Ratio (12.00-20.00); C Reactive Protein 2.5 mg/dL (0.0-0.8); Calcium 8.8 mg/dL (8.7-10.3); Carbon Dioxide 19.1 mmol/L (21.6-31.8); Non-African American GFR(CKD) 70.1 (60.0-200.0); Potassium 4.4 mmol/L (3.5-5.5)
--- NOTE | 2020-08-26 13:32 | P.PN ---
Subjective Progress Note Date: 08/26/20 Patient is doing well today. Her diarrhea resolved. She had a normal bowel movement last night. Objective - Vital Signs Vital signs: Vital Signs Temp 97.4 F L 08/26/20 10:06 Pulse 85 08/26/20 10:06 Resp 18 08/26/20 10:06 BP 146/70 08/26/20 10:06 Pulse Ox 95 08/26/20 10:06 Intake & Output 08/25/20 08/26/20 08/26/20 18:59 06:59 18:59 Intake Total 100 Balance 100 Weight 60.781 kg Intake: Oral 100 Other: Voiding Method Bedside Commode Bedside Commode Diaper Diaper # Voids 5 - Exam General: The patient is awake and alert, in no distress Eye: there is normal conjunctiva bilaterally. Neck: The neck is supple, there is no JVD. Cardiovascular: Normal S1-S2, no S3-S4, no murmurs. Respiratory: Lungs clear to auscultation bilaterally Gastrointestinal: Abdomen is soft, nontender Musculoskeletal: There is no pedal edema. Neurological:. Speech is normal. Skin: Skin is warm and dry - Labs CBC & Chem 7: 08/24/20 07:17 08/26/20 06:43 Labs: Abnormal Lab Results - Last 24 Hours (Table) 08/26/20 Range/Units 06:43 Chloride 113 H (96-109) mmol/L Carbon Dioxide 19.1 L (21.6-31.8) mmol/L BUN 31.0 H (9.0-27.0) mg/dL BUN/Creatinine Ratio 38.75 H (12.00-20.00) Ratio Glucose 151 H (70-110) mg/dL C-Reactive Protein 2.5 H (0.0-0.8) mg/dL Microbiology - Last 24 Hours (Table) 08/23/20 20:40 Blood Culture - Preliminary Blood No Growth after 48 hours 08/23/20 20:30 Blood Culture - Preliminary Blood No Growth after 48 hours Assessment and Plan Assessment: This is a 80-year-old female with complex past medical history noted below who presented to the hospital with diarrhea and fever. Patient was evaluated in the ER and currently admitted to the hospital for further management of medical problems noted below. 1. Severe diarrhea on presentation, may be attributed to acute viral enteritis. Now resolved. C. diff screen was negative. Salagen may be a contributing factor and currently discontinued. We will discontinue Questran. 2. 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 Wound management consulted. Appreciate recommendations. CT of the sacrum/coccyx showed no evidence of abscess formation or osteomyelitis. Continue topical wound care 3. Recent diagnosis of COVID19 pneumonitis, currently on dexamethasone day #3. Continue vitamin C, zinc, melatonin, and vitamin D. 4. Acute hypoxic respiratory failure: Probably secondary to #3. Wean off O2 as tolerated for O2 sats greater than 90%. 5. Chronic medical problems, paroxysmal atrial fibrillation not on anticoagulation secondary to recent intracranial bleed, hypertension, hypothyroidism, history of DVT 6. CODE STATUS: Discussed with patient. Patient would like to be DO NOT RESUSCITATE/DO NOT INTUBATE 7. DVT prophylaxis with SCDs Awaiting placement. 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
[2020-08-27] MEDS: SODIUM CHLORIDE 0.9% 1,000 ML IV SCH (01:45)
[2020-08-27] MEDS: ACETAMINOPHEN TAB 325 MG TAB PO PRN (03:23)
[2020-08-27] MEDS: LEVOTHYROXINE 112 MCG TAB PO SCH (05:30)
[2020-08-27] MEDS: MECLIZINE 12.5 MG TAB PO SCH ×2 (08:12→16:42)
[2020-08-27] MEDS: levETIRAcetam 250 MG TAB PO SCH ×2 (08:12→16:42)
[2020-08-27] MEDS: FAMOTIDINE 20 MG TAB PO SCH (08:12)
[2020-08-27] MEDS: CHOLECALCIFEROL 400 UNIT TAB PO SCH (08:12)
[2020-08-27] MEDS: TAMSULOSIN 0.4 MG CAP.ER.24H PO SCH (08:12)
[2020-08-27] MEDS: ZINC SULFATE 220 MG CAP PO SCH (08:13)
[2020-08-27] MEDS: ASCORBIC ACID 500 MG TAB PO SCH (08:13)
[2020-08-27] MEDS: OXYBUTYNIN CHLORIDE 5 MG TAB PO SCH (08:13)
[2020-08-27] MEDS: cycloSPORINE 0.05% OPHTH 0.4 ML DROPERETTE BOTH EYES SCH ×2 (08:13→16:42)
[2020-08-27] MEDS: dexAMETHasone 4 MG TAB PO SCH (08:13)
[2020-08-27 09:51] LABS: African American GFR (CKD) 70.5 (60.0-200.0); Anion Gap 6.3 mmol/L (4.00-12.00); BUN/Creat Ratio 33.33 Ratio (12.00-20.00); Carbon Dioxide 21.7 mmol/L (21.6-31.8); Non-African American GFR(CKD) 60.8 (60.0-200.0); Potassium 4.4 mmol/L (3.5-5.5)
[2020-08-27 10:31] VITALS: RESP 18
[2020-08-27 15:25] VITALS: BP 141/87; PULSE 91; TEMP 98.3
--- NOTE | 2020-08-27 15:29 | P.DS ---
Providers Date of admission: 08/23/20 23:54 Attending physician: Fili Man MD Primary care physician: Giuseppe Lopez MD - Discharge Diagnosis(es) (1) COVID-19 The patient was diagnosed with Covid 19 on 08/20 her main symptom was diarrhea which has now resolved. The patient received dexamethasone currently day Current Visit: Yes Status: Acute (2) Stage IV pressure ulcer of sacral region The patient was seen by surgery on wound VAC was placed continue to turn every [address] of the pelvis which did not show any evidence of osteomyelitis or abscess Current Visit: Yes Status: Acute (3) Dehydration This has resolved Current Visit: Yes Status: Acute Hospital Course: The patient is a 80-year-old female with history of atrial fibrillation multiple anti-cooperation due to recent intracranial hemorrhage. She also has history of hypertension hypothyroidism DVT on Hodgkin's lymphoma. The patient was at an [facility] and was sent to the emergency room secondary to fever and diarrhea. The patient was previously hospitalized 07/20 at which time should intracranial hemorrhage. She is status post craniotomy and was in rehab facility where she was diagnosed with "19 on 08/20. The patient had a CTA which was negative for pulmonary embolism EKG showed sinus rhythm with APCs at 91 bpm. The patient was hospitalized and was treated with dexamethasone, fluids her diarrhea has resolved. The patient was also seen by surgery for sacral decubitus and had a pelvic CT didn't show any evidence of osteomyelitis or abscess she had a Broviac placed needs continue nutritional optimization wound VAC management and is stable for discharge to extended care facility. Time spent 32 minutes Assessment: The patient's hematemesis alert and oriented sitting up in a chair denied any complaints Patient Condition at Discharge: Fair Plan - Discharge Summary Discharge Rx Participant: No New Discharge Prescriptions: No Action Cholestyramine (with Sugar) [Questran] 4 gm PO TID@0800,1400,2100 Tamsulosin [Flomax] 0.4 mg PO DAILY@0800 Pilocarpine [Salagen] 5 mg PO TID@0800,1400,2100 cycloSPORINE 0.05% OPHTH SOLN [Restasis] 1 drop BOTH EYES BID@0800,1700 Meclizine [Antivert] 12.5 mg PO BID@0800,1700 Oxybutynin Chloride 5 mg PO BID@0800,2100 Levothyroxine Sodium [Synthroid] 112 mcg PO DAILY@0600 levETIRAcetam [Keppra] 250 mg PO BID@0800,1700 Dexamethasone 6 mg PO DAILY@0800 Discharge Medication List Cholestyramine (with Sugar) [Questran] 4 gm PO TID@0800,1400,2100 07/20/20 [History] Dexamethasone 6 mg PO DAILY@0800 08/23/20 [History] Levothyroxine Sodium [Synthroid] 112 mcg PO DAILY@0600 08/23/20 [History] Meclizine [Antivert] 12.5 mg PO BID@0800,1700 08/23/20 [History] Oxybutynin Chloride 5 mg PO BID@0800,209908/23/20 [History] Pilocarpine [Salagen] 5 mg PO TID@0800,1400,209908/23/20 [History] Tamsulosin [Flomax] 0.4 mg PO DAILY@0800 08/23/20 [History] cycloSPORINE 0.05% OPHTH SOLN [Restasis] 1 drop BOTH EYES BID@0800,1700 08/23/20 [History] levETIRAcetam [Keppra] 250 mg PO BID@0800,1700 08/23/20 [History] Follow up Appointment(s)/Referral(s): Giuseppe Lopez MD [Primary Care Provider] - 1-2 days Patient Instructions/Handouts: Dehydration (DC), Fall Prevention for Older Adults (DC), Community Acquired Pneumonia (DC) Activity/Diet/Wound Care/Special Instructions: Wound vac settings 125mmhg, continuous med suction. Change MWF. 1 small piece black foam bridged to thigh Discharge Disposition: TRANSFER TO SNF/ECF
== END 2020-08-27 17:45 | DRG 177 ==
LOC: EC 19:30 → 4SSUR 23:54
PROVIDERS: ADMIT Internal Medicine; ATTEND Internal Medicine
DX: U07.1 COVID-19 (principal); L89.154 Pressure ulcer of sacral region, stage 4; J96.01 Acute respiratory failure with hypoxia; J12.89 Other viral pneumonia; N17.9 Acute kidney failure, unspecified; I48.20 Chronic atrial fibrillation, unspecified; R62.7 Adult failure to thrive; M35.00 Sjogren syndrome, unspecified; M06.9 Rheumatoid arthritis, unspecified; J45.909 Unspecified asthma, uncomplicated; Z91.81 History of falling; Z87.820 Personal history of traumatic brain injury; E03.9 Hypothyroidism, unspecified; E78.5 Hyperlipidemia, unspecified; E86.0 Dehydration; G93.89 Other specified disorders of brain; I48.0 Paroxysmal atrial fibrillation; I12.9 Hypertensive chronic kidney disease with stage 1 through stage 4 chronic kidney disease, or unspecified chronic kidney disease; N18.30 Chronic kidney disease, stage 3 unspecified; Z79.890 Hormone replacement therapy; Z79.899 Other long term (current) drug therapy; Z85.71 Personal history of Hodgkin lymphoma; Z86.718 Personal history of other venous thrombosis and embolism; Z92.21 Personal history of antineoplastic chemotherapy; Z87.440 Personal history of urinary (tract) infections; R19.7 Diarrhea, unspecified; M81.0 Age-related osteoporosis without current pathological fracture; M19.90 Unspecified osteoarthritis, unspecified site; N39.3 Stress incontinence (female) (male); D64.9 Anemia, unspecified; Z90.89 Acquired absence of other organs; Z90.49 Acquired absence of other specified parts of digestive tract; Z98.42 Cataract extraction status, left eye; Z98.41 Cataract extraction status, right eye; Z82.61 Family history of arthritis
CPT/HCPCS: 36415; 70450; 71045; 71275; 72193; 80048; 80053; 82728; 83605; 83615; 83735; 84145; 85025; 85027; 85379; 85610; 85730; 86140; 87040; 87324; 87502; 93005; 96374; 96375; 99285